=== PATIENT | male | born 1975 | race Two or more races ===

== ENCOUNTER 2016-12-12 10:20 | Inpatient (IN) | payer OTHER ==
[2016-12-12 12:09] VITALS: BMI 21.9
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
[2016-12-12] MEDS ORDERED: guaiFENesin/D-METHORPHAN HB 10 ML UNIT-DOSE CUPS PO PRN (14:38)
[2016-12-12] MEDS ORDERED: MENTHOL/PHENOL 1 EACH UD MM PRN (14:38)
[2016-12-12] MEDS ORDERED: hydrOXYzine PAMOATE 50 MG CAPSULE (FP) PO PRN (14:38)
[2016-12-12] MEDS ORDERED: MAG HYDROX/AL HYDROX/SIMETH 30 ML UNIT-DOSE CUP PO PRN (14:38)
[2016-12-12] MEDS ORDERED: MAGNESIUM CITRATE 300 ML BOTTLE PO PRN (14:38)
[2016-12-12] MEDS ORDERED: P-EPHED 60MG/TRIPROLIDI 2.5MG TABLET PO PRN (14:38)
[2016-12-12] MEDS ORDERED: NICOTINE POLACRILEX 2 MG GUM BUC PRN (14:38)
[2016-12-12] MEDS ORDERED: LOPERAMIDE HCL 2 MG CAPSULE PO PRN (14:38)
[2016-12-12] MEDS ORDERED: MAGNESIUM HYDROX 2400MG/30ML ORAL SUSPENSION 30 ML CUP PO PRN (14:38)
[2016-12-12] MEDS ORDERED: ACETAMINOPHEN 325 MG TABLET (FP) PO PRN (14:38)
[2016-12-12] MEDS ORDERED: IBUPROFEN 400 MG TABLET (FP) PO PRN (14:38)
[2016-12-12] MEDS ORDERED: ALBUTEROL SO4 18 GM HFA INHALER IH PRN (14:53)
[2016-12-12] MEDS ORDERED: METHADONE HCL 10 MG TABLET (FOR DETOX USE ONLY) PO ONE ×2 (15:48→23:00)
[2016-12-12] MEDS: diazePAM 5 MG TABLET PO PRN ×2 (15:58→19:47)
[2016-12-12] MEDS: NICOTINE 14 MG/24 HOURS TOPICAL PATCH TD SCH (15:59)
[2016-12-12 16:09] LABS: HIV 1 & 2 AB NEGATIVE; HIV 1 AGp24 NEGATIVE
[2016-12-12 16:56] LABS: MCH 27.3 pg (25.7-33.7); MEAN CELL VOLUME 82.8 fl (80-96); MEAN PLT VOLUME 8.8 fl (7.5-11.1); PLATELET COUNT 173 K/MM3 (134-434); RDW 13.3 % (11.9-15.9); WHITE BLOOD COUNT 5.1 K/mm3 (4.0-10.0)
[2016-12-12 17:07] LABS: ANION GAP 8 (8-16); CALCIUM 9.1 mg/dL (8.5-10.1); CO2 33 mmol/L (21-32); GLUCOSE,RANDOM 91 mg/dL (74-106)
[2016-12-12 17:10] LABS: ALK PHOS 73 U/L (45-117); BILIRUBIN,TOTAL 0.6 mg/dL (0.2-1.0); CREATININE 0.8 mg/dL (0.7-1.3); SGOT/AST 18 U/L (15-37); SGPT/ALT 34 U/L (12-78); TOT PROT 7.5 g/dl (6.4-8.2)
[2016-12-12] MEDS: CYCLOBENZAPRINE HCL 10 MG TABLET (FP) PO PRN (17:23)
[2016-12-12] MEDS: BACITRACIN 0.9 GM PACKET TP SCH (18:34)
[2016-12-12 21:57] LABS: URINE APPEARANCE CLEAR; URINE BILIRUBIN NEGATIVE (NEGATIVE); URINE BLOOD NEGATIVE (NEGATIVE); URINE COLOR LTYELLOW; URINE GLUCOSE (UA) NEGATIVE (NEGATIVE); URINE KETONE NEGATIVE (NEGATIVE); URINE NITRITE NEGATIVE (NEGATIVE); URINE PROTEIN NEGATIVE (NEGATIVE); URINE UROBILINOGEN NEGATIVE mg/dL (0.2-1.0)
[2016-12-12] MEDS: THIAMINE HCL 100 MG TABLET (FP) PO SCH (22:05)
[2016-12-12] MEDS: MONTELUKAST NA 10 MG TABLET PO SCH (22:06)
[2016-12-12] MEDS: GABAPENTIN 400 MG CAPSULE (FP) PO SCH (22:06)
[2016-12-12 22:47] LABS: URINE LEUK ESTERASE Negative (NEGATIVE)
[2016-12-13] MEDS: diazePAM 5 MG TABLET PO PRN ×6 (01:38→22:11)
[2016-12-13] MEDS: CYCLOBENZAPRINE HCL 10 MG TABLET (FP) PO PRN ×2 (05:21→14:20)
--- NOTE | 2016-12-13 09:49 | PN ---
[facility] COWS - Scale Resting Pulse: 0= [place] 80 or Below Sweatin= Chills/Flushing Restless Observation: 3= Extraneous Movement Pupil Size: 2= Moderately Dilated Bone or Joint Aches: 4=Acute Joint/Muscle Pain Runny Nose/ Eye Tearin= None GI Upset > 30mins: 0= None Tremor Observation of Outstretched Hands: 1= Tremor [place], Not Seen Yawning Observation: 1= 1-2x During Session Anxiety or Irritability: 2=Irritable/Anxious Goose Flesh Skin: 0=Smooth Skin COWS Score: 14 BHS Progress Note (SOAP) Subjective: ANXIETY,SWEATS,CHILLS, MUSCLE ACHES. Objective: 12/13/16 09:48 Vital Signs Temperature 96.1 F L 12/13/16 09:35 Pulse Rate 80 12/13/16 09:35 Respiratory Rate 18 12/13/16 09:35 Blood Pressure 115/62 12/13/16 09:35 O2 Sat by Pulse Oximetry (%) Laboratory Last Values WBC 5.1 K/mm3 (4.0-10.0) 12/12/16 14:00 RBC 5.20 M/mm3 (4.00-5.60) 12/12/16 14:00 Hgb 14.2 GM/dL (11.7-16.9) 12/12/16 14:00 Hct 43.0 % (35.4-49) 12/12/16 14:00 MCV 82.8 fl (80-96) 12/12/16 14:00 MCH 27.3 pg (25.7-33.7) 12/12/16 14:00 MCHC 33.0 g/dl (32.0-35.9) 12/12/16 14:00 RDW 13.3 % (11.9-15.9) 12/12/16 14:00 Plt Count 173 K/MM3 (134-434) 12/12/16 14:00 MPV 8.8 fl (7.5-11.1) 12/12/16 14:00 Sodium 139 mmol/L (136-145) 12/12/16 14:00 Potassium 4.5 mmol/L (3.5-5.1) 12/12/16 14:00 Chloride 98 mmol/L (98-107) 12/12/16 14:00 Carbon Dioxide 33 mmol/L (21-32) H 12/12/16 14:00 Anion Gap 8 (8-16) 12/12/16 14:00 BUN 18 mg/dL (7-18) 12/12/16 14:00 Creatinine 0.8 mg/dL (0.7-1.3) 12/12/16 14:00 Creat Clearance w eGFR > 60 (>60) 12/12/16 14:00 Random Glucose 91 mg/dL (74-106) 12/12/16 14:00 Calcium 9.1 mg/dL (8.5-10.1) 12/12/16 14:00 Total Bilirubin 0.6 mg/dL (0.2-1.0) 12/12/16 14:00 AST 18 U/L (15-37) 12/12/16 14:00 ALT 34 U/L (12-78) 12/12/16 14:00 Alkaline Phosphatase 73 U/L (45-117) 12/12/16 14:00 Total Protein 7.5 g/dl (6.4-8.2) 12/12/16 14:00 Albumin 4.0 g/dl (3.4-5.0) 12/12/16 14:00 Urine Color Ltyellow 12/12/16 21:30 Urine Appearance Clear 12/12/16 21:30 Urine pH 6.0 (5.0-8.0) 12/12/16 21:30 Ur Specific [place] 1.020 (1.005-1.025) 12/12/16 21:30 Urine Protein Negative (NEGATIVE) 12/12/16 21:30 Urine Glucose (UA) Negative (NEGATIVE) 12/12/16 21:30 Urine Ketones Negative (NEGATIVE) 12/12/16 21:30 Urine Blood Negative (NEGATIVE) 12/12/16 21:30 Urine Nitrite Negative (NEGATIVE) 12/12/16 21:30 Urine Bilirubin Negative (NEGATIVE) 12/12/16 21:30 Urine Urobilinogen Negative mg/dL (0.2-1.0) 12/12/16 21:30 Ur Leukocyte Esterase Negative (NEGATIVE) 12/12/16 21:30 HIV 1&2 Antibody Screen Negative 12/12/16 12:00 HIV P24 Antigen Negative 12/12/16 12:00 Assessment: 12/13/16 09:49 WITHDRAWAL SX Plan: CONTINUE DETOX
[2016-12-13] MEDS ORDERED: METHADONE HCL 10 MG TABLET (FOR DETOX USE ONLY) PO ONE (10:00)
[2016-12-13] MEDS: GABAPENTIN 400 MG CAPSULE (FP) PO SCH ×2 (10:04→22:08)
[2016-12-13] MEDS: PANTOPRAZOLE 20 MG TABLET (FP) PO SCH (10:04)
[2016-12-13] MEDS: PRENATAL VITAMINS W/ FOLIC ACID TABLET (FP) PO SCH (10:04)
[2016-12-13] MEDS: BACITRACIN 0.9 GM PACKET TP SCH (10:04)
[2016-12-13] MEDS: NICOTINE 14 MG/24 HOURS TOPICAL PATCH TD SCH (10:05)
--- NOTE | 2016-12-13 12:05 | EKG ---
Test Reason : Blood Pressure : / mmHG Vent. Rate : 061 BPM Atrial Rate : 061 BPM P-R Int : 122 ms QRS Dur : 092 ms QT Int : 424 ms P-R-T Axes : 030 062 056 degrees QTc Int : 426 ms NORMAL SINUS RHYTHM NORMAL ECG NO PREVIOUS ECGS AVAILABLE Confirmed by DONITA STANTON MD ([id number]) on 12/13/2016 12:04:52 PM Referred By: Confirmed By:DONITA STANTON MD
--- NOTE | 2016-12-13 13:05 | CONSULT ---
[facility] Psychiatric Consult - Data Date of interview: 12/13/16 Admission source: [facility] Identifying data: Another admission to [facility] for this 41 y/o male seeking detox treatment on for heroin and xanax dependence.Patient is single without children,domiciled,unemployed and supported on SSI benefits. Substance Abuse History: Confirmed by the patient in this interview. Smoking Cessation. Smoking history: Current every day smoker. Have you smoked in the past 12 months: Yes. Aproximately how many cigarettes per day: 4. Cigars Per Day: 0. Hx Chewing Tobacco Use: No. Initiated information on smoking cessation : Yes. 'Breaking Loose' booklet given: 12/12/16 (GIVEN TO PATIENT.). - Substance & Tx. History. Hx Alcohol Use: No. Hx Substance Use: Yes. Substance Use Type: Heroin, Tranquilizers. Hx Substance Use Treatment: Yes ( Previous Detox admissions at [facility]; Last Detox Admssion: 11/2016.). - Substances Abused. Heroin. Route: Injection. Frequency: Daily. Amount used: 5-10 BAGS. Age of first use: 21. Date of Last Use: 12/11/16. KLONOPIN OR XANAX. Route: Oral. Frequency: Daily. Amount used: 3-5 PILLS (1- 2 mg per pill). Age of first use: 18. Date of Last Use: 12/12/16 Medical History: Remarkable for GERD,anemia,bronchial asthma and hepatitis C. Psychiatric History: Diagnosed with Bipolar Disorder,MDD and Anxiety Disorder.Onset of psychiatric disturbances (age 14).History of multiple psychiatric hospitalizations (all occurred in [place], [place] and [facility]) .Patient denies active OPD care at this time.Used to be on a regimen of remeron 30 mg/hs + wellbutrin XL 150 mg/day + ambien 10 mg/hs." I have not taken these medications for a while." Mr Mazariegos admits to a history of suicide attempt years ago (via overdose with pills). Physical/Sexual Abuse/Trauma History: No reported history of abuse. Additional Comment: Urine Drug Screen Results: OPI-Opiates, MTD-Methadone.Noted. Mental Status Exam - Mental Status Exam Alert and Oriented to: Time, Place, Person Cognitive Function: Good Patient Appearance: Unkempt, Disheveled (covered with tattoos) Mood: Nervous, Withdrawn, Anxious Affect: Mood Congruent Patient Behavior: Fatigued, Cooperative Speech Pattern: Clear Voice Loudness: Normal Thought Process: Goal Oriented Thought Disorder: Not Present Hallucinations: Denies Suicidal Ideation: Denies Homicidal Ideation: Denies Insight/Judgement: Poor Sleep: Poorly, Difficulty falling asleep Appetite: Fair Muscle strength/Tone: Normal Gait/Station: Normal Psychiatric Findings - Problem List ([place] 1, 2,3) (1) Opioid dependence with withdrawal Current Visit: Yes Status: Acute (2) Drug-induced mood disorder Current Visit: Yes Status: Acute (3) Sedative hypnotic or anxiolytic dependence Current Visit: Yes Status: Chronic (4) Nicotine dependence Current Visit: Yes Status: Chronic Qualifiers: Nicotine product type: cigarettes Substance use status: uncomplicated Qualified Code(s): F17.210 - Nicotine dependence, cigarettes, uncomplicated; F17.210 - Nicotine dependence, cigarettes, uncomplicated (5) Substance induced mood disorder Current Visit: Yes Status: Acute (6) Asthma Current Visit: Yes Status: Chronic (7) Gastroesophageal reflux disease Current Visit: Yes Status: Chronic (8) Hepatitis C Current Visit: Yes Status: Chronic Qualifiers: Viral hepatitis chronicity: chronic Hepatic coma status: without hepatic coma Qualified Code(s): B18.2 - Chronic viral hepatitis C; B18.2 - Chronic viral hepatitis C; B18.2 - Chronic viral hepatitis C; B18.2 - Chronic viral hepatitis C (9) History of herniated intervertebral disc Current Visit: Yes Status: Chronic Comment: Thoracic and Lumbar Spinal Areas. (10) Chronic back pain Current Visit: No Status: Chronic (11) Neuropathy Current Visit: No Status: Chronic (12) Insomnia Current Visit: Yes Status: Acute - Initial Treatment Plan Initial Treatment Plan: Psychoeducation.Detoxification.WellbutrinXL 150 mg po daily (patient's request).Mr Mazariegos is informed of risk of seizures.Agrees to follow this careplan.Observation.Pharmacy claims are reviewed : most recent script for wellbutrin XL and remeron were issued on 10/08/15 at Pharmacy).
[2016-12-13] MEDS: MONTELUKAST NA 10 MG TABLET PO SCH (22:08)
[2016-12-13] MEDS: THIAMINE HCL 100 MG TABLET (FP) PO SCH (22:09)
[2016-12-14] MEDS: diazePAM 5 MG TABLET PO PRN ×3 (05:07→14:18)
[2016-12-14] MEDS: CYCLOBENZAPRINE HCL 10 MG TABLET (FP) PO PRN ×2 (05:07→14:18)
[2016-12-14] MEDS ORDERED: METHADONE HCL 5 MG TABLET (FOR DETOX USE ONLY) PO ONE (10:00)
[2016-12-14] MEDS: PRENATAL VITAMINS W/ FOLIC ACID TABLET (FP) PO SCH (10:10)
[2016-12-14] MEDS: NICOTINE 14 MG/24 HOURS TOPICAL PATCH TD SCH (10:10)
[2016-12-14] MEDS: PANTOPRAZOLE 20 MG TABLET (FP) PO SCH (10:10)
[2016-12-14] MEDS: GABAPENTIN 400 MG CAPSULE (FP) PO SCH (10:10)
[2016-12-14] MEDS: BACITRACIN 0.9 GM PACKET TP SCH (10:10)
--- NOTE | 2016-12-14 11:48 | PN ---
[facility] CIWA - CIWA Score Nausea/Vomitin-No Nausea/No Vomiting Muscle Tremors: 4-Moderate,w/Arms Extend Anxiety: 4-Mod. Anxious/Guarded Agitation: 1-Slight > Activity Paroxysmal Sweats: 3 Orientation: 0-Oriented Tacttile Disturbances: 2-Mild Itch/Numbness/Burn Auditory Disturbances: 0-None Visual Disturbances: 2-Mild Sensitivity Headache: 0-None Present CIWA-Ar Total Score: 16 S Progress Note (SOAP) Subjective: Sweating, Anxious, Body Aches, Tremors. Objective: PT. A & O X 3, OBSERVED AMBULATING ON UNIT. NO ACUTE DISTRESS. 12/14/16 11:52 Vital Signs Temperature 96.8 F L 12/14/16 09:53 Pulse Rate 74 12/14/16 09:53 Respiratory Rate 18 12/14/16 09:53 Blood Pressure 113/82 12/14/16 09:53 O2 Sat by Pulse Oximetry (%) Laboratory Tests 12/12/16 12/12/16 12/12/16 12:00 14:00 14:00 WBC 5.1 RBC 5.20 Hgb 14.2 Hct 43.0 MCV 82.8 MCH 27.3 MCHC 33.0 RDW 13.3 Plt Count 173 MPV 8.8 Sodium 139 Potassium 4.5 Chloride 98 Carbon Dioxide 33 H Anion Gap 8 BUN 18 Creatinine 0.8 Creat Clearance w eGFR > 60 Random Glucose 91 Calcium 9.1 Total Bilirubin 0.6 AST 18 ALT 34 Alkaline Phosphatase 73 Total Protein 7.5 Albumin 4.0 Urine Color Urine Appearance Urine pH Ur Specific [place] Urine Protein Urine Glucose (UA) Urine Ketones Urine Blood Urine Nitrite Urine Bilirubin Urine Urobilinogen Ur Leukocyte Esterase RPR Titer HIV 1&2 Antibody Screen Negative HIV P24 Antigen Negative 12/12/16 12/12/16 14:00 21:30 WBC RBC Hgb Hct MCV MCH MCHC RDW Plt Count MPV Sodium Potassium Chloride Carbon Dioxide Anion Gap BUN Creatinine Creat Clearance w eGFR Random Glucose Calcium Total Bilirubin AST ALT Alkaline Phosphatase Total Protein Albumin Urine Color Ltyellow Urine Appearance Clear Urine pH 6.0 Ur Specific [place] 1.020 Urine Protein Negative Urine Glucose (UA) Negative Urine Ketones Negative Urine Blood Negative Urine Nitrite Negative Urine Bilirubin Negative Urine Urobilinogen Negative Ur Leukocyte Esterase Negative RPR Titer Nonreactive HIV 1&2 Antibody Screen HIV P24 Antigen LABS NOTED. Assessment: 12/14/16 11:53 WITHDRAWAL SYMPTOMS. Plan: CONTINUE DETOX.
[2016-12-14 17:44] VITALS: BP 104/60; PULSE 85; TEMP 97.3
--- NOTE | 2016-12-14 22:34 | DS ---
[facility] Detox Discharge Summary Admission Date: 12/12/16 Discharge Date: 12/14/16 - History Present History: Opioid Dependence Additional Comments: received nurse call that the patient wants to leave the facility refuses to wait face to face with the provider Pertinent Past History: hepatitis c asthma nicotine dependence - Physical Exam Results Vital Signs: Vital Signs Temperature 97.3 F L 12/14/16 17:43 Pulse Rate 85 12/14/16 17:43 Respiratory Rate 18 12/14/16 17:43 Blood Pressure 104/60 12/14/16 17:43 O2 Sat by Pulse Oximetry (%) Pertinent Admission Physical Exam Findings: withdrawal sx Laboratory Last Values WBC 5.1 K/mm3 (4.0-10.0) 12/12/16 14:00 RBC 5.20 M/mm3 (4.00-5.60) 12/12/16 14:00 Hgb 14.2 GM/dL (11.7-16.9) 12/12/16 14:00 Hct 43.0 % (35.4-49) 12/12/16 14:00 MCV 82.8 fl (80-96) 12/12/16 14:00 MCH 27.3 pg (25.7-33.7) 12/12/16 14:00 MCHC 33.0 g/dl (32.0-35.9) 12/12/16 14:00 RDW 13.3 % (11.9-15.9) 12/12/16 14:00 Plt Count 173 K/MM3 (134-434) 12/12/16 14:00 MPV 8.8 fl (7.5-11.1) 12/12/16 14:00 Sodium 139 mmol/L (136-145) 12/12/16 14:00 Potassium 4.5 mmol/L (3.5-5.1) 12/12/16 14:00 Chloride 98 mmol/L (98-107) 12/12/16 14:00 Carbon Dioxide 33 mmol/L (21-32) H 12/12/16 14:00 Anion Gap 8 (8-16) 12/12/16 14:00 BUN 18 mg/dL (7-18) 12/12/16 14:00 Creatinine 0.8 mg/dL (0.7-1.3) 12/12/16 14:00 Creat Clearance w eGFR > 60 (>60) 12/12/16 14:00 Random Glucose 91 mg/dL (74-106) 12/12/16 14:00 Calcium 9.1 mg/dL (8.5-10.1) 12/12/16 14:00 Total Bilirubin 0.6 mg/dL (0.2-1.0) 12/12/16 14:00 AST 18 U/L (15-37) 12/12/16 14:00 ALT 34 U/L (12-78) 12/12/16 14:00 Alkaline Phosphatase 73 U/L (45-117) 12/12/16 14:00 Total Protein 7.5 g/dl (6.4-8.2) 12/12/16 14:00 Albumin 4.0 g/dl (3.4-5.0) 12/12/16 14:00 Urine Color Ltyellow 12/12/16 21:30 Urine Appearance Clear 12/12/16 21:30 Urine pH 6.0 (5.0-8.0) 12/12/16 21:30 Ur Specific [place] 1.020 (1.005-1.025) 12/12/16 21:30 Urine Protein Negative (NEGATIVE) 12/12/16 21:30 Urine Glucose (UA) Negative (NEGATIVE) 12/12/16 21:30 Urine Ketones Negative (NEGATIVE) 12/12/16 21:30 Urine Blood Negative (NEGATIVE) 12/12/16 21:30 Urine Nitrite Negative (NEGATIVE) 12/12/16 21:30 Urine Bilirubin Negative (NEGATIVE) 12/12/16 21:30 Urine Urobilinogen Negative mg/dL (0.2-1.0) 12/12/16 21:30 Ur Leukocyte Esterase Negative (NEGATIVE) 12/12/16 21:30 RPR Titer Nonreactive (NONREACTIVE) 12/12/16 14:00 HIV 1&2 Antibody Screen Negative 12/12/16 12:00 HIV P24 Antigen Negative 12/12/16 12:00 lab noted - Treatment Hospital Course: Detox Protocol Followed, Responded well - Medication Discharge Medications: Ambulatory Orders Montelukast Na [Singulair -] 10 mg PO HS 11/08/11 Albuterol Sulfate Inhaler - [Ventolin HFA Inhaler -] 2 inh PO Q6H PRN 01/19/14 Gabapentin [Neurontin -] 800 mg PO Q12H 01/19/14 Omeprazole [Prilosec] 20 mg PO DAILY 07/27/15 Bupropion HCl [Wellbutrin Xl -] 150 mg PO DAILY #30 tab.sr.24h 11/05/15 Mirtazapine [Remeron -] 15 mg PO HS #30 tablet 11/05/15 Bupropion HCl [Wellbutrin Xl -] 150 mg PO DAILY #30 tab.sr.24h 12/13/16 - Diagnosis (1) Opioid dependence with withdrawal Status: Acute (2) Asthma Status: Chronic (3) Gastroesophageal reflux disease Status: Chronic (4) Hepatitis C Status: Resolved Qualifiers: Viral hepatitis chronicity: unspecified Hepatic coma status: without hepatic coma Qualified Code(s): B19.20 - Unspecified viral hepatitis C without hepatic coma; B19.20 - Unspecified viral hepatitis C without hepatic coma (5) Nicotine dependence Status: Acute Qualifiers: Nicotine product type: cigarettes Substance use status: in withdrawal Qualified Code(s): F17.213 - Nicotine dependence, cigarettes, with withdrawal; F17.213 - Nicotine dependence, cigarettes, with withdrawal (6) Neuropathy Status: Chronic - AMA Did Patient Leave Against Medical Advice: Yes
[2016-12-15] MEDS ORDERED: METHADONE HCL 5 MG TABLET (FOR DETOX USE ONLY) PO ONE (10:00)
[2016-12-16] MEDS ORDERED: METHADONE HCL 10 MG TABLET (FOR DETOX USE ONLY) PO ONE (10:00)
[2016-12-17] MEDS ORDERED: METHADONE HCL 5 MG TABLET (FOR DETOX USE ONLY) PO ONE (06:00)
== END 2016-12-14 19:19 | disposition left against medical advice (07) | DRG 770 ==
LOC: YASAS 10:20 → Y3N 14:17
PROVIDERS: ADMIT Internal Medicine; ATTEND Internal Medicine
PROC: HZ2ZZZZ Detoxification Services for Substance Abuse Treatment (ICD-10-PCS; principal; 2016-12-12)
DX: F11.23 Opioid dependence with withdrawal (principal); F13.20 Sedative, hypnotic or anxiolytic dependence, uncomplicated; F17.213 Nicotine dependence, cigarettes, with withdrawal; F31.9 Bipolar disorder, unspecified; F19.24 Other psychoactive substance dependence with psychoactive substance-induced mood disorder; F41.8 Other specified anxiety disorders; J45.909 Unspecified asthma, uncomplicated; K21.9 Gastro-esophageal reflux disease without esophagitis; B19.20 Unspecified viral hepatitis C without hepatic coma; G62.9 Polyneuropathy, unspecified; M54.5 Low back pain; G89.29 Other chronic pain; G47.00 Insomnia, unspecified; D50.9 Iron deficiency anemia, unspecified; Z88.0 Allergy status to penicillin; Z91.5 Personal history of self-harm
CPT/HCPCS: 36415; 80053; 81003; 85027; 86593; 87389; 93005; 93010

== ENCOUNTER 2017-05-27 08:22 | Inpatient (IN) | payer OTHER ==
[2017-05-27 10:10] VITALS: BMI 22.7
--- NOTE | 2017-05-27 10:37 | HP ---
COWS - Scale Resting Pulse: 0= [place] 80 or Below Sweatin=Flushed/Facial Moisture Restless Observation: 1= Difficult to Sit Still Pupil Size: 1= Pupils >than Normal Bone or Joint Aches: 2= Severe Diffuse Aches Runny Nose/ Eye Tearin= Nasal Congestion GI Upset > 30mins: 2= Nausea/Diarrhea Tremor Observation: 1= Tremor [place], Not Seen Yawning Observation: 1= 1-2x During Session Anxiety or Irritability: 2=Irritable/Anxious Goose Flesh Skin: 0=Smooth Skin COWS Score: [address] [facility] Chief Complaint: Patient presents for Heroin withdrawal symptoms. Allergies/Adverse Reactions: Allergies Allergy/AdvReac Type Severity Reaction Status Date / Time penicillin G Allergy Severe Rash Verified 05/27/17 10:09 History of Present Illness: Patient presents for Heroin withdrawal symptoms. Has history of depression, anxiety, asthma and anemia. Currently treated for depression and anxiety with Klonipin and Wellbutrin at [facility]. Was admitted to [facility] for detox in 12/2016. Patient left AMA due to anxiety. Started using heroin and methadone strips soon after. Denies having any seizures or blackouts. No SI reported. Denies any recent suicide attempts. Exam Limitations: No Limitations - Ebola screening Have you traveled outside of the country in the last 21 days: No (N) Have you had contact with anyone from an Ebola affected area: No Have you been sick,other than usual withdrawal symptoms: No Do you have a fever: No - Review of Systems Constitutional: Chills, Night Sweats, Changes in sleep, Unexplained wgt Loss EENT: reports: Nose Congestion Respiratory: reports: No Symptoms reported Cardiac: reports: No Symptoms Reported GI: reports: Diarrhea, Nausea, Abdominal cramping : reports: No Symptoms Reported Musculoskeletal: reports: Joint Pain, Muscle Pain Integumentary: reports: Sweating Neuro: reports: No Symptoms reported, Headache Endocrine: reports: Increased Thirst, Unexplained Weight Loss Hematology: reports: Anemia Psychiatric: reports: Orientated x3, Anxious, Depressed Patient History - Patient Medical History Hx Anemia: Yes (Iron-Deficiency.) Hx Asthma: Yes Hx Chronic Obstructive Pulmonary Disease (COPD): No Hx Cancer: No Hx Cardiac Disorders: No Hx Congestive Heart Failure: No Hx Hypertension: No Hx Hypercholesterolemia: No Hx Pacemaker: No HX Cerebrovascular Accident: No Hx Seizures: No Hx Dementia: No Hx Diabetes: No Hx Gastrointestinal Disorders: Yes (acid reflux) Hx Liver Disease: Yes (Hepatitis C (diagnosed 2011); Undetectable Viral Load without treatment.) Hx Genitourinary Disorders: No Hx Sexually Transmitted Disorders: No Hx Renal Disease (ESRD): No Hx Thyroid Disease: No Hx Human Immunodeficiency Virus (HIV): No (LAST TESTED 12/12/16. RESULTS NEGATIVE) Hx Hepatitis C: Yes (Diagnosed 2011); Undetectable Viral Load without treatment. ) Hx Depression: Yes Hx Suicide Attempt: Yes (pill overdose at age 21. Pt denies SI and any recent attempts of suicide) Hx Bipolar Disorder: Yes (On meds.) Hx Schizophrenia: No - Patient Surgical History Past Surgical History: No Hx Neurologic Surgery: No Hx Cataract Extraction: No Hx Cardiac Surgery: No Hx Lung Surgery: No Hx Breast Surgery: No Hx Breast Biopsy: No Hx Abdominal Surgery: No Hx Appendectomy: No Hx Cholecystectomy: No Hx Genitourinary Surgery: No Hx Section: No Hx Orthopedic Surgery: No Anesthesia Reaction: No - PPD History Previous Implant?: Yes Implanted On Prior [facility] Admission?: Yes Date: 12/14/16 Results: 0 mm - Smoking Cessation Smoking history: Current every day smoker Have you smoked in the past 12 months: Yes Aproximately how many cigarettes per day: 4 Cigars Per Day: 0 Hx Chewing Tobacco Use: No Initiated information on smoking cessation: Yes 'Breaking Loose' booklet given: 05/27/17 - Substances Abused Heroin Route: Injection Frequency: Daily Amount used: 4 bags Age of first use: 21 Date of Last Use: 05/27/17 Family Disease History - Family Disease History Family Disease History: Heart Disease: Mother, Other: Father (DRUG AND ALCOHOL, ALIVE STILL DRINKS) Admission Physical Exam BHS - Vital Signs Vital Signs: Vital Signs - 24 hr 05/27/17 10:08 Temperature 96.9 F L Pulse Rate 73 Respiratory 20 Rate Blood Pressure 121/74 BHS Breath Alcohol Content Breath Alcohol Content: 0 Urine Drug Screen - Results Drug Screen Negative: No Urine Drug Screen Results: OPI-Opiates, BZO-Benzodiazepines, MTD-Methadone, TCA- Tricyclic Antidepress Inpatient Rehab Admission - Initial Determination Are CD services needed?: Yes Free of communicable disease: Yes Not in need of hospitalization: Yes - Rehab Admission Criteria Previous failed treatment: Yes Poor recovery environment: Yes Comorbidities: Yes Lacks judgement: Yes
[2017-05-27] MEDS ORDERED: chlordiazePOXIDE HCL 25 MG CAPSULE PO PRN (10:51)
[2017-05-27] MEDS ORDERED: MAG HYDROX/AL HYDROX/SIMETH 30 ML UNIT-DOSE CUP PO PRN ×2 (10:53→15:06)
[2017-05-27] MEDS ORDERED: hydrOXYzine PAMOATE 50 MG CAPSULE (FP) PO PRN (10:53)
[2017-05-27] MEDS ORDERED: IBUPROFEN 400 MG TABLET (FP) PO PRN (10:53)
[2017-05-27] MEDS ORDERED: guaiFENesin/D-METHORPHAN HB 10 ML UNIT-DOSE CUPS PO PRN ×2 (10:53→15:06)
[2017-05-27] MEDS ORDERED: LOPERAMIDE HCL 2 MG CAPSULE PO PRN ×2 (10:53→15:06)
[2017-05-27] MEDS ORDERED: MAGNESIUM CITRATE 300 ML BOTTLE PO PRN ×2 (10:53→15:06)
[2017-05-27] MEDS ORDERED: MAGNESIUM HYDROX 2400MG/30ML ORAL SUSPENSION 30 ML CUP PO PRN ×2 (10:53→15:06)
[2017-05-27] MEDS ORDERED: NICOTINE POLACRILEX 2 MG GUM BUC PRN (10:53)
[2017-05-27] MEDS ORDERED: ACETAMINOPHEN 325 MG TABLET (FP) PO PRN ×2 (10:53→15:06)
[2017-05-27] MEDS ORDERED: P-EPHED 60MG/TRIPROLIDI 2.5MG TABLET PO PRN ×2 (10:53→15:06)
[2017-05-27] MEDS ORDERED: MENTHOL/PHENOL 1 EACH UD MM PRN ×2 (10:53→15:06)
[2017-05-27] MEDS ORDERED: ALBUTEROL SO4 18 GM HFA INHALER IH PRN (11:02)
[2017-05-27] MEDS ORDERED: chlordiazePOXIDE HCL 25 MG CAPSULE PO ONE (13:55)
[2017-05-27] MEDS ORDERED: METHADONE HCL 10 MG TABLET (FOR DETOX USE ONLY) PO ONE ×4 (14:00→23:00)
--- NOTE | 2017-05-27 14:57 | EKG ---
Test Reason : Blood Pressure : / mmHG Vent. Rate : 051 BPM Atrial Rate : 051 BPM P-R Int : 138 ms QRS Dur : 090 ms QT Int : 442 ms P-R-T Axes : 029 041 046 degrees QTc Int : 407 ms SINUS BRADYCARDIA OTHERWISE NORMAL ECG WHEN COMPARED WITH ECG OF 12-DEC-2016 15:53, NO SIGNIFICANT CHANGE WAS FOUND Confirmed by GABRIELLA LEE MD ([id number]) on 05/27/2017 2:57:21 PM Referred By: Confirmed By:GABRIELLA LEE MD
[2017-05-27] MEDS ORDERED: diazePAM 5 MG TABLET PO ONE (15:05)
[2017-05-27] MEDS: diazePAM 5 MG TABLET PO SCH ×2 (15:30→22:10)
[2017-05-27] MEDS: IBUPROFEN 400 MG TABLET (FP) PO PRN (15:38)
--- NOTE | 2017-05-27 15:51 | CONSULT ---
[facility] Psychiatric Consult - Data Date of interview: 05/27/17 Admission source: [facility] Identifying data: One of several admissions to [facility] for this 42 y/o male seeking detox treatment on for heroin dependence.Patient is single without children,domiciled,unemployed and supported on SSI benefits. Substance Abuse History: Discussed with patient.Mr Mazariegos endorses a 20 year history of substance abuse (self-injects 4-5 bags of heroin intravenously on a daily basis).See more details in the current [facility] report : Smoking history: Current every day smoker. Have you smoked in the past 12 months: Yes. Aproximately how many cigarettes per day: 4. Cigars Per Day: 0. Hx Chewing Tobacco Use: No. Initiated information on smoking cessation: Yes. 'Breaking Loose' booklet given: 05/27/17. - Substances Abused. Heroin. Route: Injection. Frequency: Daily. Amount used: 4 bags. Age of first use: 21. Date of Last Use: 05/27/17 Medical History: Arthritis,three herniated discs (self-report),hepatitis C, bronchial asthma,GERD,anemia and bronchial asthma. Psychiatric History: multiple psychiatric hospitalizations ([facility], facilities in [facility] and [facility]).Diagnosed with Bipolar Disorder,MDD and Anxiety Disorder.Early onset of psychiatric disturbances (age 14).Mr Mazariegos reports that he sees a psychiatrist for outpatient care at the [facility] in the [place].Prescribed remeron 30 mg/hs + wellbutrin XL 150 mg/day + ambien 10 mg/hs.Last taken prior to this [facility] visit as per patient.[place] known history of suicide attempts (1992 : wrist-cutting + overdose with street pills in 1998). Physical/Sexual Abuse/Trauma History: Patient denies history of abuse. Additional Comment: Urine Drug Screen Results: OPI-Opiates, BZO-Benzodiazepines , MTD-Methadone, TCA-Tricyclic Antidepressant.Noted. I Mental Status Exam - Mental Status Exam Alert and Oriented to: Time, Place, Person Cognitive Function: Good Patient Appearance: Well Groomed Mood: Withdrawn Affect: Appropriate, Normal Range Patient Behavior: Fatigued, Appropriate, Cooperative Speech Pattern: Clear, Appropriate Voice Loudness: Normal Thought Process: Intact, Goal Oriented Thought Disorder: Not Present Hallucinations: Denies Suicidal Ideation: Denies Homicidal Ideation: Denies Insight/Judgement: Poor Sleep: Poorly, Difficulty falling asleep Appetite: Good Muscle strength/Tone: Normal Gait/Station: Normal Psychiatric Findings - Problem List ([place] 1, 2,3) (1) Opioid dependence with withdrawal Current Visit: Yes Status: Acute (2) Nicotine dependence Current Visit: Yes Status: Acute Qualifiers: Nicotine product type: cigarettes Substance use status: in withdrawal Qualified Code(s): F17.213 - Nicotine dependence, cigarettes, with withdrawal (3) MDD (major depressive disorder) Current Visit: Yes Status: Chronic Comment: As per self-report and records.On medications. (4) Insomnia Current Visit: Yes Status: Acute - Initial Treatment Plan Initial Treatment Plan: Records revisited.Sleep hygiene.Detoxification in progress.Medications reconciled : wellbutrin XL 150 mg po daily + remeron 15 mg po hs.Side effects/benefits of both drugs are discussed with the patient.Mr Mazariegos has expressed his agreement with this careplan.Observation.
[2017-05-27] MEDS ORDERED: chlordiazePOXIDE HCL 25 MG CAPSULE PO SCH (17:00)
[2017-05-27] MEDS: diazePAM 5 MG TABLET PO PRN (19:46)
[2017-05-27] MEDS ORDERED: MONTELUKAST NA 10 MG TABLET PO SCH (22:00)
[2017-05-27] MEDS ORDERED: MELATONIN 5 MG TABLETS PO SCH (22:00)
[2017-05-27] MEDS ORDERED: THIAMINE HCL 100 MG TABLET (FP) PO SCH (22:00)
[2017-05-27] MEDS: MIRTAZAPINE 15 MG TABLET (FP) PO SCH (22:10)
[2017-05-27] MEDS: THIAMINE HCL 100 MG TABLET (FP) PO SCH (22:10)
[2017-05-27] MEDS: MELATONIN 5 MG TABLETS PO SCH (22:10)
[2017-05-27] MEDS: GABAPENTIN 300 MG CAPSULE (FP) PO SCH (22:10)
[2017-05-28] MEDS: diazePAM 5 MG TABLET PO PRN ×3 (03:29→17:37)
[2017-05-28] MEDS: GABAPENTIN 300 MG CAPSULE (FP) PO SCH ×3 (05:21→22:11)
[2017-05-28] MEDS: diazePAM 5 MG TABLET PO SCH ×3 (05:21→22:11)
[2017-05-28] MEDS: IBUPROFEN 400 MG TABLET (FP) PO PRN (08:54)
--- NOTE | 2017-05-28 09:43 | PN ---
S CIWA - CIWA Score Nausea/Vomitin-No Nausea/No Vomiting Muscle Tremors: 4-Moderate,w/Arms Extend Anxiety: 4-Mod. Anxious/Guarded Agitation: 3 Paroxysmal Sweats: 1-Minimal Palms Moist Orientation: 0-Oriented Tacttile Disturbances: 0-None Auditory Disturbances: 0-None Visual Disturbances: 0-None Headache: 0-None Present CIWA-Ar Total Score: 12 S COWS - Scale Resting Pulse: 0= [place] 80 or Below Sweatin= Chills/Flushing Restless Observation: 3= Extraneous Movement Pupil Size: 2= Moderately Dilated Bone or Joint Aches: 1= Mild Discomfort Runny Nose/ Eye Tearin= None GI Upset > 30mins: 0= None Tremor Observation of Outstretched Hands: 2= Slight Tremor Visible Yawning Observation: 1= 1-2x During Session Anxiety or Irritability: 2=Irritable/Anxious Goose Flesh Skin: 0=Smooth Skin COWS Score: 12 S Progress Note (SOAP) Subjective: C/O TREMORS,SWEATS-HOT/COLD CHILLS. ALERT O X 3. OOB WALKING WITH STEADY GAIT ON HALLWAY, EXPREESED ANXIETY AND REQUESTING PRN TO RELIEVE ANXIETY. ON METH/ MADDIE REGIMEN. . Objective: 05/28/17 09:43 Vital Signs Temperature 96.4 F L 05/28/17 09:25 Pulse Rate 58 L 05/28/17 09:25 Respiratory Rate 18 05/28/17 09:25 Blood Pressure 106/71 05/28/17 09:25 O2 Sat by Pulse Oximetry (%) Laboratory Last Values HIV 1&2 Antibody Screen Negative 05/27/17 12:10 HIV P24 Antigen Negative 05/27/17 12:10 OTHER LAB RESULTS PENDING Assessment: 05/28/17 09:43 WITHDRAWAL SX Plan: CONTINUE DETOX MEDS DIRECTED INCREASE PO FLUIDS
[2017-05-28] MEDS ORDERED: METHADONE HCL 10 MG TABLET (FOR DETOX USE ONLY) PO SCH ×2 (10:00)
[2017-05-28] MEDS ORDERED: PRENATAL VITAMINS W/ FOLIC ACID TABLET (FP) PO SCH (10:00)
[2017-05-28] MEDS ORDERED: NICOTINE 21 MG/24 HOURS TOPICAL PATCH TD SCH (10:00)
[2017-05-28 10:01] LABS: HEMATOCRIT 41.9 % (35.4-49); HEMOGLOBIN 13.8 GM/dL (11.7-16.9); MCH 27.2 pg (25.7-33.7); MCHC 32.9 g/dl (32.0-35.9); MEAN CELL VOLUME 82.6 fl (80-96); MEAN PLT VOLUME 8.8 fl (7.5-11.1); PLATELET COUNT 207 K/MM3 (134-434); RBC 5.08 M/mm3 (4.00-5.60); RDW 14.1 % (11.9-15.9); WHITE BLOOD COUNT 4.7 K/mm3 (4.0-10.0)
[2017-05-28 10:18] LABS: ALBUMIN 3.9 g/dl (3.4-5.0); ALK PHOS 65 U/L (45-117); ANION GAP 6 (8-16); BILIRUBIN,TOTAL 0.5 mg/dL (0.2-1.0); BLOOD UREA NITROGEN 15 mg/dL (7-18); CALCIUM 8.7 mg/dL (8.5-10.1); CHLORIDE 105 mmol/L (98-107); CO2 30 mmol/L (21-32); CREATININE 0.9 mg/dL (0.7-1.3); GLUCOSE,RANDOM 68 mg/dL (74-106); POTASSIUM 4.3 mmol/L (3.5-5.1); SGOT/AST 25 U/L (15-37); SGPT/ALT 35 U/L (12-78); SODIUM 141 mmol/L (136-145); TOT PROT 6.9 g/dl (6.4-8.2)
[2017-05-28] MEDS: PRENATAL VITAMINS W/ FOLIC ACID TABLET (FP) PO SCH (10:24)
[2017-05-28] MEDS: PANTOPRAZOLE 40 MG TABLET (FP) PO SCH (10:24)
[2017-05-28] MEDS ORDERED: chlordiazePOXIDE HCL 25 MG CAPSULE PO SCH (17:00)
[2017-05-28 19:54] LABS: URINE APPEARANCE CLEAR; URINE BILIRUBIN NEGATIVE (<2.0 mg/dL); URINE BLOOD NEGATIVE (NEGATIVE); URINE COLOR COLORLESS; URINE GLUCOSE (UA) NEGATIVE (NEGATIVE); URINE KETONE NEGATIVE (NEGATIVE); URINE LEUK ESTERASE NEGATIVE (NEGATIVE); URINE NITRITE NEGATIVE (NEGATIVE); URINE PROTEIN NEGATIVE (NEGATIVE); URINE UROBILINOGEN NEGATIVE mg/dL (0.2-1.0)
[2017-05-28] MEDS: MELATONIN 5 MG TABLETS PO SCH (22:10)
[2017-05-28] MEDS: THIAMINE HCL 100 MG TABLET (FP) PO SCH (22:10)
[2017-05-28] MEDS: MIRTAZAPINE 15 MG TABLET (FP) PO SCH (22:11)
[2017-05-29] MEDS: GABAPENTIN 300 MG CAPSULE (FP) PO SCH ×3 (05:24→22:16)
[2017-05-29] MEDS: diazePAM 5 MG TABLET PO PRN ×3 (05:24→17:58)
[2017-05-29] MEDS: IBUPROFEN 400 MG TABLET (FP) PO PRN ×2 (08:35→17:58)
[2017-05-29] MEDS ORDERED: LIDOCAINE 5% TOPICAL PATCH TP SCH (10:00)
[2017-05-29] MEDS ORDERED: METHADONE HCL 5 MG TABLET (FOR DETOX USE ONLY) PO SCH ×2 (10:00)
[2017-05-29] MEDS: PANTOPRAZOLE 40 MG TABLET (FP) PO SCH (10:21)
[2017-05-29] MEDS: PRENATAL VITAMINS W/ FOLIC ACID TABLET (FP) PO SCH (10:22)
[2017-05-29] MEDS: diazePAM 5 MG TABLET PO SCH ×2 (10:22→22:16)
--- NOTE | 2017-05-29 11:01 | PN ---
S CIWA - CIWA Score Nausea/Vomitin-No Nausea/No Vomiting Muscle Tremors: 4-Moderate,w/Arms Extend Anxiety: 5 Agitation: 4-Moderately Restless Paroxysmal Sweats: 1-Minimal Palms Moist Orientation: 0-Oriented Tacttile Disturbances: 3-Moderate Itch/Numb/Burn Auditory Disturbances: 0-None Visual Disturbances: 0-None Headache: 0-None Present CIWA-Ar Total Score: 17 BHS COWS - Scale Resting Pulse: 0= [place] 80 or Below Sweatin= Chills/Flushing Restless Observation: 3= Extraneous Movement Pupil Size: 2= Moderately Dilated Bone or Joint Aches: 4=Acute Joint/Muscle Pain Runny Nose/ Eye Tearin= Nasal Congestion GI Upset > 30mins: 1= Stomach Cramp Tremor Observation of Outstretched Hands: 1= Tremor [place], Not Seen Yawning Observation: 0= None Anxiety or Irritability: 2=Irritable/Anxious Goose Flesh Skin: 0=Smooth Skin COWS Score: 15 S Progress Note (SOAP) Subjective: IRRITABILITY,RESTLESSNESS,ANXIETY,BACK ACHE/MUSCLE ACHE. Objective: 05/29/17 11:00 Vital Signs Temperature 95.6 F L 05/29/17 09:18 Pulse Rate 79 05/29/17 09:18 Respiratory Rate 16 05/29/17 09:18 Blood Pressure 108/66 05/29/17 09:18 O2 Sat by Pulse Oximetry (%) Laboratory Last Values WBC 4.7 K/mm3 (4.0-10.0) 05/28/17 05:50 RBC 5.08 M/mm3 (4.00-5.60) 05/28/17 05:50 Hgb 13.8 GM/dL (11.7-16.9) 05/28/17 05:50 Hct 41.9 % (35.4-49) 05/28/17 05:50 MCV 82.6 fl (80-96) 05/28/17 05:50 MCH 27.2 pg (25.7-33.7) 05/28/17 05:50 MCHC 32.9 g/dl (32.0-35.9) 05/28/17 05:50 RDW 14.1 % (11.9-15.9) 05/28/17 05:50 Plt Count 207 K/MM3 (134-434) 05/28/17 05:50 MPV 8.8 fl (7.5-11.1) 05/28/17 05:50 Sodium 141 mmol/L (136-145) 05/28/17 05:50 Potassium 4.3 mmol/L (3.5-5.1) 05/28/17 05:50 Chloride 105 mmol/L (98-107) 05/28/17 05:50 Carbon Dioxide 30 mmol/L (21-32) 05/28/17 05:50 Anion Gap 6 (8-16) L 05/28/17 05:50 BUN 15 mg/dL (7-18) 05/28/17 05:50 Creatinine 0.9 mg/dL (0.7-1.3) 05/28/17 05:50 Creat Clearance w eGFR > 60 (>60) 05/28/17 05:50 Random Glucose 68 mg/dL (74-106) L D 05/28/17 05:50 Calcium 8.7 mg/dL (8.5-10.1) 05/28/17 05:50 Total Bilirubin 0.5 mg/dL (0.2-1.0) 05/28/17 05:50 AST 25 U/L (15-37) D 05/28/17 05:50 ALT 35 U/L (12-78) 05/28/17 05:50 Alkaline Phosphatase 65 U/L (45-117) 05/28/17 05:50 Total Protein 6.9 g/dl (6.4-8.2) 05/28/17 05:50 Albumin 3.9 g/dl (3.4-5.0) 05/28/17 05:50 Urine Color Colorless 05/28/17 03:30 Urine Appearance Clear 05/28/17 03:30 Urine pH 7.0 (5.0-8.0) 05/28/17 03:30 Ur Specific [place] 1.005 (1.001-1.035) 05/28/17 03:30 Urine Protein Negative (NEGATIVE) 05/28/17 03:30 Urine Glucose (UA) Negative (NEGATIVE) 05/28/17 03:30 Urine Ketones Negative (NEGATIVE) 05/28/17 03:30 Urine Blood Negative (NEGATIVE) 05/28/17 03:30 Urine Nitrite Negative (NEGATIVE) 05/28/17 03:30 Urine Bilirubin Negative (<2.0 mg/dL) 05/28/17 03:30 Urine Urobilinogen Negative mg/dL (0.2-1.0) 05/28/17 03:30 Ur Leukocyte Esterase Negative (NEGATIVE) 05/28/17 03:30 RPR Titer Nonreactive (NONREACTIVE) 05/28/17 05:50 HIV 1&2 Antibody Screen Negative 05/27/17 12:10 HIV P24 Antigen Negative 05/27/17 12:10 Assessment: 05/29/17 11:00 WITHDRAWAL SX Plan: CONTINUE DETOX
[2017-05-29] MEDS: BACLOFEN 10 MG TABLET (FP) PO SCH ×2 (13:37→22:16)
[2017-05-29] MEDS ORDERED: chlordiazePOXIDE 5 MG CAPSULE PO SCH (17:00)
[2017-05-29] MEDS ORDERED: LIDOCAINE PATCH REMOVAL MC SCH (22:00)
[2017-05-29] MEDS: THIAMINE HCL 100 MG TABLET (FP) PO SCH (22:16)
[2017-05-29] MEDS: MELATONIN 5 MG TABLETS PO SCH (22:16)
[2017-05-29] MEDS: MIRTAZAPINE 15 MG TABLET (FP) PO SCH (22:16)
[2017-05-30] MEDS: diazePAM 5 MG TABLET PO PRN ×2 (02:35→06:48)
[2017-05-30] MEDS: GABAPENTIN 300 MG CAPSULE (FP) PO SCH (06:48)
[2017-05-30] MEDS: BACLOFEN 10 MG TABLET (FP) PO SCH (06:48)
[2017-05-30 09:31] VITALS: BP 126/79; PULSE 86; TEMP 97.3
[2017-05-30] MEDS ORDERED: METHADONE HCL 10 MG TABLET (FOR DETOX USE ONLY) PO SCH (10:00)
--- NOTE | 2017-05-30 10:56 | PN ---
S Progress Note (SOAP) Subjective: PT DECLINED TO COMPLETE DETOX AND WANTS TO SIGN OUT TODAY. ALERT O X 3. Objective: 05/30/17 10:55 Vital Signs Temperature 97.3 F L 05/30/17 09:29 Pulse Rate 86 05/30/17 09:29 Respiratory Rate 18 05/30/17 09:29 Blood Pressure 126/79 05/30/17 09:29 O2 Sat by Pulse Oximetry (%) Laboratory Last Values WBC 4.7 K/mm3 (4.0-10.0) 05/28/17 05:50 RBC 5.08 M/mm3 (4.00-5.60) 05/28/17 05:50 Hgb 13.8 GM/dL (11.7-16.9) 05/28/17 05:50 Hct 41.9 % (35.4-49) 05/28/17 05:50 MCV 82.6 fl (80-96) 05/28/17 05:50 MCH 27.2 pg (25.7-33.7) 05/28/17 05:50 MCHC 32.9 g/dl (32.0-35.9) 05/28/17 05:50 RDW 14.1 % (11.9-15.9) 05/28/17 05:50 Plt Count 207 K/MM3 (134-434) 05/28/17 05:50 MPV 8.8 fl (7.5-11.1) 05/28/17 05:50 Sodium 141 mmol/L (136-145) 05/28/17 05:50 Potassium 4.3 mmol/L (3.5-5.1) 05/28/17 05:50 Chloride 105 mmol/L (98-107) 05/28/17 05:50 Carbon Dioxide 30 mmol/L (21-32) 05/28/17 05:50 Anion Gap 6 (8-16) L 05/28/17 05:50 BUN 15 mg/dL (7-18) 05/28/17 05:50 Creatinine 0.9 mg/dL (0.7-1.3) 05/28/17 05:50 Creat Clearance w eGFR > 60 (>60) 05/28/17 05:50 Random Glucose 68 mg/dL (74-106) L D 05/28/17 05:50 Calcium 8.7 mg/dL (8.5-10.1) 05/28/17 05:50 Total Bilirubin 0.5 mg/dL (0.2-1.0) 05/28/17 05:50 AST 25 U/L (15-37) D 05/28/17 05:50 ALT 35 U/L (12-78) 05/28/17 05:50 Alkaline Phosphatase 65 U/L (45-117) 05/28/17 05:50 Total Protein 6.9 g/dl (6.4-8.2) 05/28/17 05:50 Albumin 3.9 g/dl (3.4-5.0) 05/28/17 05:50 Urine Color Colorless 05/28/17 03:30 Urine Appearance Clear 05/28/17 03:30 Urine pH 7.0 (5.0-8.0) 05/28/17 03:30 Ur Specific [place] 1.005 (1.001-1.035) 05/28/17 03:30 Urine Protein Negative (NEGATIVE) 05/28/17 03:30 Urine Glucose (UA) Negative (NEGATIVE) 05/28/17 03:30 Urine Ketones Negative (NEGATIVE) 05/28/17 03:30 Urine Blood Negative (NEGATIVE) 05/28/17 03:30 Urine Nitrite Negative (NEGATIVE) 05/28/17 03:30 Urine Bilirubin Negative (<2.0 mg/dL) 05/28/17 03:30 Urine Urobilinogen Negative mg/dL (0.2-1.0) 05/28/17 03:30 Ur Leukocyte Esterase Negative (NEGATIVE) 05/28/17 03:30 RPR Titer Nonreactive (NONREACTIVE) 05/28/17 05:50 HIV 1&2 Antibody Screen Negative 05/27/17 12:10 HIV P24 Antigen Negative 05/27/17 12:10 Assessment: 05/30/17 10:56 NAD Plan: PT SIGNED OUT AMA
--- NOTE | 2017-05-30 11:00 | DS ---
[facility] Detox Discharge Summary Admission Date: 05/27/17 Discharge Date: 05/30/17 - History Present History: Opioid Dependence, Sedative Dependence Additional Comments: PT DECLINED TO CONTINUE WITH DETOX. ALERT O X 3. NAD. Pertinent Past History: ASTHMA GERD ANEMIA HX BACK PAIN - Physical Exam Results Vital Signs: Vital Signs Temperature 97.3 F L 05/30/17 09:29 Pulse Rate 86 05/30/17 09:29 Respiratory Rate 18 05/30/17 09:29 Blood Pressure 126/79 05/30/17 09:29 O2 Sat by Pulse Oximetry (%) Pertinent Admission Physical Exam Findings: WITHDRAWAL SX Laboratory Last Values WBC 4.7 K/mm3 (4.0-10.0) 05/28/17 05:50 RBC 5.08 M/mm3 (4.00-5.60) 05/28/17 05:50 Hgb 13.8 GM/dL (11.7-16.9) 05/28/17 05:50 Hct 41.9 % (35.4-49) 05/28/17 05:50 MCV 82.6 fl (80-96) 05/28/17 05:50 MCH 27.2 pg (25.7-33.7) 05/28/17 05:50 MCHC 32.9 g/dl (32.0-35.9) 05/28/17 05:50 RDW 14.1 % (11.9-15.9) 05/28/17 05:50 Plt Count 207 K/MM3 (134-434) 05/28/17 05:50 MPV 8.8 fl (7.5-11.1) 05/28/17 05:50 Sodium 141 mmol/L (136-145) 05/28/17 05:50 Potassium 4.3 mmol/L (3.5-5.1) 05/28/17 05:50 Chloride 105 mmol/L (98-107) 05/28/17 05:50 Carbon Dioxide 30 mmol/L (21-32) 05/28/17 05:50 Anion Gap 6 (8-16) L 05/28/17 05:50 BUN 15 mg/dL (7-18) 05/28/17 05:50 Creatinine 0.9 mg/dL (0.7-1.3) 05/28/17 05:50 Creat Clearance w eGFR > 60 (>60) 05/28/17 05:50 Random Glucose 68 mg/dL (74-106) L D 05/28/17 05:50 Calcium 8.7 mg/dL (8.5-10.1) 05/28/17 05:50 Total Bilirubin 0.5 mg/dL (0.2-1.0) 05/28/17 05:50 AST 25 U/L (15-37) D 05/28/17 05:50 ALT 35 U/L (12-78) 05/28/17 05:50 Alkaline Phosphatase 65 U/L (45-117) 05/28/17 05:50 Total Protein 6.9 g/dl (6.4-8.2) 05/28/17 05:50 Albumin 3.9 g/dl (3.4-5.0) 05/28/17 05:50 Urine Color Colorless 05/28/17 03:30 Urine Appearance Clear 05/28/17 03:30 Urine pH 7.0 (5.0-8.0) 05/28/17 03:30 Ur Specific [place] 1.005 (1.001-1.035) 05/28/17 03:30 Urine Protein Negative (NEGATIVE) 05/28/17 03:30 Urine Glucose (UA) Negative (NEGATIVE) 05/28/17 03:30 Urine Ketones Negative (NEGATIVE) 05/28/17 03:30 Urine Blood Negative (NEGATIVE) 05/28/17 03:30 Urine Nitrite Negative (NEGATIVE) 05/28/17 03:30 Urine Bilirubin Negative (<2.0 mg/dL) 05/28/17 03:30 Urine Urobilinogen Negative mg/dL (0.2-1.0) 05/28/17 03:30 Ur Leukocyte Esterase Negative (NEGATIVE) 05/28/17 03:30 RPR Titer Nonreactive (NONREACTIVE) 05/28/17 05:50 HIV 1&2 Antibody Screen Negative 05/27/17 12:10 HIV P24 Antigen Negative 05/27/17 12:10 - Treatment Hospital Course: Discharged Condition Good - Medication Discharge Medications: Ambulatory Orders Montelukast Na [Singulair -] 10 mg PO HS 11/08/11 Albuterol Sulfate Inhaler - [Ventolin HFA Inhaler -] 2 inh PO Q4H PRN 01/19/14 Gabapentin [Neurontin -] 800 mg PO Q8H 01/19/14 Omeprazole [Prilosec] 20 mg PO DAILY 07/27/15 Bupropion HCl [Wellbutrin Xl -] 150 mg PO DAILY #30 tab.sr.24h 05/29/17 Mirtazapine [Remeron -] 15 mg PO HS #30 tablet 05/29/17 - Diagnosis (1) Nicotine dependence Current Visit: Yes Status: Acute Qualifiers: Nicotine product type: cigarettes Substance use status: in withdrawal Qualified Code(s): F17.213 - Nicotine dependence, cigarettes, with withdrawal (2) Opioid dependence with withdrawal Current Visit: Yes Status: Acute (3) Sedative, hypnotic or anxiolytic dependence with withdrawal, uncomplicated Current Visit: Yes Status: Acute (4) Asthma Current Visit: Yes Status: Chronic (5) Gastroesophageal reflux disease Current Visit: Yes Status: Chronic (6) History of anemia Current Visit: Yes Status: Suspected (7) Back pain Current Visit: Yes Status: Chronic Qualifiers: Back pain laterality: midline - AMA Did Patient Leave Against Medical Advice: Yes (AMA)
[2017-05-30] MEDS ORDERED: chlordiazePOXIDE HCL 10 MG CAPSULE PO SCH (17:00)
[2017-05-31] MEDS ORDERED: METHADONE HCL 5 MG TABLET (FOR DETOX USE ONLY) PO SCH (06:00)
[2017-05-31] MEDS ORDERED: diazePAM 5 MG TABLET PO SCH (10:00)
[2017-05-31] MEDS ORDERED: METHADONE HCL 10 MG TABLET (FOR DETOX USE ONLY) PO SCH ×2 (10:00)
[2017-06-01] MEDS ORDERED: METHADONE HCL 5 MG TABLET (FOR DETOX USE ONLY) PO SCH ×2 (06:00)
== END 2017-05-30 09:10 | disposition left against medical advice (07) | DRG 770 ==
LOC: YASAS 08:22 → Y3N 12:50
PROVIDERS: ADMIT Internal Medicine; ATTEND Internal Medicine
PROC: HZ2ZZZZ Detoxification Services for Substance Abuse Treatment (ICD-10-PCS; principal; 2017-05-27)
DX: F11.23 Opioid dependence with withdrawal (principal); F13.230 Sedative, hypnotic or anxiolytic dependence with withdrawal, uncomplicated; F17.210 Nicotine dependence, cigarettes, uncomplicated; K21.9 Gastro-esophageal reflux disease without esophagitis; J45.909 Unspecified asthma, uncomplicated; M54.5 Low back pain; F33.9 Major depressive disorder, recurrent, unspecified; G47.00 Insomnia, unspecified; Z86.2 Personal history of diseases of the blood and blood-forming organs and certain disorders involving the immune mechanism
CPT/HCPCS: 36415; 80053; 81003; 85027; 86593; 87389; 93005; 93010; J0475

== ENCOUNTER 2018-03-04 07:57 | Inpatient (IN) | payer OTHER ==
[2018-03-04 08:47] VITALS: BMI 23.8
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
[2018-03-04] MEDS ORDERED: LOPERAMIDE HCL 2 MG CAPSULE PO PRN (09:14)
[2018-03-04] MEDS ORDERED: guaiFENesin/D-METHORPHAN HB 10 ML UNIT-DOSE CUPS PO PRN (09:14)
[2018-03-04] MEDS ORDERED: MAGNESIUM HYDROX 2400MG/30ML ORAL SUSPENSION 30 ML CUP PO PRN (09:14)
[2018-03-04] MEDS ORDERED: MAGNESIUM CITRATE 300 ML BOTTLE PO PRN (09:14)
[2018-03-04] MEDS ORDERED: MAG HYDROX/AL HYDROX/SIMETH 30 ML UNIT-DOSE CUP PO PRN (09:14)
[2018-03-04] MEDS ORDERED: IBUPROFEN 400 MG TABLET (FP) PO PRN (09:14)
[2018-03-04] MEDS ORDERED: ACETAMINOPHEN 325 MG TABLET (FP) PO PRN (09:14)
[2018-03-04] MEDS ORDERED: P-EPHED 60MG/TRIPROLIDI 2.5MG TABLET PO PRN (09:14)
[2018-03-04] MEDS ORDERED: MENTHOL/PHENOL 1 EACH UD MM PRN (09:14)
[2018-03-04] MEDS ORDERED: ALBUTEROL SO4 8 GM HFA INHALER IH PRN (09:25)
[2018-03-04] MEDS ORDERED: METHADONE HCL 10 MG TABLET (FOR DETOX USE ONLY) PO ONE ×2 (09:45→23:00)
[2018-03-04] MEDS ORDERED: diazePAM 5 MG TABLET PO ONE (09:45)
[2018-03-04] MEDS: CYCLOBENZAPRINE HCL 10 MG TABLET (FP) PO PRN (10:37)
[2018-03-04] MEDS: PRENATAL VITAMINS W/ FOLIC ACID TABLET (FP) PO SCH (10:38)
[2018-03-04] MEDS: PANTOPRAZOLE 20 MG TABLET (FP) PO SCH (10:39)
--- NOTE | 2018-03-04 13:54 | CONSULT ---
[facility] Psychiatric Consult - Data Date of interview: 03/04/18 Admission source: [facility] Identifying data: Patient is a 42 year old single (common law), without children , domiciled, unemployed, and is supported by [facility]. This is one of multiple admissions for patient. Patient admitted to for opiate dependence. Substance Abuse History: Smoking Cessation. Smoking history: Current every day smoker. Have you smoked in the past 12 months: Yes. Aproximately how many cigarettes per day: 4. Cigars Per Day: 0. Hx Chewing Tobacco Use: No. Initiated information on smoking cessation: Yes. 'Breaking Loose' booklet given : 03/04/18. - Substance & Tx. History. Hx Alcohol Use: No. Hx Substance Use: Yes. Substance Use Type: Cocaine, Heroin, Tranquilizers. Hx Substance Use Treatment: Yes ([facility] 05/27/17 to 05/30/17). - Substances Abused. Heroin. Route: Injection. Frequency: Daily. Amount used: 5 bags. Age of first use: 17. Date of Last Use: 03/04/18. Cocaine. Route: Inhalation. Frequency: 1- 3 times last 30 days. Amount used: 10$. Age of first use: 15. Date of Last Use: 03/04/18. Alprazolam (Xanax). Route: Oral. Frequency: 3-6 times per week. Amount used: 4 mgs. Age of first use: 17. Date of Last Use: 03/03/18 Medical History: Anemia, asthma, Hep C Psychiatric History: Patient reports multiple psychiatric hospitalizations, most recently in 2007 at [facility] in [place] after relapsing and reporting amotivation, worthlessness, and hopeleessness. He is also known to facilites in [place] and [place]. Outpatient psychiatric care was provided in [place], [place]. States he was prescribed remeron 30mg HS + Ambien 10mg + Wellbutrin 150mg Xl + Klonopin 2mg daily. Last accepted psychotrophic medication two months ago. Patient with h/o medication noncompliance. Patient reports h/o suicide attempts approximately 10-15 years ago via overdose on pills. At present, he reports stable mood. Physical/Sexual Abuse/Trauma History: Denies. Mental Status Exam - Mental Status Exam Alert and Oriented to: Time, Place, Person Cognitive Function: Good Patient Appearance: Well Groomed Mood: Euthymic Affect: Mood Congruent Patient Behavior: Appropriate, Cooperative Speech Pattern: Clear (Mainly luxembourgish speaking. ), Appropriate Voice Loudness: Normal Thought Process: Intact, Goal Oriented Thought Disorder: Not Present Hallucinations: Denies Suicidal Ideation: Denies Homicidal Ideation: Denies Insight/Judgement: Poor Sleep: Poorly Appetite: Fair Muscle strength/Tone: Normal Gait/Station: Normal Psychiatric Findings - Problem List (Moffat 1, 2,3) (1) Opioid dependence with withdrawal Current Visit: Yes Status: Acute (2) Substance induced mood disorder Current Visit: Yes Status: Acute (3) Substance-induced sleep disorder Current Visit: Yes Status: Acute (4) Sedative hypnotic or anxiolytic dependence Current Visit: Yes Status: Chronic (5) Cocaine dependence Current Visit: Yes Status: Chronic - Initial Treatment Plan Initial Treatment Plan: Psychoeducation provided. Detoxification in progress. Will order Mirtzapine 15mg qhs. Benefits and side effects discussed. Verbal consent given.
[2018-03-04] MEDS: diazePAM 5 MG TABLET PO SCH ×2 (14:03→22:09)
[2018-03-04] MEDS: diazePAM 5 MG TABLET PO PRN (18:18)
[2018-03-04] MEDS ORDERED: MELATONIN 5 MG TABLETS PO PRN (22:00)
[2018-03-04] MEDS: THIAMINE HCL 100 MG TABLET (FP) PO SCH (22:08)
[2018-03-04] MEDS: MIRTAZAPINE 15 MG TABLET (FP) PO SCH (22:08)
[2018-03-05] MEDS: diazePAM 5 MG TABLET PO SCH ×3 (05:01→22:03)
[2018-03-05] MEDS ORDERED: METHADONE HCL 10 MG TABLET (FOR DETOX USE ONLY) PO SCH (10:00)
[2018-03-05 10:02] LABS: PLATELET COUNT 183 K/MM3 (134-434); RBC 4.52 M/mm3 (4.00-5.60); RDW 13.2 % (11.9-15.9); WHITE BLOOD COUNT 3.7 K/mm3 (4.0-10.0)
[2018-03-05 10:06] LABS: HEMATOCRIT 36.8 % (35.4-49); HEMOGLOBIN 12.8 GM/dL (11.7-16.9); MCH 28.3 pg (25.7-33.7); MCHC 34.8 g/dl (32.0-35.9); MEAN CELL VOLUME 81.4 fl (80-96); MEAN PLT VOLUME 8.4 fl (7.5-11.1)
[2018-03-05] MEDS: PRENATAL VITAMINS W/ FOLIC ACID TABLET (FP) PO SCH (10:07)
[2018-03-05] MEDS: PANTOPRAZOLE 20 MG TABLET (FP) PO SCH (10:07)
[2018-03-05] MEDS: CYCLOBENZAPRINE HCL 10 MG TABLET (FP) PO PRN ×2 (10:09→22:03)
[2018-03-05] MEDS: diazePAM 5 MG TABLET PO PRN ×2 (10:22→17:49)
--- NOTE | 2018-03-05 10:32 | PN ---
[facility] CIWA - CIWA Score Nausea/Vomitin-No Nausea/No Vomiting Muscle Tremors: 4-Moderate,w/Arms Extend Anxiety: 4-Mod. Anxious/Guarded Agitation: 2 Paroxysmal Sweats: 1-Minimal Palms Moist Orientation: 1-Uncertain about Date Tacttile Disturbances: 0-None Auditory Disturbances: 0-None Visual Disturbances: 0-None Headache: 0-None Present CIWA-Ar Total Score: 12 S COWS - Scale Resting Pulse: 0= ID 80 or Below Sweatin= Chills/Flushing Restless Observation: 1= Difficult to Sit Still Pupil Size: 0= Normal to Room Light Bone or Joint Aches: 2= Severe Diffuse Aches Runny Nose/ Eye Tearin= Nasal Congestion GI Upset > 30mins: 2= Nausea/Diarrhea Tremor Observation of Outstretched Hands: 2= Slight Tremor Visible Yawning Observation: 1= 1-2x During Session Anxiety or Irritability: 2=Irritable/Anxious Goose Flesh Skin: 0=Smooth Skin COWS Score: 12 [facility] Progress Note (SOAP) Subjective: body ache joints pain muscle cramping sweat tremor Objective: 03/05/18 12:03 Vital Signs Temperature 98.4 F 03/05/18 10:49 Pulse Rate 76 03/05/18 10:49 Respiratory Rate 18 03/05/18 10:49 Blood Pressure 115/71 03/05/18 10:49 O2 Sat by Pulse Oximetry (%) Laboratory Last Values WBC 3.7 K/mm3 (4.0-10.0) L 03/05/18 08:00 RBC 4.52 M/mm3 (4.00-5.60) 03/05/18 08:00 Hgb 12.8 GM/dL (11.7-16.9) 03/05/18 08:00 Hct 36.8 % (35.4-49) 03/05/18 08:00 MCV 81.4 fl (80-96) 03/05/18 08:00 MCH 28.3 pg (25.7-33.7) 03/05/18 08:00 MCHC 34.8 g/dl (32.0-35.9) 03/05/18 08:00 RDW 13.2 % (11.9-15.9) 03/05/18 08:00 Plt Count 183 K/MM3 (134-434) 03/05/18 08:00 MPV 8.4 fl (7.5-11.1) 03/05/18 08:00 Sodium 141 mmol/L (136-145) 03/05/18 08:00 Potassium 4.0 mmol/L (3.5-5.1) 03/05/18 08:00 Chloride 106 mmol/L (98-107) 03/05/18 08:00 Carbon Dioxide 29 mmol/L (21-32) 03/05/18 08:00 Anion Gap 6 MMOL/L (8-16) L 03/05/18 08:00 BUN 10 mg/dL (7-18) 03/05/18 08:00 Creatinine 0.7 mg/dL (0.55-1.3) 03/05/18 08:00 Creat Clearance w eGFR > 60 (>60) 03/05/18 08:00 Random Glucose 82 mg/dL (74-106) 03/05/18 08:00 Calcium 8.4 mg/dL (8.5-10.1) L 03/05/18 08:00 Total Bilirubin 0.4 mg/dL (0.2-1) 03/05/18 08:00 AST 28 U/L (15-37) 03/05/18 08:00 ALT 32 U/L (13-61) 03/05/18 08:00 Alkaline Phosphatase 75 U/L (45-117) 03/05/18 08:00 Total Protein 6.2 g/dl (6.4-8.2) L 03/05/18 08:00 Albumin 3.3 g/dl (3.4-5.0) L 03/05/18 08:00 RPR Titer Nonreactive (NONREACTIVE) 03/05/18 08:00 HIV 1&2 Antibody Screen Negative 03/05/18 08:00 HIV P24 Antigen Negative 03/05/18 08:00 lab noted Assessment: 03/05/18 12:03 withdrawal sx Plan: continue detox
[2018-03-05 11:31] LABS: ALBUMIN 3.3 g/dl (3.4-5.0); ALK PHOS 75 U/L (45-117); ANION GAP 6 MMOL/L (8-16); BILIRUBIN,TOTAL 0.4 mg/dL (0.2-1); BLOOD UREA NITROGEN 10 mg/dL (7-18); CALCIUM 8.4 mg/dL (8.5-10.1); CHLORIDE 106 mmol/L (98-107); CO2 29 mmol/L (21-32); CREATININE 0.7 mg/dL (0.55-1.3); GLUCOSE,RANDOM 82 mg/dL (74-106); SGOT/AST 28 U/L (15-37); SGPT/ALT 32 U/L (13-61); SODIUM 141 mmol/L (136-145); TOT PROT 6.2 g/dl (6.4-8.2)
[2018-03-05] MEDS ORDERED: RANITIDINE HCL 150 MG TABLET (FP) PO SCH (12:15)
[2018-03-05] MEDS: THIAMINE HCL 100 MG TABLET (FP) PO SCH (22:02)
[2018-03-05] MEDS: MIRTAZAPINE 15 MG TABLET (FP) PO SCH (22:03)
[2018-03-06] MEDS: diazePAM 5 MG TABLET PO PRN ×2 (02:29→13:53)
[2018-03-06] MEDS: PANTOPRAZOLE 20 MG TABLET (FP) PO SCH (09:12)
[2018-03-06] MEDS: PRENATAL VITAMINS W/ FOLIC ACID TABLET (FP) PO SCH (09:12)
[2018-03-06] MEDS ORDERED: diazePAM 5 MG TABLET PO SCH (10:00)
[2018-03-06] MEDS ORDERED: METHADONE HCL 5 MG TABLET (FOR DETOX USE ONLY) PO SCH (10:00)
--- NOTE | 2018-03-06 10:48 | PN ---
[facility] CIWA - CIWA Score Nausea/Vomitin-No Nausea/No Vomiting Muscle Tremors: 3 Anxiety: 2 Agitation: 2 Paroxysmal Sweats: 1-Minimal Palms Moist Orientation: 0-Oriented Tacttile Disturbances: 0-None Auditory Disturbances: 0-None Visual Disturbances: 0-None Headache: 2-Mild CIWA-Ar Total Score: 10 [facility] COWS - Scale Resting Pulse: 0= [place] 80 or Below Sweatin= Chills/Flushing Restless Observation: 0= Sits Still Pupil Size: 0= Normal to Room Light Bone or Joint Aches: 1= Mild Discomfort Runny Nose/ Eye Tearin= Nasal Congestion GI Upset > 30mins: 1= Stomach Cramp Tremor Observation of Outstretched Hands: 2= Slight Tremor Visible Yawning Observation: 2= >3x During Session Anxiety or Irritability: 2=Irritable/Anxious Goose Flesh Skin: 0=Smooth Skin COWS Score: 10 S Progress Note (SOAP) Subjective: tremor body aches sweat anxiety restlessness Objective: 03/06/18 10:46 Vital Signs Temperature 97.4 F L 03/06/18 09:06 Pulse Rate 62 03/06/18 09:06 Respiratory Rate 18 03/06/18 09:06 Blood Pressure 109/71 03/06/18 09:06 O2 Sat by Pulse Oximetry (%) Laboratory Last Values WBC 3.7 K/mm3 (4.0-10.0) L 03/05/18 08:00 RBC 4.52 M/mm3 (4.00-5.60) 03/05/18 08:00 Hgb 12.8 GM/dL (11.7-16.9) 03/05/18 08:00 Hct 36.8 % (35.4-49) 03/05/18 08:00 MCV 81.4 fl (80-96) 03/05/18 08:00 MCH 28.3 pg (25.7-33.7) 03/05/18 08:00 MCHC 34.8 g/dl (32.0-35.9) 03/05/18 08:00 RDW 13.2 % (11.9-15.9) 03/05/18 08:00 Plt Count 183 K/MM3 (134-434) 03/05/18 08:00 MPV 8.4 fl (7.5-11.1) 03/05/18 08:00 Sodium 141 mmol/L (136-145) 03/05/18 08:00 Potassium 4.0 mmol/L (3.5-5.1) 03/05/18 08:00 Chloride 106 mmol/L (98-107) 03/05/18 08:00 Carbon Dioxide 29 mmol/L (21-32) 03/05/18 08:00 Anion Gap 6 MMOL/L (8-16) L 03/05/18 08:00 BUN 10 mg/dL (7-18) 03/05/18 08:00 Creatinine 0.7 mg/dL (0.55-1.3) 03/05/18 08:00 Creat Clearance w eGFR > 60 (>60) 03/05/18 08:00 Random Glucose 82 mg/dL (74-106) 03/05/18 08:00 Calcium 8.4 mg/dL (8.5-10.1) L 03/05/18 08:00 Total Bilirubin 0.4 mg/dL (0.2-1) 03/05/18 08:00 AST 28 U/L (15-37) 03/05/18 08:00 ALT 32 U/L (13-61) 03/05/18 08:00 Alkaline Phosphatase 75 U/L (45-117) 03/05/18 08:00 Total Protein 6.2 g/dl (6.4-8.2) L 03/05/18 08:00 Albumin 3.3 g/dl (3.4-5.0) L 03/05/18 08:00 RPR Titer Nonreactive (NONREACTIVE) 03/05/18 08:00 HIV 1&2 Antibody Screen Negative 03/05/18 08:00 HIV P24 Antigen Negative 03/05/18 08:00 lab noted Assessment: 03/06/18 10:47 withdrawal sx Plan: continue detox
[2018-03-06 13:38] VITALS: BP 104/59; PULSE 77; TEMP 97.9
[2018-03-06] MEDS: CYCLOBENZAPRINE HCL 10 MG TABLET (FP) PO PRN (13:53)
--- NOTE | 2018-03-06 16:28 | DS ---
[facility] Detox Discharge Summary Admission Date: 03/04/18 Discharge Date: 03/06/18 - History Present History: Opioid Dependence, Sedative Dependence Additional Comments: 42 years old male admited on 03/04/18 for benzo and opiate withdrawal stabilization insists to leave the detox unit without apparent reason patient is alert no acute distress denies suicidal denies homocidal no self destructive behavior aftercare [facility] negative consequences of mix benzo and opiate misuse and possible fatality - Physical Exam Results Vital Signs: Vital Signs Temperature 97.9 F 03/06/18 13:37 Pulse Rate 77 03/06/18 13:37 Respiratory Rate 18 03/06/18 13:37 Blood Pressure 104/59 L 03/06/18 13:37 O2 Sat by Pulse Oximetry (%) Pertinent Admission Physical Exam Findings: benzo and opiate withdrawal sx Vital Signs Temperature 97.9 F 03/06/18 13:37 Pulse Rate 77 03/06/18 13:37 Respiratory Rate 18 03/06/18 13:37 Blood Pressure 104/59 L 03/06/18 13:37 O2 Sat by Pulse Oximetry (%) Laboratory Last Values WBC 3.7 K/mm3 (4.0-10.0) L 03/05/18 08:00 RBC 4.52 M/mm3 (4.00-5.60) 03/05/18 08:00 Hgb 12.8 GM/dL (11.7-16.9) 03/05/18 08:00 Hct 36.8 % (35.4-49) 03/05/18 08:00 MCV 81.4 fl (80-96) 03/05/18 08:00 MCH 28.3 pg (25.7-33.7) 03/05/18 08:00 MCHC 34.8 g/dl (32.0-35.9) 03/05/18 08:00 RDW 13.2 % (11.9-15.9) 03/05/18 08:00 Plt Count 183 K/MM3 (134-434) 03/05/18 08:00 MPV 8.4 fl (7.5-11.1) 03/05/18 08:00 Sodium 141 mmol/L (136-145) 03/05/18 08:00 Potassium 4.0 mmol/L (3.5-5.1) 03/05/18 08:00 Chloride 106 mmol/L (98-107) 03/05/18 08:00 Carbon Dioxide 29 mmol/L (21-32) 03/05/18 08:00 Anion Gap 6 MMOL/L (8-16) L 03/05/18 08:00 BUN 10 mg/dL (7-18) 03/05/18 08:00 Creatinine 0.7 mg/dL (0.55-1.3) 03/05/18 08:00 Creat Clearance w eGFR > 60 (>60) 03/05/18 08:00 Random Glucose 82 mg/dL (74-106) 03/05/18 08:00 Calcium 8.4 mg/dL (8.5-10.1) L 03/05/18 08:00 Total Bilirubin 0.4 mg/dL (0.2-1) 03/05/18 08:00 AST 28 U/L (15-37) 03/05/18 08:00 ALT 32 U/L (13-61) 03/05/18 08:00 Alkaline Phosphatase 75 U/L (45-117) 03/05/18 08:00 Total Protein 6.2 g/dl (6.4-8.2) L 03/05/18 08:00 Albumin 3.3 g/dl (3.4-5.0) L 03/05/18 08:00 RPR Titer Nonreactive (NONREACTIVE) 03/05/18 08:00 HIV 1&2 Antibody Screen Negative 03/05/18 08:00 HIV P24 Antigen Negative 03/05/18 08:00 lab notedf - Treatment Hospital Course: Detox Protocol Followed, Responded well Patient has Accepted a Rehab Referral to: self help community services - Medication Discharge Medications: Ambulatory Orders Albuterol Sulfate Inhaler - [Ventolin HFA Inhaler -] 2 inh PO Q4H PRN 01/19/14 Gabapentin [Neurontin -] 800 mg PO BID 01/19/14 Omeprazole [Prilosec] 20 mg PO DAILY 07/27/15 Bupropion HCl [Wellbutrin Xl -] 150 mg PO DAILY #30 tab.sr.24h 05/29/17 Mirtazapine [Remeron -] 15 mg PO HS #30 tablet 05/29/17 Cyclobenzaprine HCl [Flexeril 10 mg] 10 mg PO DAILY 03/04/18 Oxycodone HCl/Acetaminophen [Endocet 10-325 mg Tablet] 1 tab PO TID 03/04/18 - Diagnosis (1) Opioid dependence with withdrawal Current Visit: Yes Status: Acute (2) Substance induced mood disorder Current Visit: Yes Status: Suspected (3) Nicotine dependence Current Visit: Yes Status: Acute Qualifiers: Nicotine product type: cigarettes Substance use status: in withdrawal Qualified Code(s): F17.213 - Nicotine dependence, cigarettes, with withdrawal (4) Sedative, hypnotic or anxiolytic dependence with withdrawal, uncomplicated Current Visit: Yes Status: Acute (5) Asthma Current Visit: Yes Status: Chronic - AMA Did Patient Leave Against Medical Advice: Yes
[2018-03-06 17:19] LABS: URINE APPEARANCE CLEAR; URINE BILIRUBIN NEGATIVE (<2.0 mg/dL); URINE COLOR LTYELLOW; URINE GLUCOSE (UA) NEGATIVE (NEGATIVE); URINE KETONE NEGATIVE (NEGATIVE); URINE LEUK ESTERASE NEGATIVE (NEGATIVE); URINE NITRITE NEGATIVE (NEGATIVE); URINE PROTEIN NEGATIVE (NEGATIVE); URINE UROBILINOGEN NEGATIVE mg/dL (0.2-1.0)
[2018-03-08] MEDS ORDERED: METHADONE HCL 10 MG TABLET (FOR DETOX USE ONLY) PO SCH (10:00)
[2018-03-08] MEDS ORDERED: diazePAM 5 MG TABLET PO SCH (10:00)
[2018-03-09] MEDS ORDERED: METHADONE HCL 5 MG TABLET (FOR DETOX USE ONLY) PO SCH (06:00)
== END 2018-03-06 16:41 | disposition left against medical advice (07) | DRG 770 ==
LOC: YASAS 07:57 → Y3N 09:13
PROC: HZ2ZZZZ Detoxification Services for Substance Abuse Treatment (ICD-10-PCS; principal; 2018-03-04)
DX: F11.23 Opioid dependence with withdrawal (principal); F13.230 Sedative, hypnotic or anxiolytic dependence with withdrawal, uncomplicated; F14.20 Cocaine dependence, uncomplicated; F17.213 Nicotine dependence, cigarettes, with withdrawal; F19.24 Other psychoactive substance dependence with psychoactive substance-induced mood disorder; F19.282 Other psychoactive substance dependence with psychoactive substance-induced sleep disorder; F31.9 Bipolar disorder, unspecified; J45.909 Unspecified asthma, uncomplicated; M54.5 Low back pain; G62.9 Polyneuropathy, unspecified; K21.9 Gastro-esophageal reflux disease without esophagitis; Z88.0 Allergy status to penicillin; Z91.5 Personal history of self-harm
CPT/HCPCS: 36415; 80053; 81003; 85027; 86593; 87389

== ENCOUNTER 2018-04-19 14:34 | Inpatient (IN) | payer OTHER ==
[2018-04-19 15:10] VITALS: BMI 21.4
--- NOTE | 2018-04-19 15:35 | HP ---
COWS - Scale Resting Pulse: 1= [place] 81-100 Sweatin= Chills/Flushing Restless Observation: 1= Difficult to Sit Still Pupil Size: 1= Pupils >than Normal Bone or Joint Aches: 2= Severe Diffuse Aches Runny Nose/ Eye Tearin= Runny Nose/Eyes GI Upset > 30mins: 2= Nausea/Diarrhea Tremor Observation: 2= Slight Tremor Visible Yawning Observation: 1= 1-2x During Session Anxiety or Irritability: 2=Irritable/Anxious Goose Flesh Skin: 0=Smooth Skin COWS Score: 15 CIWA Score - Admission Criteria OASAS Guidelines: Admission for Medically Managed Detox: Requires at least one of the followin. CIWA greater than 12 2. Seizures within the past 24 hours 3. Delirium tremens within the past 24 hours 4. Hallucinations within the past 24 hours 5. Acute intervention needed for co occurring medical disorder 6. Acute intervention needed for co occurring psychiatric disorder 7. Severe withdrawal that cannot be handled at a lower level of care (continued vomiting, continued diarrhea, abnormal vital signs) requiring intravenous medication and/or fluids 8. Admission ROS S - HPI Chief Complaint: i need help to stop using heroin and cocaine Allergies/Adverse Reactions: Allergies Allergy/AdvReac Type Severity Reaction Status Date / Time penicillin G Allergy Severe Rash Verified 04/19/18 16:30 History of Present Illness: this 42 years old mal eiwht heroin and cocaine dependence seeking detox, withdrawal symptom,last detox [facility] 03/04/18 to 03/06/18 not completed hepatitis c not treated nicotine dependence weight loss bipolar disorder multiple admissions in detox but keep relapsing longest perid of sobriety plan for rehab after detox Exam Limitations: No Limitations - Ebola screening Have you traveled outside of the country in the last 21 days: No (N) Have you had contact with anyone from an Ebola affected area: No Have you been sick,other than usual withdrawal symptoms: No Do you have a fever: No - Review of Systems Constitutional: Chills, Loss of Appetite, Malaise, Night Sweats, Changes in sleep, Weakness, Unintentional Wgt. Loss EENT: reports: Tearing, Nose Congestion Respiratory: reports: No Symptoms reported Cardiac: reports: No Symptoms Reported GI: reports: Nausea, Vomiting, Abdominal cramping : reports: No Symptoms Reported Musculoskeletal: reports: Back Pain, Joint Pain, Muscle Pain, Joint Stiffness Integumentary: reports: Dryness Neuro: reports: Headache, Tremors Endocrine: reports: No Symptoms Reported Hematology: reports: No Symptoms Reported Psychiatric: reports: No Sypmtoms Reported, Judgement Intact, Mood/Affect Appropiate, Orientated x3, other (bipolar disorder) Other Systems: Reviewed and Negative Patient History - Patient Medical History Hx Anemia: Yes (no med) Hx Asthma: Yes (on albuterol inhaler) Hx Chronic Obstructive Pulmonary Disease (COPD): No Hx Cancer: No Hx Cardiac Disorders: No Hx Congestive Heart Failure: No Hx Hypertension: No Hx Hypercholesterolemia: No Hx Pacemaker: No HX Cerebrovascular Accident: No Hx Seizures: No Hx Dementia: No Hx Diabetes: No Hx Gastrointestinal Disorders: Yes (acid reflux) Hx Liver Disease: Yes (Hepatitis C (diagnosed 2011); Undetectable Viral Load without treatment.) Hx Genitourinary Disorders: No Hx Sexually Transmitted Disorders: No Hx Renal Disease (ESRD): No Hx Thyroid Disease: No Hx Human Immunodeficiency Virus (HIV): No (last 2017 negative) Hx Hepatitis C: Yes (Diagnosed 2011); Undetectable Viral Load without treatment. ) Hx Depression: Yes Hx Suicide Attempt: Yes (pill overdose at age 21. Pt denies SI and any recent attempts of suicide) Hx Bipolar Disorder: Yes (On meds.) Hx Schizophrenia: No Other Medical History: no suicidal,no homicidal - Patient Surgical History Past Surgical History: No Hx Neurologic Surgery: No Hx Cataract Extraction: No Hx Cardiac Surgery: No Hx Lung Surgery: No Hx Breast Surgery: No Hx Breast Biopsy: No Hx Abdominal Surgery: No Hx Appendectomy: No Hx Cholecystectomy: No Hx Genitourinary Surgery: No Hx Section: No Hx Orthopedic Surgery: No Anesthesia Reaction: No - PPD History Previous Implant?: Yes Documented Results: Negative w/proof Implanted On Prior [facility] Admission?: Yes Date: 03/06/18 Results: 0 mm PPD to be Administered?: No - Smoking Cessation Smoking history: Current every day smoker Have you smoked in the past 12 months: Yes Aproximately how many cigarettes per day: 4 Cigars Per Day: 0 Hx Chewing Tobacco Use: No Initiated information on smoking cessation: Yes 'Breaking Loose' booklet given: 04/19/18 - Substance & Tx. History Hx Alcohol Use: No Hx Substance Use: Yes Substance Use Type: Cocaine, Heroin Hx Substance Use Treatment: Yes ([facility] 03/04/18 to 03/06/18) - Substances Abused Heroin Route: Injection Frequency: Daily Amount used: 10 bags Age of first use: 21 Date of Last Use: 04/19/18 Cocaine Route: Injection Frequency: Daily Amount used: 100$ Age of first use: 30 Date of Last Use: 04/19/18 Family Disease History - Family Disease History Family Disease History: Heart Disease: Mother, Other: Father (DRUG AND ALCOHOL, ALIVE STILL DRINKS) Admission Physical Exam [facility] - Vital Signs Vital Signs: Vital Signs - 24 hr 04/19/18 15:08 Temperature 97.1 F L Pulse Rate 88 Respiratory 17 Rate Blood Pressure 109/76 - Physical General Appearance: Yes: Moderate Distress, Tremorous, Irritable, Sweating, Anxious HEENTM: Yes: Normal ENT Inspection, NEEL, Pharynx Normal Respiratory: Yes: Normal Breath Sounds, Labored Respiration, No Respiratory Distress Neck: Yes: Within Normal Limits, Supple, Trachea in good position Breast: Yes: Within Normal Limits Cardiology: Yes: Regular Rhythm, Regular Rate, S1, S2, Edema Abdominal: Yes: Within Normal Limits, Normal Bowel Sounds, Non Tender, Flat, Soft Genitourinary: Yes: Within Normal Limits Back: Yes: Muscle Spasm Musculoskeletal: Yes: Back pain, Muscle Pain Extremities: Yes: Within Normal Limits, Normal Range of Motion, Tremors Neurological: Yes: enologist II-XII NML intact, Fully Oriented, Alert, Motor Strength 5/5 Integumentary: Yes: Dry, Track Allen Lymphatic: Yes: Within Normal Limits - Diagnostic (1) Opioid dependence with withdrawal Current Visit: No Status: Acute (2) Asthma Current Visit: No Status: Chronic (3) Chronic back pain Current Visit: No Status: Chronic (4) History of herniated intervertebral disc Current Visit: No Status: Chronic Comment: Thoracic and Lumbar Spinal Areas. (5) Neuropathy Current Visit: No Status: Chronic (6) Cocaine dependence Current Visit: No Status: Suspected (7) Sciatica Current Visit: Yes Status: Acute (8) Dehydration Current Visit: Yes Status: Acute (9) IVDU (intravenous drug user) Current Visit: No Status: Acute (10) Weight loss Current Visit: No Status: Acute Cleared for Admission [facility] - Detox or Rehab [facility] Level of Care: Medically Managed Detox Regimen/Protocol: Methadone [facility] Breath Alcohol Content Breath Alcohol Content: 0 Urine Drug Screen - Results Drug Screen Negative: No Urine Drug Screen Results: JASMEET-Cocaine, OPI-Opiates, BZO-Benzodiazepines, FEN- Fentanyl Inpatient Rehab Admission - Rehab Decision to Admit Inpatient rehab admission?: No
[2018-04-19] MEDS ORDERED: MAGNESIUM HYDROX 2400MG/30ML ORAL SUSPENSION 30 ML CUP PO PRN (15:49)
[2018-04-19] MEDS ORDERED: MAG HYDROX/AL HYDROX/SIMETH 30 ML UNIT-DOSE CUP PO PRN (15:49)
[2018-04-19] MEDS ORDERED: guaiFENesin/D-METHORPHAN HB 10 ML UNIT-DOSE CUPS PO PRN (15:49)
[2018-04-19] MEDS ORDERED: ACETAMINOPHEN 325 MG TABLET (FP) PO PRN (15:49)
[2018-04-19] MEDS ORDERED: MENTHOL/PHENOL 1 EACH UD MM PRN (15:49)
[2018-04-19] MEDS ORDERED: hydrOXYzine PAMOATE 25 MG CAPSULE (FP) PO PRN (15:49)
[2018-04-19] MEDS ORDERED: MAGNESIUM CITRATE 300 ML BOTTLE PO PRN (15:49)
[2018-04-19] MEDS ORDERED: LOPERAMIDE HCL 2 MG CAPSULE PO PRN (15:49)
[2018-04-19] MEDS ORDERED: P-EPHED 60MG/TRIPROLIDI 2.5MG TABLET PO PRN (15:49)
[2018-04-19] MEDS ORDERED: METHADONE HCL 10 MG TABLET (FOR DETOX USE ONLY) PO ONE ×2 (16:45→23:00)
[2018-04-19] MEDS: diazePAM 5 MG TABLET PO PRN ×2 (18:34→22:38)
[2018-04-19] MEDS: MELATONIN 5 MG TABLETS PO PRN (22:14)
[2018-04-19] MEDS: cloNIDine HCL 0.1 MG TABLET PO SCH (22:14)
[2018-04-19] MEDS: THIAMINE HCL 100 MG TABLET (FP) PO SCH (22:14)
[2018-04-20] MEDS: diazePAM 5 MG TABLET PO PRN ×5 (05:29→22:59)
--- NOTE | 2018-04-20 09:49 | CONSULT ---
[facility] Psychiatric Consult - Data Date of interview: 04/20/18 Admission source: [facility] Identifying data: Patient is a 42 year single male, without children, unemployed , domiciled, and is supported by [facility] This is one of mutiple admissions for patient. Patient admitted to for opiate dependence. Substance Abuse History: Smoking Cessation. Smoking history: Current every day smoker. Have you smoked in the past 12 months: Yes. Aproximately how many cigarettes per day: 4. Cigars Per Day: 0. Hx Chewing Tobacco Use: No. Initiated information on smoking cessation: Yes. 'Breaking Loose' booklet given : 04/19/18. - Substance & Tx. History. Hx Alcohol Use: No. Hx Substance Use: Yes. Substance Use Type: Cocaine, Heroin. Hx Substance Use Treatment: Yes ( [facility] 03/04/18 to 03/06/18). - Substances Abused. Heroin. Route: Injection. Frequency: Daily. Amount used: 10 bags. Age of first use: 21. Date of Last Use: 04/19/18. Cocaine. Route: Injection. Frequency: Daily. Amount used: 100$. Age of first use: 30. Date of Last Use: 04/19/18 Medical History: Anemia, asthma, acid reflux, Hep C, Neuropathy, Sciatica Psychiatric History: Patient reports h/o approximately eight psychiatric hospitalizations. States his most recent psychiatric hospitalization was in 2007 at [facility] in [place] for depression. Mr. Mazariegos has also been hospitalized at other facilities in [place] and [place]. States his hospitalizations were due to his history of panic attakcs and depression. He reports h/o two suicide attempts by overdose of "pills" and "drugs". Outpatient psychiatric care is provided at [facility]. Diagnosis of depression and anxiety. Mr. Mazariegos is currently prescribed wellbutrin 150mg XL + gabapentin 800mg TID. Physical/Sexual Abuse/Trauma History: denies. Mental Status Exam - Mental Status Exam Alert and Oriented to: Time, Place, Person Cognitive Function: Good Patient Appearance: Well Groomed Mood: Sad Affect: Mood Congruent Patient Behavior: Cooperative Speech Pattern: Clear Voice Loudness: Normal Thought Process: Intact, Goal Oriented Thought Disorder: Not Present Hallucinations: Denies Suicidal Ideation: Denies Homicidal Ideation: Denies Insight/Judgement: Poor Sleep: Fair Appetite: Fair Muscle strength/Tone: Normal Gait/Station: Normal Psychiatric Findings - Problem List ([place] 1, 2,3) (1) Opioid dependence with withdrawal Current Visit: Yes Status: Acute (2) Cocaine dependence Current Visit: Yes Status: Chronic (3) Substance induced mood disorder Current Visit: Yes Status: Acute (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 Detoxification in progress. Will order Wellbutrin 150mg Xl + Gabapentin 800mg TID. Benefits and side effects discussed. Verbal consent given.
[2018-04-20] MEDS ORDERED: METHADONE HCL 10 MG TABLET (FOR DETOX USE ONLY) PO ONE (10:00)
[2018-04-20] MEDS: cloNIDine HCL 0.1 MG TABLET PO SCH ×3 (10:23→22:56)
[2018-04-20] MEDS: CYCLOBENZAPRINE HCL 10 MG TABLET (FP) PO PRN (10:23)
[2018-04-20] MEDS: PRENATAL VITAMINS W/ FOLIC ACID TABLET (FP) PO SCH (10:23)
[2018-04-20 10:44] LABS: HEMATOCRIT 34.5 % (35.4-49); HEMOGLOBIN 11.9 GM/dL (11.7-16.9); MCHC 34.5 g/dl (32.0-35.9); MEAN CELL VOLUME 81.3 fl (80-96); MEAN PLT VOLUME 8.7 fl (7.5-11.1); PLATELET COUNT 202 K/MM3 (134-434); RBC 4.24 M/mm3 (4.00-5.60); RDW 14.5 % (11.9-15.9); WHITE BLOOD COUNT 4.1 K/mm3 (4.0-10.0)
[2018-04-20 10:51] LABS: ALBUMIN 3.1 g/dl (3.4-5.0); ALK PHOS 72 U/L (45-117); ANION GAP 5 MMOL/L (8-16); BILIRUBIN,TOTAL 0.2 mg/dL (0.2-1); BLOOD UREA NITROGEN 16 mg/dL (7-18); CHLORIDE 104 mmol/L (98-107); CO2 30 mmol/L (21-32); CREATININE 0.7 mg/dL (0.55-1.3); GLUCOSE,RANDOM 86 mg/dL (74-106); POTASSIUM 4.2 mmol/L (3.5-5.1); SGOT/AST 24 U/L (15-37); SGPT/ALT 24 U/L (13-61); SODIUM 139 mmol/L (136-145); TOT PROT 6.6 g/dl (6.4-8.2)
[2018-04-20] MEDS: GABAPENTIN 400 MG CAPSULE (FP) PO SCH ×2 (11:59→22:56)
--- NOTE | 2018-04-20 12:31 | PN ---
BHS COWS - Scale Resting Pulse: 0= [place] 80 or Below Sweatin= Chills/Flushing Restless Observation: 1= Difficult to Sit Still Pupil Size: 1= Pupils >than Normal Bone or Joint Aches: 1= Mild Discomfort Runny Nose/ Eye Tearin= Nasal Congestion GI Upset > 30mins: 1= Stomach Cramp Tremor Observation of Outstretched Hands: 1= Tremor [place], Not Seen Yawning Observation: 1= 1-2x During Session Anxiety or Irritability: 1=Feels Anxious/Irritable Goose Flesh Skin: 0=Smooth Skin COWS Score: 9 BHS Progress Note (SOAP) Subjective: reported in pain management taking oxy 10-325 mg tid last filled 30 days on stated that taking klonozapine 1 mg tid last fill 04/17/18 30 days patient experiencing body aches and tremor otherwise feeling ok patient wants to return to his pain management provider upon discharged Objective: 04/20/18 12:34 Vital Signs Temperature 95.5 F L 04/20/18 09:35 Pulse Rate 73 04/20/18 09:35 Respiratory Rate 20 04/20/18 09:35 Blood Pressure 90/63 04/20/18 09:35 O2 Sat by Pulse Oximetry (%) Laboratory Last Values WBC 4.1 K/mm3 (4.0-10.0) 04/20/18 07:50 RBC 4.24 M/mm3 (4.00-5.60) 04/20/18 07:50 Hgb 11.9 GM/dL (11.7-16.9) 04/20/18 07:50 Hct 34.5 % (35.4-49) L 04/20/18 07:50 MCV 81.3 fl (80-96) 04/20/18 07:50 MCH 28.0 pg (25.7-33.7) 04/20/18 07:50 MCHC 34.5 g/dl (32.0-35.9) 04/20/18 07:50 RDW 14.5 % (11.9-15.9) 04/20/18 07:50 Plt Count 202 K/MM3 (134-434) 04/20/18 07:50 MPV 8.7 fl (7.5-11.1) 04/20/18 07:50 Sodium 139 mmol/L (136-145) 04/20/18 07:50 Potassium 4.2 mmol/L (3.5-5.1) 04/20/18 07:50 Chloride 104 mmol/L (98-107) 04/20/18 07:50 Carbon Dioxide 30 mmol/L (21-32) 04/20/18 07:50 Anion Gap 5 MMOL/L (8-16) L 04/20/18 07:50 BUN 16 mg/dL (7-18) 04/20/18 07:50 Creatinine 0.7 mg/dL (0.55-1.3) 04/20/18 07:50 Creat Clearance w eGFR > 60 (>60) 04/20/18 07:50 Random Glucose 86 mg/dL (74-106) 04/20/18 07:50 Calcium 8.0 mg/dL (8.5-10.1) L 04/20/18 07:50 Total Bilirubin 0.2 mg/dL (0.2-1) 04/20/18 07:50 AST 24 U/L (15-37) 04/20/18 07:50 ALT 24 U/L (13-61) 04/20/18 07:50 Alkaline Phosphatase 72 U/L (45-117) 04/20/18 07:50 Total Protein 6.6 g/dl (6.4-8.2) 04/20/18 07:50 Albumin 3.1 g/dl (3.4-5.0) L 04/20/18 07:50 RPR Titer Nonreactive (NONREACTIVE) 04/20/18 07:50 HIV 1&2 Antibody Screen Negative 04/20/18 07:50 HIV P24 Antigen Negative 04/20/18 07:50 lab noted Assessment: 04/20/18 12:35 withdrawal sx Plan: continue detox
[2018-04-20] MEDS: THIAMINE HCL 100 MG TABLET (FP) PO SCH (22:56)
[2018-04-20] MEDS: MELATONIN 5 MG TABLETS PO PRN (22:57)
[2018-04-21] MEDS: diazePAM 5 MG TABLET PO PRN ×5 (05:52→22:10)
[2018-04-21] MEDS: IBUPROFEN 400 MG TABLET (FP) PO PRN ×2 (05:52→14:27)
[2018-04-21] MEDS ORDERED: METHADONE HCL 5 MG TABLET (FOR DETOX USE ONLY) PO ONE (10:00)
[2018-04-21] MEDS: GABAPENTIN 400 MG CAPSULE (FP) PO SCH ×2 (10:44→22:10)
[2018-04-21] MEDS: PRENATAL VITAMINS W/ FOLIC ACID TABLET (FP) PO SCH (10:44)
[2018-04-21] MEDS: cloNIDine HCL 0.1 MG TABLET PO SCH ×3 (10:44→22:11)
[2018-04-21] MEDS: CYCLOBENZAPRINE HCL 10 MG TABLET (FP) PO PRN ×2 (10:46→22:10)
--- NOTE | 2018-04-21 12:45 | PN ---
BHS COWS - Scale Resting Pulse: 0= [place] 80 or Below Sweatin= Chills/Flushing Restless Observation: 0= Sits Still Pupil Size: 1= Pupils >than Normal Bone or Joint Aches: 1= Mild Discomfort Runny Nose/ Eye Tearin= Nasal Congestion GI Upset > 30mins: 1= Stomach Cramp Tremor Observation of Outstretched Hands: 1= Tremor [place], Not Seen Yawning Observation: 0= None Anxiety or Irritability: 1=Feels Anxious/Irritable Goose Flesh Skin: 0=Smooth Skin COWS Score: 7 BHS Progress Note (SOAP) Subjective: body aches joints pain muscle cramp mild tremor otherwise feeling ok Objective: 04/21/18 12:58 Vital Signs Temperature 96.8 F L 04/21/18 09:21 Pulse Rate 70 04/21/18 09:21 Respiratory Rate 18 04/21/18 09:21 Blood Pressure 97/57 L 04/21/18 09:21 O2 Sat by Pulse Oximetry (%) Laboratory Last Values WBC 4.1 K/mm3 (4.0-10.0) 04/20/18 07:50 RBC 4.24 M/mm3 (4.00-5.60) 04/20/18 07:50 Hgb 11.9 GM/dL (11.7-16.9) 04/20/18 07:50 Hct 34.5 % (35.4-49) L 04/20/18 07:50 MCV 81.3 fl (80-96) 04/20/18 07:50 MCH 28.0 pg (25.7-33.7) 04/20/18 07:50 MCHC 34.5 g/dl (32.0-35.9) 04/20/18 07:50 RDW 14.5 % (11.9-15.9) 04/20/18 07:50 Plt Count 202 K/MM3 (134-434) 04/20/18 07:50 MPV 8.7 fl (7.5-11.1) 04/20/18 07:50 Sodium 139 mmol/L (136-145) 04/20/18 07:50 Potassium 4.2 mmol/L (3.5-5.1) 04/20/18 07:50 Chloride 104 mmol/L (98-107) 04/20/18 07:50 Carbon Dioxide 30 mmol/L (21-32) 04/20/18 07:50 Anion Gap 5 MMOL/L (8-16) L 04/20/18 07:50 BUN 16 mg/dL (7-18) 04/20/18 07:50 Creatinine 0.7 mg/dL (0.55-1.3) 04/20/18 07:50 Creat Clearance w eGFR > 60 (>60) 04/20/18 07:50 Random Glucose 86 mg/dL (74-106) 04/20/18 07:50 Calcium 8.0 mg/dL (8.5-10.1) L 04/20/18 07:50 Total Bilirubin 0.2 mg/dL (0.2-1) 04/20/18 07:50 AST 24 U/L (15-37) 04/20/18 07:50 ALT 24 U/L (13-61) 04/20/18 07:50 Alkaline Phosphatase 72 U/L (45-117) 04/20/18 07:50 Total Protein 6.6 g/dl (6.4-8.2) 04/20/18 07:50 Albumin 3.1 g/dl (3.4-5.0) L 04/20/18 07:50 RPR Titer Nonreactive (NONREACTIVE) 04/20/18 07:50 HIV 1&2 Antibody Screen Negative 04/20/18 07:50 HIV P24 Antigen Negative 04/20/18 07:50 lab noted low Ca++ 04/21/18 13:00 Assessment: 04/21/18 13:01 withdrawal sx hypocalcemia Plan: continue detox oscal supplement
[2018-04-21] MEDS: CALCIUM 250MG/VIT-D 125 UNITS 1 COMBO TABLET PO SCH ×2 (14:26→18:43)
[2018-04-21] MEDS: THIAMINE HCL 100 MG TABLET (FP) PO SCH (22:11)
[2018-04-22] MEDS: IBUPROFEN 400 MG TABLET (FP) PO PRN (05:29)
[2018-04-22] MEDS: diazePAM 5 MG TABLET PO PRN (05:29)
[2018-04-22] MEDS: CALCIUM 250MG/VIT-D 125 UNITS 1 COMBO TABLET PO SCH (08:18)
[2018-04-22 09:02] VITALS: BP 114/72; PULSE 69; TEMP 95.8
[2018-04-22] MEDS: GABAPENTIN 400 MG CAPSULE (FP) PO SCH (09:12)
[2018-04-22] MEDS: PRENATAL VITAMINS W/ FOLIC ACID TABLET (FP) PO SCH (09:12)
[2018-04-22] MEDS ORDERED: METHADONE HCL 5 MG TABLET (FOR DETOX USE ONLY) PO ONE (10:00)
[2018-04-22] MEDS: cloNIDine HCL 0.1 MG TABLET PO SCH (11:19)
--- NOTE | 2018-04-22 15:21 | DS ---
[facility] Detox Discharge Summary Admission Date: 04/19/18 Discharge Date: 04/22/18 - History Present History: Opioid Dependence Additional Comments: 42 years old male admitted on 04/19/18 for opioid withdrawal stabilization report feeling better today able to tolerate food and fluid better patient preferred return to oxy and klonopine provider continue taking oxy and benzo patient agrees to share medication list and lab report with aftercare provider Pertinent Past History: patient agrees utilizing [facility] for medical mental and addiction issues - Physical Exam Results Vital Signs: Vital Signs Temperature 95.8 F L 04/22/18 09:01 Pulse Rate 69 04/22/18 09:01 Respiratory Rate 18 04/22/18 09:01 Blood Pressure 114/72 04/22/18 09:01 O2 Sat by Pulse Oximetry (%) Pertinent Admission Physical Exam Findings: opioid withdrawal sx Laboratory Last Values WBC 4.1 K/mm3 (4.0-10.0) 04/20/18 07:50 RBC 4.24 M/mm3 (4.00-5.60) 04/20/18 07:50 Hgb 11.9 GM/dL (11.7-16.9) 04/20/18 07:50 Hct 34.5 % (35.4-49) L 04/20/18 07:50 MCV 81.3 fl (80-96) 04/20/18 07:50 MCH 28.0 pg (25.7-33.7) 04/20/18 07:50 MCHC 34.5 g/dl (32.0-35.9) 04/20/18 07:50 RDW 14.5 % (11.9-15.9) 04/20/18 07:50 Plt Count 202 K/MM3 (134-434) 04/20/18 07:50 MPV 8.7 fl (7.5-11.1) 04/20/18 07:50 Sodium 139 mmol/L (136-145) 04/20/18 07:50 Potassium 4.2 mmol/L (3.5-5.1) 04/20/18 07:50 Chloride 104 mmol/L (98-107) 04/20/18 07:50 Carbon Dioxide 30 mmol/L (21-32) 04/20/18 07:50 Anion Gap 5 MMOL/L (8-16) L 04/20/18 07:50 BUN 16 mg/dL (7-18) 04/20/18 07:50 Creatinine 0.7 mg/dL (0.55-1.3) 04/20/18 07:50 Creat Clearance w eGFR > 60 (>60) 04/20/18 07:50 Random Glucose 86 mg/dL (74-106) 04/20/18 07:50 Calcium 8.0 mg/dL (8.5-10.1) L 04/20/18 07:50 Total Bilirubin 0.2 mg/dL (0.2-1) 04/20/18 07:50 AST 24 U/L (15-37) 04/20/18 07:50 ALT 24 U/L (13-61) 04/20/18 07:50 Alkaline Phosphatase 72 U/L (45-117) 04/20/18 07:50 Total Protein 6.6 g/dl (6.4-8.2) 04/20/18 07:50 Albumin 3.1 g/dl (3.4-5.0) L 04/20/18 07:50 RPR Titer Nonreactive (NONREACTIVE) 04/20/18 07:50 HIV 1&2 Antibody Screen Negative 04/20/18 07:50 HIV P24 Antigen Negative 04/20/18 07:50 lab noted - Treatment Hospital Course: Detox Protocol Followed, Detoxed Safely, Responded well, Discharged Condition Good, Rehab Referral Accepted Patient has Accepted a Rehab Referral to: return to [facility] provider - Medication Discharge Medications: Ambulatory Orders Gabapentin [Neurontin -] 800 mg PO BID 01/19/14 Omeprazole [Prilosec] 20 mg PO DAILY 07/27/15 Bupropion HCl [Wellbutrin Xl -] 150 mg PO DAILY #30 tab.sr.24h 05/29/17 Mirtazapine [Remeron -] 15 mg PO HS #30 tablet 05/29/17 Cyclobenzaprine HCl [Flexeril 10 mg] 10 mg PO DAILY 03/04/18 Oxycodone HCl/Acetaminophen [Endocet 10-325 mg Tablet] 1 tab PO TID 03/04/18 Albuterol Sulfate Inhaler - [Ventolin HFA Inhaler -] 2 inh PO Q4H PRN #1 inhaler 04/22/18 - Diagnosis (1) Drug-induced mood disorder Status: Suspected (2) Nicotine dependence Status: Acute Qualifiers: Nicotine product type: cigarettes Substance use status: in withdrawal Qualified Code(s): F17.213 - Nicotine dependence, cigarettes, with withdrawal (3) Opioid dependence with withdrawal Status: Acute (4) Pain management Status: Chronic (5) Sedative, hypnotic or anxiolytic dependence with withdrawal, uncomplicated Status: Acute (6) Weight loss Status: Acute (7) Asthma Status: Chronic (8) Gastroesophageal reflux disease Status: Chronic - AMA Did Patient Leave Against Medical Advice: No
[2018-04-23] MEDS ORDERED: METHADONE HCL 10 MG TABLET (FOR DETOX USE ONLY) PO ONE (10:00)
[2018-04-24] MEDS ORDERED: METHADONE HCL 5 MG TABLET (FOR DETOX USE ONLY) PO ONE (06:00)
== END 2018-04-22 10:29 | disposition home or self-care (01) | DRG 773 ==
LOC: YASAS 14:34 → Y3N 16:29
PROVIDERS: ADMIT Surgery; ATTEND Surgery
PROC: HZ2ZZZZ Detoxification Services for Substance Abuse Treatment (ICD-10-PCS; principal; 2018-04-19)
DX: F11.23 Opioid dependence with withdrawal (principal); F13.230 Sedative, hypnotic or anxiolytic dependence with withdrawal, uncomplicated; F14.20 Cocaine dependence, uncomplicated; F17.213 Nicotine dependence, cigarettes, with withdrawal; F19.24 Other psychoactive substance dependence with psychoactive substance-induced mood disorder; J45.909 Unspecified asthma, uncomplicated; K21.9 Gastro-esophageal reflux disease without esophagitis; E83.51 Hypocalcemia; M54.30 Sciatica, unspecified side; E86.0 Dehydration; G62.9 Polyneuropathy, unspecified; Z91.5 Personal history of self-harm
CPT/HCPCS: 36415; 80053; 85027; 86593; 87389; J0735

== ENCOUNTER 2018-06-17 10:12 | Inpatient (IN) | payer OTHER ==
[2018-06-17 10:43] VITALS: BMI 21.6
--- NOTE | 2018-06-17 11:28 | HP ---
COWS - Scale Resting Pulse: 0= [place] 80 or Below Sweatin= Chills/Flushing Restless Observation: 1= Difficult to Sit Still Pupil Size: 1= Pupils >than Normal Bone or Joint Aches: 2= Severe Diffuse Aches Runny Nose/ Eye Tearin= Runny Nose/Eyes GI Upset > 30mins: 3= Vomiting/Diarrhea Tremor Observation: 2= Slight Tremor Visible Yawning Observation: 2= >3x During Session Anxiety or Irritability: 2=Irritable/Anxious Goose Flesh Skin: 0=Smooth Skin COWS Score: 16 CIWA Score - Admission Criteria OASAS Guidelines: Admission for Medically Managed Detox: Requires at least one of the followin. CIWA greater than 12 2. Seizures within the past 24 hours 3. Delirium tremens within the past 24 hours 4. Hallucinations within the past 24 hours 5. Acute intervention needed for co occurring medical disorder 6. Acute intervention needed for co occurring psychiatric disorder 7. Severe withdrawal that cannot be handled at a lower level of care (continued vomiting, continued diarrhea, abnormal vital signs) requiring intravenous medication and/or fluids 8. Admission ROS S - HPI Chief Complaint: i need help to stop using heroin and cocaine Allergies/Adverse Reactions: Allergies Allergy/AdvReac Type Severity Reaction Status Date / Time penicillin G Allergy Severe Rash Verified 06/17/18 10:31 History of Present Illness: this 43 years old male with heroin and cocaine dependence seeking detox, withdrawal symptom, multiple admissions to detox.last detox [facility] 04/19/18 to 04/22/18 hepatitis c follow up by pmd weight loss nicotine dependence 3 cigarette bipolar disorder,adhs,anxiety on medication longest sobriety 3 years plan for rehab after detox also has asthma,gerd Exam Limitations: No Limitations - Ebola screening Have you traveled outside of the country in the last 21 days: No (N) Have you had contact with anyone from an Ebola affected area: No Do you have a fever: No - Review of Systems Constitutional: Chills, Loss of Appetite, Malaise, Night Sweats, Changes in sleep, Weakness, Unintentional Wgt. Loss EENT: reports: Tearing, Nose Congestion Respiratory: reports: No Symptoms reported Cardiac: reports: No Symptoms Reported GI: reports: Diarrhea, Nausea, Vomiting, Abdominal cramping : reports: No Symptoms Reported Musculoskeletal: reports: Back Pain, Joint Pain, Muscle Pain, Joint Stiffness Integumentary: reports: Dryness Neuro: reports: Headache, Tremors Endocrine: reports: No Symptoms Reported Hematology: reports: No Symptoms Reported Psychiatric: reports: No Sypmtoms Reported, Judgement Intact, Mood/Affect Appropiate, Orientated x3, other (bipolar disored,adhd,anxiety) Patient History - Patient Medical History Hx Anemia: Yes (no med) Hx Asthma: Yes (on albuterol inhaler) Hx Chronic Obstructive Pulmonary Disease (COPD): No Hx Cancer: No Hx Cardiac Disorders: No Hx Congestive Heart Failure: No Hx Hypertension: No Hx Hypercholesterolemia: No Hx Pacemaker: No HX Cerebrovascular Accident: No Hx Seizures: No Hx Dementia: No Hx Diabetes: No Hx Gastrointestinal Disorders: Yes (acid reflux) Hx Liver Disease: Yes (Hepatitis C (diagnosed 2011); Undetectable Viral Load without treatment.) Hx Genitourinary Disorders: No Hx Sexually Transmitted Disorders: No Hx Renal Disease (ESRD): No Hx Thyroid Disease: No Hx Human Immunodeficiency Virus (HIV): No (last 2017 negative) Hx Hepatitis C: Yes (Diagnosed 2011); Undetectable Viral Load without treatment. ) Hx Depression: Yes Hx Suicide Attempt: Yes (pill overdose at age 21. Pt denies SI and any recent attempts of suicide) Hx Bipolar Disorder: Yes (On meds.) Hx Schizophrenia: No Other Medical History: no suicidal,no homicidal, - Patient Surgical History Past Surgical History: No Hx Neurologic Surgery: No Hx Cataract Extraction: No Hx Cardiac Surgery: No Hx Lung Surgery: No Hx Breast Surgery: No Hx Breast Biopsy: No Hx Abdominal Surgery: No Hx Appendectomy: No Hx Cholecystectomy: No Hx Genitourinary Surgery: No Hx Section: No Hx Orthopedic Surgery: No Anesthesia Reaction: No - PPD History Previous Implant?: Yes Documented Results: Negative w/proof Date: 03/06/18 Results: 0 mm PPD to be Administered?: No - Smoking Cessation Smoking history: Current every day smoker Have you smoked in the past 12 months: Yes Aproximately how many cigarettes per day: 3 Cigars Per Day: 0 Hx Chewing Tobacco Use: No Initiated information on smoking cessation: Yes 'Breaking Loose' booklet given: 06/17/18 - Substance & Tx. History Hx Alcohol Use: No Hx Substance Use: Yes Substance Use Type: Cocaine, Heroin Hx Substance Use Treatment: Yes ([facility] 04/19/18 to 03/22/18) - Substances abused Heroin Substance route: Injection Frequency: Daily Amount used: like 8 to 10 bags Age of first use: 16 Date of last use: 06/17/18 Cocaine Substance route: Injection Frequency: 1-2 times per week Amount used: 3 bags Age of first use: 14 Date of last use: 06/16/18 Family Disease History - Family Disease History Family Disease History: Heart Disease: Mother, Other: Father (DRUG AND ALCOHOL, ALIVE STILL DRINKS) Admission Physical Exam [facility] - Vital Signs Vital Signs: Vital Signs - 24 hr 06/17/18 06/17/18 10:36 10:52 Temperature 97.7 F 97.7 F Pulse Rate 77 77 Respiratory 16 16 Rate Blood Pressure 99/59 L 99/59 L - Physical General Appearance: Yes: Moderate Distress, Tremorous, Irritable, Sweating, Anxious HEENTM: Yes: Normal ENT Inspection, Pharynx Normal Respiratory: Yes: Within Normal Limits, Lungs Clear, Normal Breath Sounds Neck: Yes: Within Normal Limits, Supple, Trachea in good position Breast: Yes: Within Normal Limits Cardiology: Yes: Within Normal Limits, Regular Rhythm, Regular Rate, S1, S2 Abdominal: Yes: Within Normal Limits, Normal Bowel Sounds, Non Tender, Flat, Soft Genitourinary: Yes: Within Normal Limits Back: Yes: Muscle Spasm Musculoskeletal: Yes: full range of Motion, Back pain, Joint Stiffness, Muscle Pain Extremities: Yes: Normal Range of Motion, Tremors Neurological: Yes: Within Normal Limits, 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-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 NML intact, Fully Oriented, Alert, Motor Strength 5/5 Integumentary: Yes: Dry, Track Allen, Other (tattoo) Lymphatic: Yes: Within Normal Limits - Diagnostic (1) Opioid dependence with withdrawal Current Visit: No Status: Acute (2) Bipolar disorder Current Visit: No Status: Acute (3) Dehydration Current Visit: No Status: Acute (4) IVDU (intravenous drug user) Current Visit: No Status: Acute (5) Low back pain Current Visit: No Status: Acute (6) Sciatica Current Visit: No Status: Acute (7) Weight loss Current Visit: No Status: Acute (8) ADHD (attention deficit hyperactivity disorder) Current Visit: No Status: Chronic Comment: Historical diagnosis. (9) Cocaine dependence Current Visit: No Status: Chronic (10) Gastroesophageal reflux disease Current Visit: No Status: Chronic (11) Neuropathy Current Visit: No Status: Chronic (12) Cocaine dependence Current Visit: No Status: Suspected Cleared for Admission S - Detox or Rehab [facility] Level of Care: Medically Managed Detox Regimen/Protocol: Methadone Breathalyzer - Breathalyzer Breathalyzer: 0 Urine Drug Screen - Test Device Lot number: [id number] Expiration date: 02/01/20 - Control Is test valid?: Yes - Results Drug screen NEGATIVE: No Urine drug screen results: JASMEET-Cocaine, MET-Methamphetamine, FEN-Fentanyl, MOP- Opiates Inpatient Rehab Admission - Rehab Decision to Admit Inpatient rehab admission?: No
[2018-06-17] MEDS ORDERED: ACETAMINOPHEN 325 MG TABLET (FP) PO PRN ×2 (11:38)
[2018-06-17] MEDS ORDERED: BISMUTH SUBSALICYLATE 262 MG/15 ML BTL PO PRN (11:38)
[2018-06-17] MEDS ORDERED: METHOCARBAMOL 500 MG TABLET PO PRN (11:38)
[2018-06-17] MEDS ORDERED: hydrOXYzine PAMOATE 25 MG CAPSULE (FP) PO PRN (11:38)
[2018-06-17] MEDS ORDERED: MAGNESIUM HYDROX 2400MG/30ML ORAL SUSPENSION 30 ML CUP PO PRN (11:38)
[2018-06-17] MEDS ORDERED: MAG HYDROX/AL HYDROX/SIMETH 30 ML UNIT-DOSE CUP PO PRN (11:38)
[2018-06-17] MEDS ORDERED: cloNIDine HCL 0.1 MG TABLET PO PRN (11:38)
[2018-06-17] MEDS ORDERED: MENTHOL/PHENOL 1 EACH UD MM PRN (11:38)
[2018-06-17] MEDS ORDERED: MAGNESIUM CITRATE 300 ML BOTTLE PO PRN (11:38)
[2018-06-17] MEDS ORDERED: ALBUTEROL SO4 8 GM HFA INHALER IH PRN (11:43)
[2018-06-17] MEDS ORDERED: METHADONE HCL 10 MG TABLET (FOR DETOX USE ONLY) PO ONE ×2 (11:50→23:00)
[2018-06-17] MEDS: RANITIDINE HCL 150 MG TABLET (FP) PO SCH ×2 (12:09→22:23)
[2018-06-17] MEDS: diazePAM 5 MG TABLET PO PRN ×3 (12:09→22:28)
[2018-06-17 15:42] LABS: ALBUMIN 3.7 g/dl (3.4-5.0); ALK PHOS 72 U/L (45-117); ANION GAP 3 MMOL/L (8-16); BILIRUBIN,TOTAL 0.4 mg/dL (0.2-1); BLOOD UREA NITROGEN 16 mg/dL (7-18); CHLORIDE 101 mmol/L (98-107); CO2 34 mmol/L (21-32); CREATININE 0.8 mg/dL (0.55-1.3); GLUCOSE,RANDOM 72 mg/dL (74-106); POTASSIUM 4.7 mmol/L (3.5-5.1); SGOT/AST 22 U/L (15-37); SGPT/ALT 29 U/L (13-61); SODIUM 137 mmol/L (136-145); TOT PROT 7.3 g/dl (6.4-8.2)
[2018-06-17 15:50] LABS: HEMATOCRIT 36.1 % (35.4-49); HEMOGLOBIN 11.8 GM/dL (11.7-16.9); MCH 27.1 pg (25.7-33.7); MCHC 32.8 g/dl (32.0-35.9); MEAN CELL VOLUME 82.5 fl (80-96); MEAN PLT VOLUME 8.6 fl (7.5-11.1); PLATELET COUNT 172 K/MM3 (134-434); RBC 4.37 M/mm3 (4.00-5.60); WHITE BLOOD COUNT 7.9 K/mm3 (4.0-10.0)
[2018-06-17] MEDS: MELATONIN 5 MG TABLETS PO PRN (22:24)
[2018-06-17] MEDS: THIAMINE HCL 100 MG TABLET (FP) PO SCH (22:24)
[2018-06-18] MEDS: diazePAM 5 MG TABLET PO PRN ×5 (03:30→22:09)
[2018-06-18] MEDS: IBUPROFEN 400 MG TABLET (FP) PO PRN (08:00)
[2018-06-18] MEDS ORDERED: METHADONE HCL 10 MG TABLET (FOR DETOX USE ONLY) PO ONE (10:00)
[2018-06-18] MEDS ORDERED: PRENATAL VITAMINS W/ FOLIC ACID TABLET (FP) PO SCH (10:00)
[2018-06-18] MEDS: RANITIDINE HCL 150 MG TABLET (FP) PO SCH ×2 (10:17→22:08)
--- NOTE | 2018-06-18 10:38 | PN ---
[facility]HS COWS - Scale Resting Pulse: 0= [place] 80 or Below Sweatin=Flushed/Facial Moisture Restless Observation: 1= Difficult to Sit Still Pupil Size: 0= Normal to Room Light Bone or Joint Aches: 2= Severe Diffuse Aches Runny Nose/ Eye Tearin= Runny Nose/Eyes GI Upset > 30mins: 0= None Tremor Observation of Outstretched Hands: 2= Slight Tremor Visible Yawning Observation: 1= 1-2x During Session Anxiety or Irritability: 2=Irritable/Anxious Goose Flesh Skin: 0=Smooth Skin COWS Score: 12 BHS Progress Note (SOAP) Subjective: body aches sweats shakes agitation interrupted sleep headache Objective: 06/18/18 10:35 Vital Signs Temperature 97.8 F 06/18/18 09:26 Pulse Rate 61 06/18/18 09:26 Respiratory Rate 18 06/18/18 09:26 Blood Pressure 109/56 L 06/18/18 09:26 O2 Sat by Pulse Oximetry (%) Laboratory Tests 06/17/18 06/17/18 06/17/18 12:15 12:15 12:15 WBC 7.9 RBC 4.37 Hgb 11.8 Hct 36.1 MCV 82.5 MCH 27.1 MCHC 32.8 RDW 16.0 H Plt Count 172 MPV 8.6 Sodium 137 Potassium 4.7 Chloride 101 Carbon Dioxide 34 H Anion Gap 3 L BUN 16 Creatinine 0.8 Creat Clearance w eGFR 105.51 Random Glucose 72 L Calcium 9.0 Total Bilirubin 0.4 AST 22 ALT 29 Alkaline Phosphatase 72 Total Protein 7.3 Albumin 3.7 RPR Titer Nonreactive HIV 1&2 Antibody Screen HIV P24 Antigen 06/17/18 12:15 WBC RBC Hgb Hct MCV MCH MCHC RDW Plt Count MPV Sodium Potassium Chloride Carbon Dioxide Anion Gap BUN Creatinine Creat Clearance w eGFR Random Glucose Calcium Total Bilirubin AST ALT Alkaline Phosphatase Total Protein Albumin RPR Titer HIV 1&2 Antibody Screen Negative HIV P24 Antigen Negative aaox3 ambulating no acute distress Assessment: 06/18/18 10:37 withdrawal sx Plan: continue detox increase fluids neurotin 800mg bid ordered flexiril 10mg daily
[2018-06-18] MEDS ORDERED: CYCLOBENZAPRINE HCL 10 MG TABLET (FP) PO SCH (10:45)
[2018-06-18 21:19] VITALS: TEMP 96.8
[2018-06-18] MEDS ORDERED: GABAPENTIN 400 MG CAPSULE (FP) PO SCH (22:00)
[2018-06-18] MEDS: THIAMINE HCL 100 MG TABLET (FP) PO SCH (22:07)
[2018-06-18] MEDS: MELATONIN 5 MG TABLETS PO PRN (22:07)
[2018-06-19 01:07] LABS: URINE APPEARANCE Clear; URINE BILIRUBIN Negative (NEGATIVE); URINE COLOR Yellow; URINE GLUCOSE (UA) Negative (NEGATIVE); URINE KETONE Negative (NEGATIVE); URINE LEUK ESTERASE Negative (NEGATIVE); URINE NITRITE Negative (NEGATIVE); URINE PROTEIN Negative (NEGATIVE); URINE UROBILINOGEN 0.2 mg/dL (0.2-1.0)
[2018-06-19] MEDS: diazePAM 5 MG TABLET PO PRN ×2 (03:00→07:58)
[2018-06-19 06:16] VITALS: BP 92/51; PULSE 57
[2018-06-19] MEDS: IBUPROFEN 400 MG TABLET (FP) PO PRN (07:59)
[2018-06-19] MEDS ORDERED: METHADONE HCL 10 MG TABLET (FOR DETOX USE ONLY) PO ONE (10:00)
--- NOTE | 2018-06-19 14:05 | PN ---
BHS COWS - Scale Resting Pulse: 0= [place] 80 or Below Sweatin= Chills/Flushing Restless Observation: 1= Difficult to Sit Still Pupil Size: 0= Normal to Room Light Bone or Joint Aches: 2= Severe Diffuse Aches Runny Nose/ Eye Tearin= None GI Upset > 30mins: 0= None Tremor Observation of Outstretched Hands: 0= None Yawning Observation: 1= 1-2x During Session Anxiety or Irritability: 2=Irritable/Anxious Goose Flesh Skin: 3=Piloerection COWS Score: 10 BHS Progress Note (SOAP) Subjective: Body Aches, Sweating, Anxious, Interrupted sleep. Objective: PATIENT A & O X 3, OBSERVED AMBULATING ON UNIT. IN NO ACUTE DISTRESS. 06/19/18 14:03 Vital Signs Temperature 96.8 F L 06/19/18 06:16 Pulse Rate 57 L 06/19/18 06:16 Respiratory Rate 16 06/19/18 06:16 Blood Pressure 92/51 L 06/19/18 06:16 O2 Sat by Pulse Oximetry (%) Laboratory Tests 06/17/18 06/17/18 06/17/18 12:15 12:15 12:15 WBC 7.9 RBC 4.37 Hgb 11.8 Hct 36.1 MCV 82.5 MCH 27.1 MCHC 32.8 RDW 16.0 H Plt Count 172 MPV 8.6 Sodium 137 Potassium 4.7 Chloride 101 Carbon Dioxide 34 H Anion Gap 3 L BUN 16 Creatinine 0.8 Creat Clearance w eGFR 105.51 Random Glucose 72 L Calcium 9.0 Total Bilirubin 0.4 AST 22 ALT 29 Alkaline Phosphatase 72 Total Protein 7.3 Albumin 3.7 Urine Color Urine Appearance Urine pH Ur Specific [place] Urine Protein Urine Glucose (UA) Urine Ketones Urine Blood Urine Nitrite Urine Bilirubin Urine Urobilinogen Ur Leukocyte Esterase RPR Titer Nonreactive HIV 1&2 Antibody Screen HIV P24 Antigen 06/17/18 06/18/18 12:15 14:58 WBC RBC Hgb Hct MCV MCH MCHC RDW Plt Count MPV Sodium Potassium Chloride Carbon Dioxide Anion Gap BUN Creatinine Creat Clearance w eGFR Random Glucose Calcium Total Bilirubin AST ALT Alkaline Phosphatase Total Protein Albumin Urine Color Yellow Urine Appearance Clear Urine pH 6.0 Ur Specific [place] 1.010 Urine Protein Negative Urine Glucose (UA) Negative Urine Ketones Negative Urine Blood Negative Urine Nitrite Negative Urine Bilirubin Negative Urine Urobilinogen 0.2 Ur Leukocyte Esterase Negative RPR Titer HIV 1&2 Antibody Screen Negative HIV P24 Antigen Negative LABS NOTED. Assessment: 06/19/18 14:05 WITHDRAWAL SYMPTOMS. Plan: CONTINUE DETOX. INCREASE DAILY PO FLUID / WATER INTAKE.
--- NOTE | 2018-06-19 14:13 | DS ---
[facility] Detox Discharge Summary Admission Date: 06/17/18 Discharge Date: 06/19/18 - History Present History: Opioid Dependence Additional Comments: DESPITE EFFORTS BY AIR DISPATCHER AND BY NURSING STAFF TO ADDRESS PATIENT'S MEDICAL NEEDS / CONCERNS, PATIENT DOES NOT WISH TO REMAIN TO COMPLETE DETOX REGIMEN. RISKS OF LEAVING DETOX UNIT AGAINST MEDICAL ADVICE AND PRIOR TO COMPLETION OF DETOX REGIMEN EXPLAINED TO PATIENT. PATIENT ADVISED TO GO IMMEDIATELY TO NEAREST ER SHOULD ANY INTOLERABLE WITHDRAWAL / DETOX SYMPTOMS DEVELOP AT ANY TIME. PATIENT VERBALIZED UNDERSTANDING OF ALL INFORMATION / RECOMMENDATIONS PRESENTED TO HIM PRIOR TO DEPARTURE FROM DETOX UNIT. PATIENT LEFT DETOX UNIT IN STABLE MEDICAL CONDITION. Pertinent Past History: Hep C, History Of Bipolar Disorder, History of Anemia, History of Asthma, History of G.E.R.D., History Of Depression, Dehydration, Intravenous Drug Use ( I.V.D.U.), History of Lower Back Pain, History Of Sciatica, History of Weight Loss, History of Neuropathy, History of Attention Deficit Hyperactivity Disorder (A.D.H.D.) - Physical Exam Results Vital Signs: Vital Signs Temperature 96.8 F L 06/19/18 06:16 Pulse Rate 57 L 06/19/18 06:16 Respiratory Rate 16 06/19/18 06:16 Blood Pressure 92/51 L 06/19/18 06:16 O2 Sat by Pulse Oximetry (%) Pertinent Admission Physical Exam Findings: WITHDRAWAL SYMPTOMS. Laboratory Tests 06/17/18 06/17/18 06/17/18 12:15 12:15 12:15 WBC 7.9 RBC 4.37 Hgb 11.8 Hct 36.1 MCV 82.5 MCH 27.1 MCHC 32.8 RDW 16.0 H Plt Count 172 MPV 8.6 Sodium 137 Potassium 4.7 Chloride 101 Carbon Dioxide 34 H Anion Gap 3 L BUN 16 Creatinine 0.8 Creat Clearance w eGFR 105.51 Random Glucose 72 L Calcium 9.0 Total Bilirubin 0.4 AST 22 ALT 29 Alkaline Phosphatase 72 Total Protein 7.3 Albumin 3.7 Urine Color Urine Appearance Urine pH Ur Specific [place] Urine Protein Urine Glucose (UA) Urine Ketones Urine Blood Urine Nitrite Urine Bilirubin Urine Urobilinogen Ur Leukocyte Esterase RPR Titer Nonreactive HIV 1&2 Antibody Screen HIV P24 Antigen 06/17/18 06/18/18 12:15 14:58 WBC RBC Hgb Hct MCV MCH MCHC RDW Plt Count MPV Sodium Potassium Chloride Carbon Dioxide Anion Gap BUN Creatinine Creat Clearance w eGFR Random Glucose Calcium Total Bilirubin AST ALT Alkaline Phosphatase Total Protein Albumin Urine Color Yellow Urine Appearance Clear Urine pH 6.0 Ur Specific [place] 1.010 Urine Protein Negative Urine Glucose (UA) Negative Urine Ketones Negative Urine Blood Negative Urine Nitrite Negative Urine Bilirubin Negative Urine Urobilinogen 0.2 Ur Leukocyte Esterase Negative RPR Titer HIV 1&2 Antibody Screen Negative HIV P24 Antigen Negative LABS NOTED. - Treatment Hospital Course: Detox Protocol Followed, Detoxed Safely - Medication Discharge Medications: Ambulatory Orders Gabapentin [Neurontin -] 800 mg PO BID 01/19/14 Omeprazole [Prilosec] 20 mg PO DAILY 07/27/15 Bupropion HCl [Wellbutrin Xl -] 150 mg PO DAILY #30 tab.sr.24h 05/29/17 Mirtazapine [Remeron -] 15 mg PO HS #30 tablet 05/29/17 Cyclobenzaprine HCl [Flexeril 10 mg] 10 mg PO DAILY 03/04/18 Albuterol Sulfate Inhaler - [Ventolin HFA Inhaler -] 2 inh PO Q4H PRN #1 inhaler 04/22/18 - Diagnosis (1) Bipolar disorder Status: Acute Qualifiers: Active/Remission status: remission status unspecified Qualified Code(s): F31.9 - Bipolar disorder, unspecified (2) Dehydration Status: Acute (3) Low back pain Status: Acute Qualifiers: Chronicity: unspecified Back pain laterality: unspecified Sciatica presence: unspecified whether sciatica present Qualified Code(s): M54.5 - Low back pain (4) Opioid dependence with withdrawal Status: Acute (5) Sciatica Status: Acute Qualifiers: Laterality: unspecified laterality Qualified Code(s): M54.30 - Sciatica, unspecified side (6) Weight loss Status: Acute (7) ADHD (attention deficit hyperactivity disorder) Status: Chronic Qualifiers: Attention deficit-hyperactivity disorder type: unspecified Qualified Code(s ): F90.9 - Attention-deficit hyperactivity disorder, unspecified type (8) Cocaine dependence Status: Chronic Qualifiers: Substance use status: uncomplicated Qualified Code(s): F14.20 - Cocaine dependence, uncomplicated (9) Gastroesophageal reflux disease Status: Chronic (10) Neuropathy Status: Chronic (11) IVDU (intravenous drug user) Status: Acute - AMA Did Patient Leave Against Medical Advice: Yes (PATIENT DID NOT WISH TO REAMIN TO COMPLETE DETOX REGIMEN.)
[2018-06-20] MEDS ORDERED: METHADONE HCL 10 MG TABLET (FOR DETOX USE ONLY) PO ONE (10:00)
[2018-06-21] MEDS ORDERED: METHADONE HCL 5 MG TABLET (FOR DETOX USE ONLY) PO ONE (06:00)
== END 2018-06-19 09:19 | disposition left against medical advice (07) | DRG 770 ==
LOC: YASAS 10:12 → Y6N 11:43
PROVIDERS: ADMIT Surgery; ATTEND Surgery
PROC: HZ2ZZZZ Detoxification Services for Substance Abuse Treatment (ICD-10-PCS; principal; 2018-06-17)
DX: F11.23 Opioid dependence with withdrawal (principal); F14.20 Cocaine dependence, uncomplicated; F41.9 Anxiety disorder, unspecified; F90.9 Attention-deficit hyperactivity disorder, unspecified type; F31.9 Bipolar disorder, unspecified; G62.9 Polyneuropathy, unspecified; E86.0 Dehydration; M54.40 Lumbago with sciatica, unspecified side; K21.9 Gastro-esophageal reflux disease without esophagitis; J45.909 Unspecified asthma, uncomplicated; R63.4 Abnormal weight loss; Z68.21 Body mass index [BMI] 21.0-21.9, adult; Z86.19 Personal history of other infectious and parasitic diseases; Z91.5 Personal history of self-harm; Z88.8 Allergy status to other drugs, medicaments and biological substances
CPT/HCPCS: 36415; 80053; 81003; 85027; 86593; 87389

== ENCOUNTER 2018-08-06 10:00 | Inpatient (IN) | payer OTHER ==
[2018-08-06 11:45] VITALS: BMI 21.9
--- NOTE | 2018-08-06 13:06 | HP ---
CIWA Score Nausea/Vomitin Muscle Tremors: 2 Anxiety: 2 Agitation: 2 Paroxysmal Sweats: 1-Minimal Palms Moist Orientation: 0-Oriented Tacttile Disturbances: 1-Very Mild Itch/Numbness Auditory Disturbances: 1-Very Mild Visual Disturbances: 0-None Headache: 2-Mild CIWA-Ar Total Score: 13 - Admission Criteria OASAS Guidelines: Admission for Medically Managed Detox: Requires at least one of the followin. CIWA greater than 12 2. Seizures within the past 24 hours 3. Delirium tremens within the past 24 hours 4. Hallucinations within the past 24 hours 5. Acute intervention needed for co occurring medical disorder 6. Acute intervention needed for co occurring psychiatric disorder 7. Severe withdrawal that cannot be handled at a lower level of care (continued vomiting, continued diarrhea, abnormal vital signs) requiring intravenous medication and/or fluids 8. Admission ROS [facility] - HPI Chief Complaint: i need help to stop drinking alcohol,heroin abused,mmtp Allergies/Adverse Reactions: Allergies Allergy/AdvReac Type Severity Reaction Status Date / Time penicillin G Allergy Severe Rash Verified 08/06/18 11:35 History of Present Illness: this 43 years old male with alcohol dependence,seeking detox,also heroin abused, mmtp 40 mgs/day,last medicated 08/05/18 multiple admission in the past,last 06/17/18 to 06/19/18 not completed weight loss nicotine dependence 2 cigarette longest sobriety 3 years bipolar disorder on med plan relocate after detox history of asthma hepatitis c follow up with pmd in [facility] Exam Limitations: No Limitations - Ebola screening Have you traveled outside of the country in the last 21 days: No (N) Have you had contact with anyone from an Ebola affected area: No Do you have a fever: No - Review of Systems Constitutional: Loss of Appetite, Malaise, Night Sweats, Changes in sleep, Weakness, Unintentional Wgt. Loss EENT: reports: Nose Congestion Respiratory: reports: No Symptoms reported Cardiac: reports: No Symptoms Reported GI: reports: Nausea, Vomiting, Abdominal cramping : reports: No Symptoms Reported Musculoskeletal: reports: Back Pain, Muscle Pain Integumentary: reports: Dryness Neuro: reports: Headache, Tremors Endocrine: reports: No Symptoms Reported Hematology: reports: No Symptoms Reported Psychiatric: reports: No Sypmtoms Reported, Judgement Intact, Mood/Affect Appropiate, Orientated x3, other (bipolar disorder) Other Systems: Reviewed and Negative Patient History - Patient Medical History Hx Anemia: Yes (no med) Hx Asthma: Yes (on albuterol inhaler) Hx Chronic Obstructive Pulmonary Disease (COPD): No Hx Cancer: No Hx Cardiac Disorders: No Hx Congestive Heart Failure: No Hx Hypertension: No Hx Hypercholesterolemia: No Hx Pacemaker: No HX Cerebrovascular Accident: No Hx Seizures: No Hx Dementia: No Hx Diabetes: No Hx Gastrointestinal Disorders: Yes (acid reflux) Hx Liver Disease: Yes (Hepatitis C (diagnosed 2011); Undetectable Viral Load without treatment.) Hx Genitourinary Disorders: No Hx Sexually Transmitted Disorders: No Hx Renal Disease (ESRD): No Hx Thyroid Disease: No Hx Human Immunodeficiency Virus (HIV): No (last 2017 negative) Hx Hepatitis C: Yes (Diagnosed 2011); Undetectable Viral Load without treatment. ) Hx Depression: Yes Hx Suicide Attempt: Yes (pill overdose at age 21. Pt denies SI and any recent attempts of suicide) Hx Bipolar Disorder: Yes (On meds.) Hx Schizophrenia: No Other Medical History: no suicidal,no homicidal - Patient Surgical History Past Surgical History: No Hx Neurologic Surgery: No Hx Cataract Extraction: No Hx Cardiac Surgery: No Hx Lung Surgery: No Hx Breast Surgery: No Hx Breast Biopsy: No Hx Abdominal Surgery: No Hx Appendectomy: No Hx Cholecystectomy: No Hx Genitourinary Surgery: No Hx Section: No Hx Orthopedic Surgery: No Anesthesia Reaction: No - PPD History Previous Implant?: Yes Implanted On Prior [facility] Admission?: Yes Date: 03/06/18 Results: 0 mm PPD to be Administered?: No - Smoking Cessation Smoking history: Current every day smoker Have you smoked in the past 12 months: Yes Aproximately how many cigarettes per day: 3 Cigars Per Day: 0 Hx Chewing Tobacco Use: No Initiated information on smoking cessation: Yes 'Breaking Loose' booklet given: 08/06/18 - Substance & Tx. History Hx Alcohol Use: Yes Hx Substance Use: Yes Substance Use Type: Alcohol, Cocaine, Heroin Hx Substance Use Treatment: Yes ([facility] 06/17/18 to 06/19/18) - Substances abused Heroin Substance route: Injection Frequency: Daily Amount used: like 8 to 10 bags Age of first use: 16 Date of last use: 06/05/19 Cocaine Substance route: Injection Frequency: 1-2 times per week Amount used: 8 bags Age of first use: 14 Date of last use: 08/06/18 Alcohol Substance route: Oral Frequency: Daily Amount used: 2 BOTTLE WINE Age of first use: 14 Date of last use: 08/06/18 Family Disease History - Family Disease History Family Disease History: Heart Disease: Mother, Other: Father (DRUG AND ALCOHOL, ALIVE STILL DRINKS) Admission Physical Exam [facility] - Vital Signs Vital Signs: Vital Signs - 24 hr 08/06/18 11:35 Temperature 97 F L Pulse Rate 76 Respiratory 19 Rate Blood Pressure 116/76 - Physical General Appearance: Yes: Moderate Distress, Tremorous, Irritable, Sweating, Anxious HEENTM: Yes: Normal ENT Inspection, NEEL, Pharynx Normal Respiratory: Yes: Lungs Clear, Normal Breath Sounds, No Respiratory Distress, Other (history of asthma) Neck: Yes: Within Normal Limits, Supple, Trachea in good position Breast: Yes: Within Normal Limits Cardiology: Yes: Within Normal Limits, Regular Rhythm, Regular Rate, S1, S2 Abdominal: Yes: Normal Bowel Sounds, Non Tender, Flat, Soft, Organomegaly Genitourinary: Yes: Within Normal Limits Back: Yes: Muscle Spasm Musculoskeletal: Yes: Back pain, Muscle Pain Extremities: Yes: Tremors Neurological: Yes: 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-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 NML intact, Fully Oriented, Alert, Motor Strength 5/5 Integumentary: Yes: Dry, Rash (right lower leg), Track Allen Lymphatic: Yes: Within Normal Limits - Diagnostic (1) Alcohol dependence with uncomplicated withdrawal Current Visit: Yes Status: Acute (2) Bipolar disorder Current Visit: No Status: Acute Qualifiers: Active/Remission status: remission status unspecified Qualified Code(s): F31.9 - Bipolar disorder, unspecified (3) Dehydration Current Visit: No Status: Acute (4) Herniated disc Current Visit: No Status: Acute (5) IVDU (intravenous drug user) Current Visit: No Status: Acute (6) Insomnia Current Visit: No Status: Acute (7) Low back pain Current Visit: No Status: Acute Qualifiers: Chronicity: unspecified Back pain laterality: unspecified Sciatica presence: unspecified whether sciatica present Qualified Code(s): M54.5 - Low back pain (8) Weight loss Current Visit: No Status: Acute (9) Asthma Current Visit: No Status: Chronic (10) Heroin abuse Current Visit: Yes Status: Acute (11) Contact dermatitis Current Visit: Yes Status: Acute Cleared for Admission S - Detox or Rehab [facility] Level of Care: Medically Managed Detox Regimen/Protocol: Valium Breathalyzer - Breathalyzer Breathalyzer: 0 Urine Drug Screen - Test Device Lot number: [id number] Expiration date: 02/01/20 - Control Is test valid?: Yes - Results Drug screen NEGATIVE: No Urine drug screen results: JASMEET-Cocaine, MET-Methamphetamine, FEN-Fentanyl, MOP- Opiates Inpatient Rehab Admission - Rehab Decision to Admit Inpatient rehab admission?: No
[2018-08-06] MEDS ORDERED: MAG HYDROX/AL HYDROX/SIMETH 30 ML UNIT-DOSE CUP PO PRN (13:16)
[2018-08-06] MEDS ORDERED: METHOCARBAMOL 500 MG TABLET PO PRN (13:16)
[2018-08-06] MEDS ORDERED: hydrOXYzine PAMOATE 25 MG CAPSULE (FP) PO PRN (13:16)
[2018-08-06] MEDS ORDERED: MAGNESIUM CITRATE 300 ML BOTTLE PO PRN (13:16)
[2018-08-06] MEDS ORDERED: BISMUTH SUBSALICYLATE 524 MG/30 ML UD PO PRN (13:16)
[2018-08-06] MEDS ORDERED: MAGNESIUM HYDROX 2400MG/30ML ORAL SUSPENSION 30 ML CUP PO PRN (13:16)
[2018-08-06] MEDS ORDERED: MENTHOL/PHENOL 1 EACH UD MM PRN (13:16)
[2018-08-06] MEDS ORDERED: ACETAMINOPHEN 325 MG TABLET (FP) PO PRN ×2 (13:16)
[2018-08-06] MEDS ORDERED: ALBUTEROL SO4 8 GM HFA INHALER IH PRN (13:20)
[2018-08-06] MEDS ORDERED: METHADONE HCL 40 MG DISPERSABLE TABLET PO ONE (14:30)
[2018-08-06] MEDS: diazePAM 5 MG TABLET PO SCH ×2 (15:10→22:09)
[2018-08-06] MEDS: FLUOCINONIDE 0.05% CREAM (15 GM TUBE) TP SCH ×2 (15:10→22:10)
[2018-08-06 16:40] LABS: ALBUMIN 3.9 g/dl (3.4-5.0); BILIRUBIN,TOTAL 0.5 mg/dL (0.2-1); CALCIUM 8.8 mg/dL (8.5-10.1); CREATININE 0.8 mg/dL (0.55-1.3); POTASSIUM 3.9 mmol/L (3.5-5.1); TOT PROT 7.2 g/dl (6.4-8.2)
[2018-08-06 16:43] LABS: HEMATOCRIT 39.1 % (35.4-49); HEMOGLOBIN 12.6 GM/dL (11.7-16.9); MCH 26.8 pg (25.7-33.7); MCHC 32.3 g/dl (32.0-35.9); MEAN CELL VOLUME 82.8 fl (80-96); MEAN PLT VOLUME 8.2 fl (7.5-11.1); PLATELET COUNT 215 K/MM3 (134-434); RBC 4.72 M/mm3 (4.00-5.60); WHITE BLOOD COUNT 4.9 K/mm3 (4.0-10.0)
[2018-08-06 17:02] LABS: PH,URINE 6.5 (5.0-8.0); URINE APPEARANCE CLEAR; URINE BILIRUBIN NEGATIVE (NEGATIVE); URINE COLOR YELLOW; URINE GLUCOSE (UA) NEGATIVE (NEGATIVE); URINE KETONE NEGATIVE (NEGATIVE); URINE LEUK ESTERASE NEGATIVE (NEGATIVE); URINE NITRITE NEGATIVE (NEGATIVE); URINE PROTEIN NEGATIVE (NEGATIVE); URINE UROBILINOGEN 0.2 mg/dL (0.2-1.0)
[2018-08-06] MEDS: IBUPROFEN 400 MG TABLET (FP) PO PRN (17:07)
[2018-08-06] MEDS: diazePAM 5 MG TABLET PO PRN (19:22)
[2018-08-06] MEDS: THIAMINE HCL 100 MG TABLET (FP) PO SCH (22:09)
[2018-08-06] MEDS: GABAPENTIN 400 MG CAPSULE (FP) PO SCH (22:09)
[2018-08-06] MEDS: MELATONIN 5 MG TABLETS PO PRN (22:10)
[2018-08-07] MEDS: diazePAM 5 MG TABLET PO PRN ×3 (01:35→17:13)
[2018-08-07] MEDS: diazePAM 5 MG TABLET PO SCH ×3 (06:20→21:18)
[2018-08-07] MEDS: METHADONE HCL 40 MG DISPERSABLE TABLET PO SCH (07:09)
--- NOTE | 2018-08-07 09:59 | PN ---
S CIWA - CIWA Score Nausea/Vomitin Muscle Tremors: 2 Anxiety: 2 Agitation: 2 Paroxysmal Sweats: 1-Minimal Palms Moist Orientation: 0-Oriented Tacttile Disturbances: 1-Very Mild Itch/Numbness Auditory Disturbances: 1-Very Mild Visual Disturbances: 0-None Headache: 2-Mild CIWA-Ar Total Score: 13 BHS Progress Note (SOAP) Subjective: alert,irritable,anxious,interrupted sleep,tremor Objective: 08/07/18 09:57 Vital Signs Temperature 97.7 F 08/07/18 09:10 Pulse Rate 64 08/07/18 09:10 Respiratory Rate 18 08/07/18 09:10 Blood Pressure 101/59 L 08/07/18 09:10 O2 Sat by Pulse Oximetry (%) Laboratory Last Values WBC 4.9 K/mm3 (4.0-10.0) 08/06/18 13:33 RBC 4.72 M/mm3 (4.00-5.60) 08/06/18 13:33 Hgb 12.6 GM/dL (11.7-16.9) 08/06/18 13:33 Hct 39.1 % (35.4-49) 08/06/18 13:33 MCV 82.8 fl (80-96) 08/06/18 13:33 MCH 26.8 pg (25.7-33.7) 08/06/18 13:33 MCHC 32.3 g/dl (32.0-35.9) 08/06/18 13:33 RDW 15.0 % (11.9-15.9) 08/06/18 13:33 Plt Count 215 K/MM3 (134-434) D 08/06/18 13:33 MPV 8.2 fl (7.5-11.1) 08/06/18 13:33 Sodium 141 mmol/L (136-145) 08/06/18 13:33 Potassium 3.9 mmol/L (3.5-5.1) 08/06/18 13:33 Chloride 105 mmol/L (98-107) 08/06/18 13:33 Carbon Dioxide 30 mmol/L (21-32) 08/06/18 13:33 Anion Gap 6 MMOL/L (8-16) L 08/06/18 13:33 BUN 18 mg/dL (7-18) 08/06/18 13:33 Creatinine 0.8 mg/dL (0.55-1.3) 08/06/18 13:33 Est GFR (CKD-EPI)AfAm 126.81 08/06/18 13:33 Est GFR (CKD-EPI)NonAf 109.41 08/06/18 13:33 Random Glucose 57 mg/dL (74-106) L 08/06/18 13:33 Calcium 8.8 mg/dL (8.5-10.1) 08/06/18 13:33 Total Bilirubin 0.5 mg/dL (0.2-1) 08/06/18 13:33 AST 26 U/L (15-37) 08/06/18 13:33 ALT 45 U/L (13-61) 08/06/18 13:33 Alkaline Phosphatase 73 U/L (45-117) 08/06/18 13:33 Total Protein 7.2 g/dl (6.4-8.2) 08/06/18 13:33 Albumin 3.9 g/dl (3.4-5.0) 08/06/18 13:33 Urine Color Yellow 08/06/18 15:40 Urine Appearance Clear 08/06/18 15:40 Urine pH 6.5 (5.0-8.0) 08/06/18 15:40 Ur Specific [place] 1.025 (1.010-1.035) 08/06/18 15:40 Urine Protein Negative (NEGATIVE) 08/06/18 15:40 Urine Glucose (UA) Negative (NEGATIVE) 08/06/18 15:40 Urine Ketones Negative (NEGATIVE) 08/06/18 15:40 Urine Blood Negative (NEGATIVE) 08/06/18 15:40 Urine Nitrite Negative (NEGATIVE) 08/06/18 15:40 Urine Bilirubin Negative (NEGATIVE) 08/06/18 15:40 Urine Urobilinogen 0.2 mg/dL (0.2-1.0) 08/06/18 15:40 Ur Leukocyte Esterase Negative (NEGATIVE) 08/06/18 15:40 RPR Titer Nonreactive (NONREACTIVE) 08/06/18 13:33 HIV 1&2 Antibody Screen Negative 08/06/18 13:33 HIV P24 Antigen Negative 08/06/18 13:33 Assessment: 08/07/18 09:58 withdrawal symptom Plan: continue detox,bgm in am,initial glucose is 57
[2018-08-07] MEDS ORDERED: PRENATAL VITAMINS W/ FOLIC ACID TABLET (FP) PO SCH (10:00)
[2018-08-07] MEDS ORDERED: CYCLOBENZAPRINE HCL 10 MG TABLET (FP) PO SCH (10:00)
[2018-08-07] MEDS: GABAPENTIN 400 MG CAPSULE (FP) PO SCH ×2 (10:19→22:16)
[2018-08-07] MEDS: IBUPROFEN 400 MG TABLET (FP) PO PRN (10:20)
[2018-08-07] MEDS: FLUOCINONIDE 0.05% CREAM (15 GM TUBE) TP SCH ×2 (10:20→22:17)
--- NOTE | 2018-08-07 10:45 | CONSULT ---
[facility] Psychiatric Consult - Data Date of interview: 08/07/18 Admission source: Self-referred Identifying data: Mr Mazariegos is a 43 years old single , unemployed receiving SSI, domiciled seeking detox treatment for alcohol, opioid and cocaine Substance Abuse History: Reports history of alcohol, heroin and cocaine use. Refer to addiction counselor's summary for further information Medical History: Significant for bronchial asthma, hepatitis C diagnosed in 1997 , low back pain/ herniated disc sciatica, neuropathy and history of anemia. Patient is on methadone 40 mg/day from [facility]. Smokes 3 cigarettes daily Psychiatric History: Reports that his first psychiatric contact was around age 10 when he was diagnosed with ADHD & MDD. Reports that his first psychiatric hospitalization at age 13. Reports multiple psychiatric hospitalizations in facilities in [place], [place] and [place], [place]. Most recent admission was in 2007 to [facility] in [facility] for depression. Reports receiving outpatient psychiatric treatment at [facility] near [facility] and he is currently prescribed Wellbutrin XL 150 mg/day, Gabapentin 800 mg/bid, Remeron 15 mg/hs, Ambien 10 mg/hs and Klonopin 1 mg/ bid. External medication history from Pharmacy confirmed 30 days supply of scripts for these medications except Remeron filled on 07/19/18 except Gabapentin filled on 08/02/18. Reports 2 previous suicidal attempts via overdose on pills as a teenager and age 21. At present, reports feeling anxious and sleeping poorly Physical/Sexual Abuse/Trauma History: Denies history of emotional, physical or sexual abuse as well as DV relationship. No service Additional Comment: Reports history of multiple previous arrests including 4 felony convictions. Denies being on parole/probation Mental Status Exam - Mental Status Exam Alert and Oriented to: Time, Place, Person Cognitive Function: Fair Patient Appearance: Well Groomed Mood: Anxious Affect: Appropriate Patient Behavior: Cooperative Speech Pattern: Clear Voice Loudness: Normal Thought Process: Intact, Goal Oriented Thought Disorder: Not Present Hallucinations: Denies Suicidal Ideation: Denies Homicidal Ideation: Denies Insight/Judgement: Poor Sleep: Poorly Appetite: Fair Muscle strength/Tone: Normal Gait/Station: Normal Psychiatric Findings - Problem List ([place] 1, 2,3) (1) ADHD (attention deficit hyperactivity disorder) Current Visit: No Status: Chronic Qualifiers: Attention deficit-hyperactivity disorder type: unspecified Qualified Code(s ): F90.9 - Attention-deficit hyperactivity disorder, unspecified type Comment: Historical diagnosis. (2) MDD (major depressive disorder) Current Visit: No Status: Chronic Comment: As per self-report and records.On medications. (3) Substance-induced anxiety disorder Current Visit: Yes Status: Acute (4) Substance-induced sleep disorder Current Visit: Yes Status: Acute (5) Alcohol dependence with uncomplicated withdrawal Current Visit: Yes Status: Acute (6) Opioid dependence with withdrawal Current Visit: No Status: Acute (7) Cocaine dependence Current Visit: No Status: Acute Qualifiers: Substance use status: uncomplicated Qualified Code(s): F14.20 - Cocaine dependence, uncomplicated (8) Nicotine dependence Current Visit: No Status: Chronic Qualifiers: Nicotine product type: cigarettes Substance use status: in withdrawal Qualified Code(s): F17.213 - Nicotine dependence, cigarettes, with withdrawal (9) Asthma Current Visit: No Status: Chronic (10) History of anemia Current Visit: No Status: Resolved (11) Hepatitis C Current Visit: Yes Status: Chronic (12) Herniated disc Current Visit: No Status: Chronic (13) Low back pain Current Visit: No Status: Chronic Qualifiers: Chronicity: unspecified Back pain laterality: unspecified Sciatica presence: unspecified whether sciatica present Qualified Code(s): M54.5 - Low back pain (14) Sciatica Current Visit: No Status: Acute Qualifiers: Laterality: unspecified laterality Qualified Code(s): M54.30 - Sciatica, unspecified side (15) Neuropathy Current Visit: No Status: Chronic - Initial Treatment Plan Initial Treatment Plan: 1) Continue Wellbutrin XL 150 mg po daily, Gabapentin 800 mg po BID,. 2) Start Remeron 15 mg po HS. 3) Continue inpatient detoxification
[2018-08-07] MEDS ORDERED: MIRTAZAPINE 15 MG TABLET (FP) PO SCH (22:00)
[2018-08-07] MEDS: THIAMINE HCL 100 MG TABLET (FP) PO SCH (22:16)
[2018-08-07] MEDS: MELATONIN 5 MG TABLETS PO PRN (22:17)
[2018-08-08] MEDS: METHADONE HCL 40 MG DISPERSABLE TABLET PO SCH (05:19)
[2018-08-08] MEDS ORDERED: diazePAM 5 MG TABLET PO ONE (06:00)
[2018-08-08] MEDS: diazePAM 5 MG TABLET PO PRN (07:55)
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
[2018-08-08 09:13] VITALS: BP 121/78; PULSE 67; TEMP 98.2
== END 2018-08-08 09:30 | disposition home or self-care (01) | DRG 773 ==
LOC: YASAS 10:00 → Y6N 13:22
PROVIDERS: ADMIT Surgery; ATTEND Surgery
PROC: HZ2ZZZZ Detoxification Services for Substance Abuse Treatment (ICD-10-PCS; principal; 2018-08-06)
DX: F11.23 Opioid dependence with withdrawal (principal); F10.230 Alcohol dependence with withdrawal, uncomplicated; F13.230 Sedative, hypnotic or anxiolytic dependence with withdrawal, uncomplicated; F14.20 Cocaine dependence, uncomplicated; F12.20 Cannabis dependence, uncomplicated; F19.24 Other psychoactive substance dependence with psychoactive substance-induced mood disorder; F19.280 Other psychoactive substance dependence with psychoactive substance-induced anxiety disorder; F19.282 Other psychoactive substance dependence with psychoactive substance-induced sleep disorder; F31.9 Bipolar disorder, unspecified; F90.9 Attention-deficit hyperactivity disorder, unspecified type; F41.8 Other specified anxiety disorders; B18.2 Chronic viral hepatitis C; E86.0 Dehydration; G47.00 Insomnia, unspecified; K21.9 Gastro-esophageal reflux disease without esophagitis; L25.9 Unspecified contact dermatitis, unspecified cause; D64.9 Anemia, unspecified; M54.40 Lumbago with sciatica, unspecified side; J45.909 Unspecified asthma, uncomplicated; Z91.5 Personal history of self-harm
CPT/HCPCS: 36415; 80053; 81003; 82962; 85027; 86593; 87389

== ENCOUNTER 2018-12-10 10:35 | Inpatient (IN) | payer OTHER ==
[2018-12-10 11:13] VITALS: BMI 21.4
--- NOTE | 2018-12-10 12:13 | HP ---
COWS - Scale Resting Pulse: 1= ID [id number] Sweatin= Chills/Flushing Restless Observation: 1= Difficult to Sit Still Pupil Size: 0= Normal to Room Light Bone or Joint Aches: 1= Mild Discomfort Runny Nose/ Eye Tearin= Runny Nose/Eyes GI Upset > 30mins: 2= Nausea/Diarrhea Tremor Observation: 2= Slight Tremor Visible Yawning Observation: 0= None Anxiety or Irritability: 1=Feels Anxious/Irritable Goose Flesh Skin: 0=Smooth Skin COWS Score: 11 CIWA Score - Admission Criteria [facility] Guidelines: Admission for Medically Managed Detox: Requires at least one of the followin. CIWA greater than 12 2. Seizures within the past 24 hours 3. Delirium tremens within the past 24 hours 4. Hallucinations within the past 24 hours 5. Acute intervention needed for co occurring medical disorder 6. Acute intervention needed for co occurring psychiatric disorder 7. Severe withdrawal that cannot be handled at a lower level of care (continued vomiting, continued diarrhea, abnormal vital signs) requiring intravenous medication and/or fluids 8. Admitting History and Physical - Smoking History Smoking history: Current every day smoker Have you smoked in the past 12 months: Yes Aproximately how many cigarettes per day: 3 - Alcohol/Substance Use Hx Alcohol Use: Yes Admission ROS [facility] Chief Complaint: Aydin Mazariegos is a 43 year old male presenting for heroin detox. Allergies/Adverse Reactions: Allergies Allergy/AdvReac Type Severity Reaction Status Date / Time penicillin G Allergy Severe Rash Verified 12/10/18 11:05 History of Present Illness: Aydin Mazariegos is a 43 year old male presenting for heroin detox. Heroin: 4-6 bags/day. Daily user. Last use was 2AM on morning of admission. Endorses IVDU. Denies abscesses or infections. Has had 2 overdoses in the past. Does not have a Narcan kit but states knows how to use it. Stated that he brought street methadone 1 week prior. Withdrawal symptoms: anxiety, pains, tremors, vomiting. Previously was on methadone program, highest dose 85mg. Cocaine: 1-2 "dimes" per day. IVDU. Has been to detox in the past. denies rehab. States plans after detox are to move to [place]. Previous time he was clean for 3 years he was living in [place]. States did not want to rejoin a methadone program. Not interested in suboxone. Medical History: asthma, acid reflux, Hep C (active), arthrits, herniated disc Surgical History: denies Psychiatric History: anxiety, depression, bipolar Smokin-3 cigarettes/ daily Social: lives in an apartment, lives alone. Unemployed. SSI. In contact with family. No children Utox: JASMEET, FEN, MOP, OXY, MTD NORBERTO: 0.000 Will be admitted for heroin detox and progressing withdrawal symptoms. Recent use of heroin, will have increasing withdrawal symptoms in setting of IVDU. Told to speak with counselor regarding options after detox. Counseled on possibility of starting on methadone or suboxone program. Exam Limitations: No Limitations - Ebola screening Have you traveled outside of the country in the last 21 days: No Have you had contact with anyone from an Ebola affected area: No - Review of Systems Constitutional: Chills, Loss of Appetite EENT: reports: Other (rhinnorhea) Respiratory: reports: No Symptoms reported Cardiac: reports: No Symptoms Reported GI: reports: Nausea : reports: No Symptoms Reported Musculoskeletal: reports: Back Pain, Neck Pain Integumentary: reports: Dryness, Pruritus (on lower extremities) Endocrine: reports: No Symptoms Reported Hematology: reports: No Symptoms Reported Psychiatric: reports: Anxious, Depressed Patient History - Patient Medical History Hx Anemia: Yes (no med) Hx Asthma: Yes (on albuterol inhaler) Hx Chronic Obstructive Pulmonary Disease (COPD): No Hx Cancer: No Hx Cardiac Disorders: No Hx Congestive Heart Failure: No Hx Hypertension: No Hx Hypercholesterolemia: No Hx Pacemaker: No HX Cerebrovascular Accident: No Hx Seizures: No Hx Dementia: No Hx Diabetes: No Hx Gastrointestinal Disorders: Yes (acid reflux) Hx Liver Disease: Yes (Hepatitis C (diagnosed 2011); Undetectable Viral Load without treatment.) Hx Genitourinary Disorders: No Hx Sexually Transmitted Disorders: No Hx Renal Disease (ESRD): No Hx Thyroid Disease: No Hx Human Immunodeficiency Virus (HIV): No (last 2017 negative) Hx Hepatitis C: Yes (Diagnosed 2011); Undetectable Viral Load without treatment. ) Hx Depression: Yes Hx Suicide Attempt: Yes (pill overdose at age 21. Pt denies SI and any recent attempts of suicide) Hx Bipolar Disorder: Yes (On meds.) Hx Schizophrenia: No - Patient Surgical History Past Surgical History: No Hx Neurologic Surgery: No Hx Cataract Extraction: No Hx Cardiac Surgery: No Hx Lung Surgery: No Hx Breast Surgery: No Hx Breast Biopsy: No Hx Abdominal Surgery: No Hx Appendectomy: No Hx Cholecystectomy: No Hx Genitourinary Surgery: No Hx Section: No Hx Orthopedic Surgery: No Anesthesia Reaction: No - PPD History Previous Implant?: Yes Documented Results: Negative w/o proof Date: 03/06/18 Results: 0 mm PPD to be Administered?: Yes - Smoking Cessation Smoking history: Current every day smoker Have you smoked in the past 12 months: Yes Aproximately how many cigarettes per day: 3 Cigars Per Day: 0 Hx Chewing Tobacco Use: No Initiated information on smoking cessation: Yes 'Breaking Loose' booklet given: 12/10/18 - Substance & Tx. History Hx Substance Use: Yes Substance Use Type: Cocaine, Heroin - Substances abused Heroin Substance route: Injection Frequency: Daily Amount used: 3-4 bags Age of first use: 16 Date of last use: 12/09/18 Cocaine Substance route: Injection Frequency: Daily Amount used: 1 dimes Age of first use: 16 Date of last use: 12/10/18 Alcohol Substance route: Oral Frequency: No use in 30 days Amount used: 1 pint liquor Age of first use: 14 Date of last use: 10/09/18 Admission Physical Exam BHS - Vital Signs Vital Signs: Vital Signs - 24 hr 12/10/18 12/10/18 11:05 11:47 Temperature 97.3 F L 97.3 F L Pulse Rate 81 81 Respiratory 18 18 Rate Blood Pressure 135/89 135/89 - Physical General Appearance: Yes: Disheveled, Mild Distress HEENTM: Yes: EOMI, Normocephalic, Normal Voice, NEEL, Pharynx Normal Respiratory: Yes: Chest Non-Tender, Lungs Clear, Normal Breath Sounds, No Respiratory Distress, No Accessory Muscle Use Neck: Yes: No masses,lesions,Nodules, Trachea in good position Breast: Yes: Breast Exam Deferred Cardiology: Yes: Regular Rhythm, Regular Rate, S1, S2 Abdominal: Yes: Normal Bowel Sounds, Non Tender, Flat, Soft Genitourinary: Yes: Within Normal Limits Back: Yes: Normal Inspection Musculoskeletal: Yes: full range of Motion, Back pain (noted paraspinal tenderness) Extremities: Yes: Normal Capillary Refill, Normal Range of Motion, Non-Tender, Other (toe on R leg with old blood underneath nail, site of former blister) Neurological: Yes: 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 NML intact, Alert, Motor Strength 5/5 Integumentary: Yes: Normal Color, Dry, Warm, Track Allen (on bilateral AC), Other (excoriations noted on rash on R leg) - Diagnostic (1) Bipolar disorder Current Visit: No Status: Acute Qualifiers: Active/Remission status: remission status unspecified Qualified Code(s): F31.9 - Bipolar disorder, unspecified (2) IVDU (intravenous drug user) Current Visit: No Status: Acute (3) Insomnia Current Visit: No Status: Acute (4) Substance induced mood disorder Current Visit: No Status: Acute (5) Substance-induced anxiety disorder Current Visit: No Status: Acute (6) Anxiety and depression Current Visit: No Status: Chronic (7) Asthma Current Visit: No Status: Chronic (8) Back pain Current Visit: No Status: Chronic Qualifiers: Back pain laterality: midline (9) Cocaine dependence Current Visit: No Status: Chronic Qualifiers: Substance use status: uncomplicated Qualified Code(s): F14.20 - Cocaine dependence, uncomplicated (10) Gastroesophageal reflux disease Current Visit: No Status: Chronic (11) Hepatitis C Current Visit: No Status: Chronic Qualifiers: Viral hepatitis chronicity: chronic Hepatic coma status: without hepatic coma Qualified Code(s): B18.2 - Chronic viral hepatitis C (12) Heroin abuse Current Visit: No Status: Chronic (13) History of herniated intervertebral disc Current Visit: No Status: Chronic Comment: Thoracic and Lumbar Spinal Areas. (14) Nicotine dependence Current Visit: No Status: Chronic Qualifiers: Nicotine product type: cigarettes Substance use status: in withdrawal Qualified Code(s): F17.213 - Nicotine dependence, cigarettes, with withdrawal Breathalyzer - Breathalyzer Breathalyzer: 0 Urine Drug Screen - Test Device Lot number: [id number] Expiration date: 07/31/20 - Control Is test valid?: Yes - Results Drug screen NEGATIVE: No Urine drug screen results: JASMEET-Cocaine, FEN-Fentanyl, MOP-Opiates, OXY-Oxycodone , MTD-Methadone Inpatient Rehab Admission - Rehab Decision to Admit Inpatient rehab admission?: No
[2018-12-10] MEDS ORDERED: METHOCARBAMOL 500 MG TABLET PO PRN (12:40)
[2018-12-10] MEDS ORDERED: IBUPROFEN 400 MG TABLET (FP) PO PRN (12:40)
[2018-12-10] MEDS ORDERED: MAG HYDROX/AL HYDROX/SIMETH 30 ML UNIT-DOSE CUP PO PRN (12:40)
[2018-12-10] MEDS ORDERED: METHADONE HCL 10 MG TABLET (FOR DETOX USE ONLY) PO ONE (12:40)
[2018-12-10] MEDS ORDERED: MAGNESIUM HYDROX 2400MG/30ML ORAL SUSPENSION 30 ML CUP PO PRN (12:40)
[2018-12-10] MEDS ORDERED: MAGNESIUM CITRATE 300 ML BOTTLE PO PRN (12:40)
[2018-12-10] MEDS ORDERED: hydrOXYzine PAMOATE 25 MG CAPSULE (FP) PO PRN (12:40)
[2018-12-10] MEDS ORDERED: MENTHOL/PHENOL 1 EACH UD MM PRN (12:40)
[2018-12-10] MEDS ORDERED: ACETAMINOPHEN 325 MG TABLET (FP) PO PRN ×2 (12:40)
[2018-12-10] MEDS ORDERED: cloNIDine HCL 0.1 MG TABLET PO PRN (12:40)
[2018-12-10] MEDS ORDERED: BISMUTH SUBSALICYLATE 524 MG/30 ML UD PO PRN (12:40)
[2018-12-10] MEDS ORDERED: ALBUTEROL SO4 8 GM HFA INHALER IH PRN (12:47)
--- NOTE | 2018-12-10 13:40 | PN ---
Teaching Attending Note Name of Resident: Boy Rodriguez ATTENDING PHYSICIAN STATEMENT I saw and evaluated the patient. I reviewed the resident's note and discussed the case with the resident. I agree with the resident's findings and plan as documented. SUBJECTIVE: I agree with resident's subjective findings. OBJECTIVE: I agree with resident's objective findings. ASSESSMENT AND PLAN: Patient was appropriate for admission to detox.
[2018-12-10 17:31] LABS: HEMATOCRIT 40.1 % (35.4-49); HEMOGLOBIN 13.1 GM/dL (11.7-16.9); MCH 27.1 pg (25.7-33.7); MCHC 32.6 g/dl (32.0-35.9); MEAN CELL VOLUME 83.1 fl (80-96); MEAN PLT VOLUME 8.7 fl (7.5-11.1); PLATELET COUNT 210 K/MM3 (134-434); RBC 4.83 M/mm3 (4.00-5.60); RDW 13.7 % (11.9-15.9); WHITE BLOOD COUNT 5.3 K/mm3 (4.0-10.0)
[2018-12-10 17:38] LABS: BILIRUBIN,TOTAL 0.5 mg/dL (0.2-1); BLOOD UREA NITROGEN 16.8 mg/dL (7-18); CALCIUM 8.7 mg/dL (8.5-10.1); CREATININE 0.8 mg/dL (0.55-1.3); POTASSIUM 4.1 mmol/L (3.5-5.1); TOT PROT 7.5 g/dl (6.4-8.2)
[2018-12-10] MEDS ORDERED: GABAPENTIN 300 MG CAPSULE (FP) PO SCH (22:00)
[2018-12-10] MEDS: THIAMINE HCL 100 MG TABLET (FP) PO SCH (22:16)
[2018-12-10] MEDS ORDERED: GABAPENTIN 400 MG CAPSULE (FP) PO SCH (22:38)
[2018-12-10] MEDS: MELATONIN 5 MG TABLETS PO PRN (23:06)
[2018-12-10] MEDS: GABAPENTIN 400 MG CAPSULE (FP) PO SCH (23:07)
[2018-12-11] MEDS ORDERED: METHADONE HCL 5 MG TABLET (FOR DETOX USE ONLY) ONE (09:27)
[2018-12-11] MEDS ORDERED: METHADONE HCL 10 MG TABLET (FOR DETOX USE ONLY) ONE (09:27)
[2018-12-11] MEDS: PANTOPRAZOLE 20 MG TABLET (FP) PO SCH (09:54)
[2018-12-11] MEDS: PRENATAL VITAMINS W/ FOLIC ACID TABLET (FP) PO SCH (09:54)
[2018-12-11] MEDS: GABAPENTIN 400 MG CAPSULE (FP) PO SCH ×2 (09:54→22:13)
[2018-12-11] MEDS ORDERED: METHADONE (DETOX) 20 MG, METHADONE (DETOX) 5 MG PO ONE (10:00)
--- NOTE | 2018-12-11 10:10 | CONSULT ---
[facility] Psychiatric Consult - Data Date of interview: 12/11/18 Admission source: Self-referred Identifying data: Mr Mazariegos is a 43 years old single , unemployed receiving SSI, domiciled seeking detox treatment for alcohol, opioid and cocaine Substance Abuse History: Reports history of alcohol, heroin and cocaine use. Refer to addiction counselor's summary for further information Medical History: Significant for bronchial asthma, hepatitis C diagnosed in 1997 , low back pain/ herniated disc sciatica, neuropathy and history of anemia. Patient is on methadone 40 mg/day from [facility]. Smokes 3 cigarettes daily Psychiatric History: Patient is known to television writer from an encounter during an admission to this facility in August 2018. Historical narrative remains consistent. He reports that his first psychiatric contact was around age 10 when he was diagnosed with ADHD & MDD. Reports that his first psychiatric hospitalization at age 13. Reports multiple psychiatric hospitalizations in facilities in [place], [place] and [place], [place]. Most recent admission was in 2007 to [facility] in [facility] for depression. Reports receiving outpatient psychiatric treatment at [facility] near [facility] and he saw his psychiatrist last month. Report that he is currently prescribed Wellbutrin XL 150 mg/day, Buspirone 15 mg/bid. This is confirmed by calling Pharmacy Where fillled scrpts for these medications on 10/14/18. During recent admission to this facility, patient was seen by television writer on 08/07/18 and he was prescribed Wellbutrin XL 150 mg/day, Remeron 15 mg/hs and Gabapentin 800 mg/bid. Reports 2 previous suicidal attempts via overdose on pills as a teenager and age 21. At present, denies experiencing depressive and anxiety symptoms, S/H ideations. However, reports sleeping poorly Physical/Sexual Abuse/Trauma History: Denies history of emotional, physical or sexual abuse as well as DV relationship. No service Additional Comment: Reports history of multiple previous arrests including 4 felony convictions. Denies being on parole/probation Mental Status Exam - Mental Status Exam Alert and Oriented to: Time, Place, Person Cognitive Function: Fair Patient Appearance: Disheveled Mood: Hopeful, Euthymic Affect: Appropriate Patient Behavior: Cooperative Speech Pattern: Clear Voice Loudness: Normal Thought Process: Intact, Goal Oriented Thought Disorder: Not Present Hallucinations: Denies Suicidal Ideation: Denies Homicidal Ideation: Denies Insight/Judgement: Poor Sleep: Poorly Appetite: Fair Muscle strength/Tone: Normal Gait/Station: Normal Psychiatric Findings - Problem List ([place] 1, 2,3) (1) ADHD (attention deficit hyperactivity disorder) Current Visit: No Status: Chronic Qualifiers: Attention deficit-hyperactivity disorder type: unspecified Qualified Code(s ): F90.9 - Attention-deficit hyperactivity disorder, unspecified type Comment: Historical diagnosis. (2) MDD (major depressive disorder) Current Visit: No Status: Chronic Comment: As per self-report and records.On medications. (3) Substance-induced sleep disorder Current Visit: No Status: Acute (4) Opioid dependence, uncomplicated Current Visit: Yes Status: Acute (5) Cocaine dependence Current Visit: No Status: Acute Qualifiers: Substance use status: uncomplicated Qualified Code(s): F14.20 - Cocaine dependence, uncomplicated (6) Alcohol abuse Current Visit: Yes Status: Acute (7) Nicotine dependence Current Visit: No Status: Chronic Qualifiers: Nicotine product type: cigarettes Substance use status: in withdrawal Qualified Code(s): F17.213 - Nicotine dependence, cigarettes, with withdrawal (8) Asthma Current Visit: No Status: Chronic (9) Hepatitis C Current Visit: No Status: Chronic Qualifiers: Viral hepatitis chronicity: chronic Hepatic coma status: without hepatic coma Qualified Code(s): B18.2 - Chronic viral hepatitis C (10) Neuropathy Current Visit: No Status: Chronic (11) Sciatica Current Visit: No Status: Acute Qualifiers: Laterality: unspecified laterality Qualified Code(s): M54.30 - Sciatica, unspecified side (12) Back pain Current Visit: No Status: Chronic Qualifiers: Back pain laterality: midline - Initial Treatment Plan Initial Treatment Plan: 1) Resume Wellbutrin XL 150 mg po daily and Buspar 15 mg po BID. 2) Start Remeron 15 mg po HS. 3) Continue inpatient detoxification
--- NOTE | 2018-12-11 12:55 | PN ---
[facility] COWS - Scale Resting Pulse: 0= [place] 80 or Below Sweatin= Chills/Flushing Restless Observation: 1= Difficult to Sit Still Pupil Size: 0= Normal to Room Light Bone or Joint Aches: 2= Severe Diffuse Aches Runny Nose/ Eye Tearin= Runny Nose/Eyes GI Upset > 30mins: 0= None Tremor Observation of Outstretched Hands: 1= Tremor [place], Not Seen Yawning Observation: 1= 1-2x During Session Anxiety or Irritability: 2=Irritable/Anxious Goose Flesh Skin: 0=Smooth Skin COWS Score: 10 BHS Progress Note (SOAP) Subjective: sweats shakes interrupted sleep body aches Objective: 12/11/18 12:54 Vital Signs Temperature 97.9 F 12/11/18 09:49 Pulse Rate 70 12/11/18 09:49 Respiratory Rate 18 12/11/18 09:49 Blood Pressure 126/77 12/11/18 09:49 O2 Sat by Pulse Oximetry (%) Laboratory Tests 12/10/18 12/10/18 12/10/18 13:10 13:10 13:10 WBC 5.3 RBC 4.83 Hgb 13.1 Hct 40.1 MCV 83.1 MCH 27.1 MCHC 32.6 RDW 13.7 Plt Count 210 MPV 8.7 Sodium 138 Potassium 4.1 Chloride 102 Carbon Dioxide 30 Anion Gap 6 L BUN 16.8 Creatinine 0.8 Est GFR (CKD-EPI)AfAm 126.81 Est GFR (CKD-EPI)NonAf 109.41 Random Glucose 90 Calcium 8.7 Total Bilirubin 0.5 AST 23 ALT 25 Alkaline Phosphatase 86 Total Protein 7.5 Albumin 4.0 RPR Titer Nonreactive labs noted aaox3 ambulating no acute distress Assessment: 12/11/18 12:55 withdrawals Plan: continue detox increase fluids
[2018-12-11] MEDS ORDERED: MIRTAZAPINE 15 MG TABLET (FP) PO SCH (22:00)
[2018-12-11] MEDS: THIAMINE HCL 100 MG TABLET (FP) PO SCH (22:13)
[2018-12-11] MEDS: MELATONIN 5 MG TABLETS PO PRN (22:14)
[2018-12-12] MEDS: GABAPENTIN 400 MG CAPSULE (FP) PO SCH (09:41)
[2018-12-12] MEDS: PRENATAL VITAMINS W/ FOLIC ACID TABLET (FP) PO SCH (09:41)
[2018-12-12] MEDS: PANTOPRAZOLE 20 MG TABLET (FP) PO SCH (09:41)
[2018-12-12] MEDS ORDERED: METHADONE HCL 10 MG TABLET (FOR DETOX USE ONLY) PO ONE (10:00)
[2018-12-12 13:14] VITALS: BP 120/83; PULSE 80; TEMP 98.3
--- NOTE | 2018-12-12 13:22 | DS ---
[facility] Detox Discharge Summary Admission Date: 12/10/18 - History Present History: Alcohol Dependence, Cocaine Dependence, Opioid Dependence - Physical Exam Results Vital Signs: Vital Signs Temperature 98.3 F 12/12/18 13:13 Pulse Rate 80 12/12/18 13:13 Respiratory Rate 18 12/12/18 13:13 Blood Pressure 120/83 12/12/18 13:13 O2 Sat by Pulse Oximetry (%) - Treatment Hospital Course: Detox Protocol Followed - Medication Discharge Medications: Ambulatory Orders Gabapentin [Neurontin -] 800 mg PO BID 01/19/14 Omeprazole [Prilosec] 20 mg PO DAILY 07/27/15 Mirtazapine [Remeron -] 15 mg PO HS #30 tablet 05/29/17 Albuterol Sulfate Inhaler - [Ventolin HFA Inhaler -] 2 inh PO Q4H PRN #1 inhaler 04/22/18 Buspirone HCl 15 mg PO BID 12/10/18 Naproxen [Naprosyn -] 500 mg PO DAILY PRN 12/10/18 - Diagnosis (1) Alcohol abuse Current Visit: Yes Status: Chronic (2) Opioid dependence, uncomplicated Current Visit: Yes Status: Chronic (3) Bipolar disorder Current Visit: Yes Status: Chronic Qualifiers: Active/Remission status: remission status unspecified Qualified Code(s): F31.9 - Bipolar disorder, unspecified (4) Cocaine dependence Current Visit: Yes Status: Acute Qualifiers: Substance use status: uncomplicated Qualified Code(s): F14.20 - Cocaine dependence, uncomplicated - AMA Did Patient Leave Against Medical Advice: Yes (he states, " I want to leave " )
[2018-12-13] MEDS ORDERED: METHADONE (DETOX) 10 MG, METHADONE (DETOX) 5 MG PO ONE (10:00)
[2018-12-14] MEDS ORDERED: METHADONE HCL 10 MG TABLET (FOR DETOX USE ONLY) PO ONE (10:00)
[2018-12-15] MEDS ORDERED: METHADONE HCL 5 MG TABLET (FOR DETOX USE ONLY) PO ONE (06:00)
== END 2018-12-12 14:01 | disposition left against medical advice (07) | DRG 770 ==
LOC: YASAS 10:35 → Y6N 13:26
PROVIDERS: ADMIT Allergy & Immunology; ATTEND Allergy & Immunology
PROC: HZ2ZZZZ Detoxification Services for Substance Abuse Treatment (ICD-10-PCS; principal; 2018-12-10)
DX: F11.23 Opioid dependence with withdrawal (principal); F10.10 Alcohol abuse, uncomplicated; F14.20 Cocaine dependence, uncomplicated; F17.210 Nicotine dependence, cigarettes, uncomplicated; F19.282 Other psychoactive substance dependence with psychoactive substance-induced sleep disorder; F31.9 Bipolar disorder, unspecified; F90.9 Attention-deficit hyperactivity disorder, unspecified type; K21.9 Gastro-esophageal reflux disease without esophagitis; J45.909 Unspecified asthma, uncomplicated; B18.2 Chronic viral hepatitis C; G62.9 Polyneuropathy, unspecified; M54.9 Dorsalgia, unspecified; L85.3 Xerosis cutis; L29.8 Other pruritus; M54.30 Sciatica, unspecified side; Z88.0 Allergy status to penicillin
CPT/HCPCS: 36415; 80053; 85027; 86593

== ENCOUNTER 2019-03-11 09:12 | Inpatient (IN) | payer OTHER ==
[2019-03-11 09:42] VITALS: BMI 20.9
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
[2019-03-11] MEDS ORDERED: chlordiazePOXIDE HCL 25 MG CAPSULE PO SCH (11:00)
[2019-03-11] MEDS ORDERED: MAGNESIUM CITRATE 300 ML BOTTLE PO PRN (11:05)
[2019-03-11] MEDS ORDERED: BISMUTH SUBSALICYLATE 262 MG/15 ML BTL PO PRN (11:05)
[2019-03-11] MEDS ORDERED: MELATONIN 5 MG TABLETS PO PRN (11:05)
[2019-03-11] MEDS ORDERED: ACETAMINOPHEN 325 MG TABLET (FP) PO PRN ×2 (11:05)
[2019-03-11] MEDS ORDERED: METHOCARBAMOL 500 MG TABLET PO PRN (11:05)
[2019-03-11] MEDS ORDERED: hydrOXYzine PAMOATE 25 MG CAPSULE (FP) PO PRN (11:05)
[2019-03-11] MEDS ORDERED: MENTHOL/PHENOL 1 EACH UD MM PRN (11:05)
[2019-03-11] MEDS ORDERED: MAGNESIUM HYDROX 2400MG/30ML ORAL SUSPENSION 30 ML CUP PO PRN (11:05)
[2019-03-11] MEDS ORDERED: IBUPROFEN 400 MG TABLET (FP) PO PRN (11:05)
[2019-03-11] MEDS ORDERED: MAG HYDROX/AL HYDROX/SIMETH 30 ML UNIT-DOSE CUP PO PRN (11:05)
[2019-03-11] MEDS ORDERED: cloNIDine HCL 0.1 MG TABLET PO PRN (11:05)
[2019-03-11] MEDS ORDERED: chlordiazePOXIDE HCL 25 MG CAPSULE PO PRN (11:05)
[2019-03-11] MEDS ORDERED: ALBUTEROL SO4 8 GM HFA INHALER IH PRN (11:07)
[2019-03-11] MEDS ORDERED: METHADONE HCL 10 MG TABLET (FOR DETOX USE ONLY) PO ONE (11:45)
[2019-03-11] MEDS: diazePAM 5 MG TABLET PO SCH ×2 (13:37→22:17)
--- NOTE | 2019-03-11 14:03 | CONSULT ---
[facility] Psychiatric Consult - Data Date of interview: 03/11/19 Admission source: Self-referred Identifying data: Mr Mazariegos is a 43 years old single , unemployed receiving SSI, domiciled seeking detox treatment for alcohol, opioid and cocaine Substance Abuse History: Reports history of alcohol, heroin and cocaine use. Refer to addiction counselor's summary for further information Medical History: Significant for bronchial asthma, hepatitis C diagnosed in 1997 , low back pain/ herniated disc sciatica, neuropathy and history of anemia. Smokes 3 cigarettes daily Psychiatric History: Patient is known to typewriter assembly and parts inspector from previous encounters during admissions to this facility and most recently in December 2018. Historical narrative remains consistent. He reports that his first psychiatric contact was around age 10 when he was diagnosed with ADHD & MDD. Reports that his first psychiatric hospitalization at age 13. Reports multiple psychiatric hospitalizations in facilities in [place], [place] and [place], [place]. Most recent admission was in 2007 to [facility] in [facility] for depression. When seen by typewriter assembly and parts inspector on 12/11/18, he reported receiving outpatient psychiatric treatment at [facility] near [facility], had his last visit with his psychiatrist was in November 2018 and he was prescribed Wellbutrin XL 150 mg/day, Buspirone 15 mg/bid. This was confirmed by calling Pharmacy where fillled scripts for these medications on 10/14/18. So he was continued on these medications along with Remeron 15 mg/hs for insomnia. Told typewriter assembly and parts inspector that after his discharge on 12/12/18, he used his 30 days supply of medications till he ran out and he has been off medications since. Reports 2 previous suicidal attempts via overdose on pills as a teenager and age 21. At present, denies experiencing depressive symptoms, S/H ideations. However, reports feeling anxious and sleeping poorly. He expresses willingness to resume medications Physical/Sexual Abuse/Trauma History: Denies history of emotional, physical or sexual abuse as well as DV relationship. No service Additional Comment: Reports history of multiple previous arrests including 4 felony convictions. Denies being on parole/probation Mental Status Exam - Mental Status Exam Alert and Oriented to: Time, Place, Person Cognitive Function: Fair Mood: Anxious Affect: Appropriate Patient Behavior: Cooperative Speech Pattern: Clear Voice Loudness: Normal Thought Process: Intact, Goal Oriented Thought Disorder: Not Present Hallucinations: Denies Suicidal Ideation: Denies Homicidal Ideation: Denies Insight/Judgement: Poor Sleep: Poorly Appetite: Poor Muscle strength/Tone: Normal Gait/Station: Normal Psychiatric Findings - Problem List ([place] 1, 2,3) (1) ADHD (attention deficit hyperactivity disorder) Current Visit: No Status: Chronic Qualifiers: Attention deficit-hyperactivity disorder type: unspecified Qualified Code(s ): F90.9 - Attention-deficit hyperactivity disorder, unspecified type Comment: Historical diagnosis. (2) MDD (major depressive disorder) Current Visit: No Status: Chronic Comment: As per self-report and records.On medications. (3) Substance-induced anxiety disorder Current Visit: No Status: Acute (4) Substance-induced sleep disorder Current Visit: No Status: Acute (5) Alcohol dependence Current Visit: Yes Status: Acute (6) Opioid dependence Current Visit: Yes Status: Acute (7) Cocaine dependence Current Visit: No Status: Acute (8) Sedative, hypnotic or anxiolytic dependence with withdrawal, uncomplicated Current Visit: No Status: Acute (9) Nicotine dependence Current Visit: No Status: Chronic Qualifiers: Nicotine product type: cigarettes Substance use status: in withdrawal Qualified Code(s): F17.213 - Nicotine dependence, cigarettes, with withdrawal (10) Sciatica Current Visit: No Status: Chronic Qualifiers: Laterality: unspecified laterality Qualified Code(s): M54.30 - Sciatica, unspecified side (11) Asthma Current Visit: No Status: Chronic (12) Gastroesophageal reflux disease Current Visit: No Status: Chronic (13) Hepatitis C Current Visit: No Status: Chronic Qualifiers: Viral hepatitis chronicity: chronic Hepatic coma status: without hepatic coma Qualified Code(s): B18.2 - Chronic viral hepatitis C (14) Neuropathy Current Visit: No Status: Chronic (15) Anemia Current Visit: Yes Status: Resolved - Initial Treatment Plan Initial Treatment Plan: 1) Resume Wellbutrin XL 150 mg po daily, Buspar 15 mg po BID and Remeron 15 mg po HS. 2) Continue inpatient detoxification
[2019-03-11] MEDS: diazePAM 5 MG TABLET PO PRN (17:38)
[2019-03-11 17:39] LABS: HEMATOCRIT 39.5 % (35.4-49); HEMOGLOBIN 12.9 GM/dL (11.7-16.9); MCH 26.8 pg (25.7-33.7); MCHC 32.6 g/dl (32.0-35.9); MEAN CELL VOLUME 82.1 fl (80-96); MEAN PLT VOLUME 8.5 fl (7.5-11.1); PLATELET COUNT 204 K/MM3 (134-434); RBC 4.81 M/mm3 (4.00-5.60); WHITE BLOOD COUNT 4.4 K/mm3 (4.0-10.0)
[2019-03-11 17:43] LABS: ALBUMIN 3.7 g/dl (3.4-5.0); BILIRUBIN,TOTAL 0.3 mg/dL (0.2-1); CREATININE 0.8 mg/dL (0.55-1.3); TOT PROT 7.6 g/dl (6.4-8.2)
[2019-03-11] MEDS ORDERED: SUVOREXANT 10 MG TABLET PO PRN (22:00)
[2019-03-11] MEDS: NAPROXEN 500 MG TABLET (FP) PO SCH (22:17)
[2019-03-11] MEDS: GABAPENTIN 400 MG CAPSULE (FP) PO SCH (22:17)
[2019-03-11] MEDS: MIRTAZAPINE 15 MG TABLET (FP) PO SCH (22:17)
[2019-03-11] MEDS: THIAMINE HCL 100 MG TABLET (FP) PO SCH (22:19)
[2019-03-12] MEDS: diazePAM 5 MG TABLET PO SCH ×3 (05:31→22:18)
[2019-03-12] MEDS ORDERED: METHADONE HCL 5 MG TABLET (FOR DETOX USE ONLY) ONE (08:52)
[2019-03-12] MEDS ORDERED: METHADONE HCL 10 MG TABLET (FOR DETOX USE ONLY) ONE (08:52)
[2019-03-12] MEDS: GABAPENTIN 400 MG CAPSULE (FP) PO SCH ×2 (09:22→22:18)
[2019-03-12] MEDS: PRENATAL VITAMINS W/ FOLIC ACID TABLET (FP) PO SCH (09:22)
[2019-03-12] MEDS: PANTOPRAZOLE 40 MG TABLET (FP) PO SCH (09:23)
[2019-03-12] MEDS: NICOTINE 14 MG/24 HOURS TOPICAL PATCH TD SCH (09:23)
[2019-03-12] MEDS: CYCLOBENZAPRINE HCL 10 MG TABLET (FP) PO SCH (09:23)
[2019-03-12] MEDS: NAPROXEN 500 MG TABLET (FP) PO SCH ×2 (09:23→22:18)
[2019-03-12] MEDS: diazePAM 5 MG TABLET PO PRN ×2 (09:26→18:18)
--- NOTE | 2019-03-12 09:57 | PN ---
[facility] CIWA - CIWA Score Nausea/Vomitin-Mild Nausea/No Vomiting Muscle Tremors: 2 Anxiety: 2 Agitation: 1-Slight > Activity Paroxysmal Sweats: 2 Orientation: 0-Oriented Tacttile Disturbances: 1-Very Mild Itch/Numbness Auditory Disturbances: 0-None Visual Disturbances: 1-Very Mild Sensitivity Headache: 2-Mild CIWA-Ar Total Score: 12 S COWS - Scale Resting Pulse: 0= IN 80 or Below Sweatin= Chills/Flushing Restless Observation: 1= Difficult to Sit Still Pupil Size: 0= Normal to Room Light Bone or Joint Aches: 1= Mild Discomfort Runny Nose/ Eye Tearin= Runny Nose/Eyes GI Upset > 30mins: 2= Nausea/Diarrhea Tremor Observation of Outstretched Hands: 1= Tremor [place], Not Seen Yawning Observation: 1= 1-2x During Session Anxiety or Irritability: 1=Feels Anxious/Irritable Goose Flesh Skin: 0=Smooth Skin COWS Score: 10 [facility] Progress Note (SOAP) Subjective: c/o of chills, sweats, interrupted sleep, body aches Objective: 03/12/19 09:55 Vital Signs Temperature 97.7 F 03/12/19 09:22 Pulse Rate 62 03/12/19 09:22 Respiratory Rate 16 03/12/19 09:22 Blood Pressure 112/79 03/12/19 09:22 O2 Sat by Pulse Oximetry (%) Laboratory Last Values WBC 4.4 K/mm3 (4.0-10.0) 03/11/19 13:00 RBC 4.81 M/mm3 (4.00-5.60) 03/11/19 13:00 Hgb 12.9 GM/dL (11.7-16.9) 03/11/19 13:00 Hct 39.5 % (35.4-49) 03/11/19 13:00 MCV 82.1 fl (80-96) 03/11/19 13:00 MCH 26.8 pg (25.7-33.7) 03/11/19 13:00 MCHC 32.6 g/dl (32.0-35.9) 03/11/19 13:00 RDW 15.0 % (11.9-15.9) 03/11/19 13:00 Plt Count 204 K/MM3 (134-434) 03/11/19 13:00 MPV 8.5 fl (7.5-11.1) 03/11/19 13:00 Sodium 138 mmol/L (136-145) 03/11/19 13:00 Potassium 4.0 mmol/L (3.5-5.1) 03/11/19 13:00 Chloride 104 mmol/L (98-107) 03/11/19 13:00 Carbon Dioxide 26 mmol/L (21-32) 03/11/19 13:00 Anion Gap 8 MMOL/L (8-16) 03/11/19 13:00 BUN 19.0 mg/dL (7-18) H 03/11/19 13:00 Creatinine 0.8 mg/dL (0.55-1.3) 03/11/19 13:00 Est GFR (CKD-EPI)AfAm 126.81 03/11/19 13:00 Est GFR (CKD-EPI)NonAf 109.41 03/11/19 13:00 Random Glucose 100 mg/dL (74-106) 03/11/19 13:00 Calcium 9.0 mg/dL (8.5-10.1) 03/11/19 13:00 Total Bilirubin 0.3 mg/dL (0.2-1) 03/11/19 13:00 AST 39 U/L (15-37) H 03/11/19 13:00 ALT 60 U/L (13-61) 03/11/19 13:00 Alkaline Phosphatase 110 U/L (45-117) 03/11/19 13:00 Total Protein 7.6 g/dl (6.4-8.2) 03/11/19 13:00 Albumin 3.7 g/dl (3.4-5.0) 03/11/19 13:00 RPR Titer Nonreactive (NONREACTIVE) 03/11/19 13:00 HIV 1&2 Antibody Screen Negative 03/11/19 11:50 HIV P24 Antigen Negative 03/11/19 11:50 Assessment: 03/12/19 09:56 Aox3 no acute distress full ROM ambulating in the unit withdrawal sx Plan: increase fluids continue detox continue to monitor
[2019-03-12] MEDS ORDERED: METHADONE (DETOX) 20 MG, METHADONE (DETOX) 5 MG PO ONE (10:00)
[2019-03-12] MEDS: THIAMINE HCL 100 MG TABLET (FP) PO SCH (22:18)
[2019-03-12] MEDS: MIRTAZAPINE 15 MG TABLET (FP) PO SCH (22:18)
[2019-03-13] MEDS: diazePAM 5 MG TABLET PO PRN ×2 (02:31→09:39)
[2019-03-13] MEDS ORDERED: chlordiazePOXIDE HCL 25 MG CAPSULE PO SCH (05:00)
[2019-03-13] MEDS ORDERED: diazePAM 5 MG TABLET PO SCH (06:00)
[2019-03-13] MEDS: NAPROXEN 500 MG TABLET (FP) PO SCH (09:33)
[2019-03-13] MEDS: GABAPENTIN 400 MG CAPSULE (FP) PO SCH (09:33)
[2019-03-13] MEDS: PRENATAL VITAMINS W/ FOLIC ACID TABLET (FP) PO SCH (09:33)
[2019-03-13] MEDS: NICOTINE 14 MG/24 HOURS TOPICAL PATCH TD SCH (09:33)
[2019-03-13] MEDS: CYCLOBENZAPRINE HCL 10 MG TABLET (FP) PO SCH (09:34)
[2019-03-13] MEDS: PANTOPRAZOLE 40 MG TABLET (FP) PO SCH (09:34)
[2019-03-13] MEDS ORDERED: METHADONE HCL 10 MG TABLET (FOR DETOX USE ONLY) PO ONE (10:00)
[2019-03-13 10:10] VITALS: BP 146/86; PULSE 65; TEMP 98
--- NOTE | 2019-03-13 10:53 | PN ---
S CIWA - CIWA Score Nausea/Vomitin Muscle Tremors: 2 Anxiety: 2 Agitation: 1-Slight > Activity Paroxysmal Sweats: 2 Orientation: 0-Oriented Tacttile Disturbances: 1-Very Mild Itch/Numbness Auditory Disturbances: 0-None Visual Disturbances: 0-None Headache: 1-Very Mild CIWA-Ar Total Score: 11 [facility] COWS - Scale Resting Pulse: 0= [place] 80 or Below Sweatin= Chills/Flushing Restless Observation: 1= Difficult to Sit Still Pupil Size: 0= Normal to Room Light Bone or Joint Aches: 2= Severe Diffuse Aches Runny Nose/ Eye Tearin= Runny Nose/Eyes GI Upset > 30mins: 1= Stomach Cramp Tremor Observation of Outstretched Hands: 0= None Yawning Observation: 0= None Anxiety or Irritability: 1=Feels Anxious/Irritable Goose Flesh Skin: 0=Smooth Skin COWS Score: 8 [facility] Progress Note (SOAP) Subjective: c/o of body aches, chills, sweats, back pain Objective: 03/13/19 10:54 Vital Signs Temperature 98 F 03/13/19 10:09 Pulse Rate 65 03/13/19 10:09 Respiratory Rate 18 03/13/19 10:09 Blood Pressure 146/86 03/13/19 10:09 O2 Sat by Pulse Oximetry (%) Laboratory Last Values WBC 4.4 K/mm3 (4.0-10.0) 03/11/19 13:00 RBC 4.81 M/mm3 (4.00-5.60) 03/11/19 13:00 Hgb 12.9 GM/dL (11.7-16.9) 03/11/19 13:00 Hct 39.5 % (35.4-49) 03/11/19 13:00 MCV 82.1 fl (80-96) 03/11/19 13:00 MCH 26.8 pg (25.7-33.7) 03/11/19 13:00 MCHC 32.6 g/dl (32.0-35.9) 03/11/19 13:00 RDW 15.0 % (11.9-15.9) 03/11/19 13:00 Plt Count 204 K/MM3 (134-434) 03/11/19 13:00 MPV 8.5 fl (7.5-11.1) 03/11/19 13:00 Sodium 138 mmol/L (136-145) 03/11/19 13:00 Potassium 4.0 mmol/L (3.5-5.1) 03/11/19 13:00 Chloride 104 mmol/L (98-107) 03/11/19 13:00 Carbon Dioxide 26 mmol/L (21-32) 03/11/19 13:00 Anion Gap 8 MMOL/L (8-16) 03/11/19 13:00 BUN 19.0 mg/dL (7-18) H 03/11/19 13:00 Creatinine 0.8 mg/dL (0.55-1.3) 03/11/19 13:00 Est GFR (CKD-EPI)AfAm 126.81 03/11/19 13:00 Est GFR (CKD-EPI)NonAf 109.41 03/11/19 13:00 Random Glucose 100 mg/dL (74-106) 03/11/19 13:00 Calcium 9.0 mg/dL (8.5-10.1) 03/11/19 13:00 Total Bilirubin 0.3 mg/dL (0.2-1) 03/11/19 13:00 AST 39 U/L (15-37) H 03/11/19 13:00 ALT 60 U/L (13-61) 03/11/19 13:00 Alkaline Phosphatase 110 U/L (45-117) 03/11/19 13:00 Total Protein 7.6 g/dl (6.4-8.2) 03/11/19 13:00 Albumin 3.7 g/dl (3.4-5.0) 03/11/19 13:00 RPR Titer Nonreactive (NONREACTIVE) 03/11/19 13:00 HIV 1&2 Antibody Screen Negative 03/11/19 11:50 HIV P24 Antigen Negative 03/11/19 11:50 Assessment: 03/13/19 10:56 Patient is Aox3 no acute distress EENT WNL No adventitious breath sounds full ROM no gait disturbance withdrawal sx back pain Plan: increase fluids continue detox lidocaine patch for pain continue to monitor
[2019-03-13] MEDS ORDERED: LIDOCAINE 5% TOPICAL PATCH TP SCH (11:00)
--- NOTE | 2019-03-13 12:58 | DS ---
[facility] Detox Discharge Summary Admission Date: 03/11/19 Discharge Date: 03/13/19 - History Present History: Alcohol Dependence, Cocaine Dependence, Opioid Dependence Pertinent Past History: Patient left AMA. Patient advised on the risk of interrupting treatment which include relapse, injury or . Patient to follow up with outpatient referrals , followup with PCP and if worsening symptoms are present to seek medical attention. Patient verbalizes understanding. - Physical Exam Results Vital Signs: Vital Signs Temperature 98 F 03/13/19 10:09 Pulse Rate 65 03/13/19 10:09 Respiratory Rate 18 03/13/19 10:09 Blood Pressure 146/86 03/13/19 10:09 O2 Sat by Pulse Oximetry (%) Pertinent Admission Physical Exam Findings: Denies SI/HI Aox3 no acute distressed EENT WNL Full ROM no gait disturbance Vital Signs Temperature 98 F 03/13/19 10:09 Pulse Rate 65 03/13/19 10:09 Respiratory Rate 18 03/13/19 10:09 Blood Pressure 146/86 03/13/19 10:09 O2 Sat by Pulse Oximetry (%) Laboratory Last Values WBC 4.4 K/mm3 (4.0-10.0) 03/11/19 13:00 RBC 4.81 M/mm3 (4.00-5.60) 03/11/19 13:00 Hgb 12.9 GM/dL (11.7-16.9) 03/11/19 13:00 Hct 39.5 % (35.4-49) 03/11/19 13:00 MCV 82.1 fl (80-96) 03/11/19 13:00 MCH 26.8 pg (25.7-33.7) 03/11/19 13:00 MCHC 32.6 g/dl (32.0-35.9) 03/11/19 13:00 RDW 15.0 % (11.9-15.9) 03/11/19 13:00 Plt Count 204 K/MM3 (134-434) 03/11/19 13:00 MPV 8.5 fl (7.5-11.1) 03/11/19 13:00 Sodium 138 mmol/L (136-145) 03/11/19 13:00 Potassium 4.0 mmol/L (3.5-5.1) 03/11/19 13:00 Chloride 104 mmol/L (98-107) 03/11/19 13:00 Carbon Dioxide 26 mmol/L (21-32) 03/11/19 13:00 Anion Gap 8 MMOL/L (8-16) 03/11/19 13:00 BUN 19.0 mg/dL (7-18) H 03/11/19 13:00 Creatinine 0.8 mg/dL (0.55-1.3) 03/11/19 13:00 Est GFR (CKD-EPI)AfAm 126.81 03/11/19 13:00 Est GFR (CKD-EPI)NonAf 109.41 03/11/19 13:00 Random Glucose 100 mg/dL (74-106) 03/11/19 13:00 Calcium 9.0 mg/dL (8.5-10.1) 03/11/19 13:00 Total Bilirubin 0.3 mg/dL (0.2-1) 03/11/19 13:00 AST 39 U/L (15-37) H 03/11/19 13:00 ALT 60 U/L (13-61) 03/11/19 13:00 Alkaline Phosphatase 110 U/L (45-117) 03/11/19 13:00 Total Protein 7.6 g/dl (6.4-8.2) 03/11/19 13:00 Albumin 3.7 g/dl (3.4-5.0) 03/11/19 13:00 RPR Titer Nonreactive (NONREACTIVE) 03/11/19 13:00 HIV 1&2 Antibody Screen Negative 03/11/19 11:50 HIV P24 Antigen Negative 03/11/19 11:50 - Treatment Hospital Course: Discharged Condition Good Patient has Accepted a Rehab Referral to: out patient - Medication Discharge Medications: Ambulatory Orders Gabapentin [Neurontin -] 800 mg PO BID 01/19/14 Omeprazole [Prilosec] 20 mg PO DAILY 07/27/15 Mirtazapine [Remeron -] 15 mg PO HS #30 tablet 05/29/17 Albuterol Sulfate Inhaler - [Ventolin HFA Inhaler -] 2 inh PO Q4H PRN #1 inhaler 04/22/18 Buspirone HCl 15 mg PO BID 12/10/18 Naproxen [Naprosyn -] 500 mg PO BID 12/10/18 Bupropion HCl [Wellbutrin Xl -] 150 mg PO DAILY 03/11/19 Cyclobenzaprine HCl [Flexeril 10 mg] 10 mg PO DAILY 03/11/19 Zolpidem Tartrate [Ambien] 10 mg PO HS 03/11/19 - Diagnosis (1) Alcohol dependence Current Visit: Yes Status: Acute (2) Cocaine dependence Current Visit: Yes Status: Acute Qualifiers: Substance use status: uncomplicated Qualified Code(s): F14.20 - Cocaine dependence, uncomplicated (3) IVDU (intravenous drug user) Current Visit: Yes Status: Acute (4) Opioid dependence Current Visit: Yes Status: Acute (5) Anemia Current Visit: Yes Status: Resolved (6) Cocaine dependence Current Visit: Yes Status: Acute (7) Asthma Current Visit: Yes Status: Chronic (8) Sedative, hypnotic or anxiolytic dependence with withdrawal, uncomplicated Current Visit: Yes Status: Acute - AMA Did Patient Leave Against Medical Advice: Yes
[2019-03-13] MEDS ORDERED: LIDOCAINE PATCH REMOVAL MC SCH (22:00)
[2019-03-14] MEDS ORDERED: chlordiazePOXIDE HCL 10 MG CAPSULE PO PRN
[2019-03-14] MEDS ORDERED: chlordiazePOXIDE HCL 10 MG CAPSULE PO SCH (05:00)
[2019-03-14] MEDS ORDERED: diazePAM 5 MG TABLET PO ONE (06:00)
[2019-03-14] MEDS ORDERED: METHADONE (DETOX) 10 MG, METHADONE (DETOX) 5 MG PO ONE (10:00)
[2019-03-15] MEDS ORDERED: chlordiazePOXIDE HCL 10 MG CAPSULE PO SCH (05:00)
[2019-03-15] MEDS ORDERED: METHADONE HCL 10 MG TABLET (FOR DETOX USE ONLY) PO ONE (10:00)
[2019-03-16] MEDS ORDERED: chlordiazePOXIDE HCL 10 MG CAPSULE PO ONE (05:00)
[2019-03-16] MEDS ORDERED: METHADONE HCL 5 MG TABLET (FOR DETOX USE ONLY) PO ONE (06:00)
== END 2019-03-13 13:54 | disposition left against medical advice (07) | DRG 770 ==
LOC: YASAS 09:12 → Y6N 11:26
PROVIDERS: ADMIT Allergy & Immunology; ATTEND Allergy & Immunology
PROC: HZ2ZZZZ Detoxification Services for Substance Abuse Treatment (ICD-10-PCS; principal; 2019-03-11)
DX: F11.23 Opioid dependence with withdrawal (principal); F10.230 Alcohol dependence with withdrawal, uncomplicated; F13.230 Sedative, hypnotic or anxiolytic dependence with withdrawal, uncomplicated; F14.20 Cocaine dependence, uncomplicated; F17.213 Nicotine dependence, cigarettes, with withdrawal; F90.9 Attention-deficit hyperactivity disorder, unspecified type; F32.9 Major depressive disorder, single episode, unspecified; F19.280 Other psychoactive substance dependence with psychoactive substance-induced anxiety disorder; F19.282 Other psychoactive substance dependence with psychoactive substance-induced sleep disorder; J45.909 Unspecified asthma, uncomplicated; B18.2 Chronic viral hepatitis C; G62.9 Polyneuropathy, unspecified; M54.30 Sciatica, unspecified side; K21.9 Gastro-esophageal reflux disease without esophagitis; G47.00 Insomnia, unspecified; Z88.0 Allergy status to penicillin; Z56.0 Unemployment, unspecified; Z91.5 Personal history of self-harm
CPT/HCPCS: 36415; 80053; 85027; 86593; 87389

== ENCOUNTER 2020-01-20 11:21 | Inpatient (IN) | payer OTHER ==
[2020-01-20 12:49] VITALS: BMI 21.7
[2020-01-20] MEDS ORDERED: MENTHOL/PHENOL 1 EACH UD MM PRN (13:46)
[2020-01-20] MEDS ORDERED: ACETAMINOPHEN 325 MG TABLET (FP) PO PRN ×2 (13:46)
[2020-01-20] MEDS ORDERED: IBUPROFEN 400 MG TABLET (FP) PO PRN (13:46)
[2020-01-20] MEDS ORDERED: NICOTINE POLACRILEX 2 MG GUM BUC PRN (13:46)
[2020-01-20] MEDS ORDERED: MAGNESIUM HYDROX 2400MG/30ML ORAL SUSPENSION 30 ML CUP PO PRN (13:46)
[2020-01-20] MEDS ORDERED: BISMUTH SUBSALICYLATE 262 MG/15 ML BTL PO PRN (13:46)
[2020-01-20] MEDS ORDERED: ONDANSETRON *ODT* 4 MG TABLET SL PRN (13:46)
[2020-01-20] MEDS ORDERED: METHOCARBAMOL 500 MG TABLET PO PRN (13:46)
[2020-01-20] MEDS ORDERED: MAGNESIUM CITRATE 300 ML BOTTLE PO PRN (13:46)
[2020-01-20] MEDS ORDERED: MAG HYDROX/AL HYDROX/SIMETH 30 ML UNIT-DOSE CUP PO PRN (13:46)
[2020-01-20] MEDS ORDERED: cloNIDine HCL 0.1 MG TABLET PO PRN (13:52)
[2020-01-20] MEDS ORDERED: METHADONE HCL 10 MG TABLET (FOR DETOX USE ONLY) PO ONE (13:52)
[2020-01-20] MEDS ORDERED: ALBUTEROL SO4 HFA INHALER IH PRN (13:54)
[2020-01-20] MEDS: hydrOXYzine PAMOATE 25 MG CAPSULE (FP) PO SCH ×3 (14:37→22:06)
[2020-01-20] MEDS: NICOTINE 7 MG/24 HOURS TOPICAL PATCH TD SCH (14:38)
[2020-01-20 15:35] LABS: HEMATOCRIT 39.1 % (35.4-49); HEMOGLOBIN 12.6 GM/dL (11.7-16.9); MCH 25.8 pg (25.7-33.7); MCHC 32.2 g/dl (32.0-35.9); MEAN PLT VOLUME 8.1 fl (7.5-11.1); PLATELET COUNT 240 K/MM3 (134-434); RBC 4.89 M/mm3 (4.00-5.60); WHITE BLOOD COUNT 4.6 K/mm3 (4.0-10.0)
[2020-01-20 15:38] LABS: POTASSIUM 4.4 mmol/L (3.5-5.1)
[2020-01-20 15:41] LABS: CALCIUM 9.3 mg/dL (8.5-10.1)
[2020-01-20 15:42] LABS: ALBUMIN 4.2 g/dl (3.4-5.0); BLOOD UREA NITROGEN 28.7 mg/dL (7-18)
[2020-01-20 15:44] LABS: CREATININE 0.9 mg/dL (0.55-1.3)
[2020-01-20 15:47] LABS: BILIRUBIN,TOTAL 1.1 mg/dL (0.2-1); TOT PROT 8.6 g/dl (6.4-8.2)
[2020-01-20 16:35] LABS: HIV INTERPRETATION NEGATIVE (NEGATIVE)
[2020-01-20] MEDS: LORazepam 2 MG TABLET PO SCH ×2 (17:34→22:05)
[2020-01-20] MEDS: MELATONIN 5 MG TABLETS PO SCH (22:05)
[2020-01-20] MEDS: GABAPENTIN 400 MG CAPSULE PO SCH (22:05)
[2020-01-20] MEDS: THIAMINE HCL 100 MG TABLET (FP) PO SCH (22:05)
[2020-01-21] MEDS: hydrOXYzine PAMOATE 25 MG CAPSULE (FP) PO SCH ×3 (05:48→15:09)
[2020-01-21] MEDS: LORazepam 2 MG TABLET PO SCH ×4 (05:48→22:38)
[2020-01-21] MEDS ORDERED: METHADONE HCL 5 MG TABLET (FOR DETOX USE ONLY) ONE (08:52)
[2020-01-21] MEDS ORDERED: METHADONE HCL 10 MG TABLET (FOR DETOX USE ONLY) ONE (08:52)
[2020-01-21] MEDS ORDERED: METHADONE (DETOX) 20 MG, METHADONE (DETOX) 5 MG PO ONE (10:00)
[2020-01-21] MEDS: PRENATAL VITAMINS W/ FOLIC ACID TABLET (FP) PO SCH (10:35)
[2020-01-21] MEDS: GABAPENTIN 400 MG CAPSULE PO SCH ×2 (10:35→22:38)
[2020-01-21] MEDS: NICOTINE 7 MG/24 HOURS TOPICAL PATCH TD SCH (10:36)
[2020-01-21] MEDS: LORazepam 1 MG TABLET PO PRN (13:45)
[2020-01-21] MEDS ORDERED: hydrOXYzine PAMOATE 25 MG CAPSULE (FP) PO PRN (14:35)
[2020-01-21] MEDS: THIAMINE HCL 100 MG TABLET (FP) PO SCH (22:39)
[2020-01-21] MEDS: MELATONIN 5 MG TABLETS PO SCH (22:39)
[2020-01-22] MEDS: LORazepam 1 MG TABLET PO PRN (02:49)
[2020-01-22] MEDS: LORazepam 1 MG TABLET PO SCH ×2 (05:22→11:00)
[2020-01-22 08:49] VITALS: BP 113/82; PULSE 72; TEMP 97.7
[2020-01-22] MEDS ORDERED: METHADONE HCL 10 MG TABLET (FOR DETOX USE ONLY) PO ONE (10:00)
[2020-01-22] MEDS: GABAPENTIN 400 MG CAPSULE PO SCH (10:59)
[2020-01-22] MEDS: NICOTINE 7 MG/24 HOURS TOPICAL PATCH TD SCH (10:59)
[2020-01-22] MEDS: PRENATAL VITAMINS W/ FOLIC ACID TABLET (FP) PO SCH (11:00)
[2020-01-23] MEDS ORDERED: LORazepam 0.5 MG TABLET PO PRN
[2020-01-23] MEDS ORDERED: LORazepam 0.5 MG TABLET PO SCH (05:00)
[2020-01-23] MEDS ORDERED: METHADONE (DETOX) 10 MG, METHADONE (DETOX) 5 MG PO ONE (10:00)
[2020-01-24] MEDS ORDERED: LORazepam 0.5 MG TABLET PO ONE (05:00)
[2020-01-24] MEDS ORDERED: METHADONE HCL 10 MG TABLET (FOR DETOX USE ONLY) PO ONE (10:00)
[2020-01-25] MEDS ORDERED: METHADONE HCL 5 MG TABLET (FOR DETOX USE ONLY) PO ONE (06:00)
== END 2020-01-22 09:36 | disposition left against medical advice (07) | DRG 770 ==
LOC: YASAS 11:21 → Y3N 13:24
PROVIDERS: ADMIT Allergy & Immunology; ATTEND Allergy & Immunology
PROC: HZ2ZZZZ Detoxification Services for Substance Abuse Treatment (ICD-10-PCS; principal; 2020-01-20)
DX: F10.230 Alcohol dependence with withdrawal, uncomplicated (principal); F11.23 Opioid dependence with withdrawal; F14.20 Cocaine dependence, uncomplicated; F13.10 Sedative, hypnotic or anxiolytic abuse, uncomplicated; F17.210 Nicotine dependence, cigarettes, uncomplicated; F19.282 Other psychoactive substance dependence with psychoactive substance-induced sleep disorder; F19.24 Other psychoactive substance dependence with psychoactive substance-induced mood disorder; F31.9 Bipolar disorder, unspecified; F41.9 Anxiety disorder, unspecified; G40.509 Epileptic seizures related to external causes, not intractable, without status epilepticus; G47.00 Insomnia, unspecified; K21.9 Gastro-esophageal reflux disease without esophagitis; J45.909 Unspecified asthma, uncomplicated; B18.2 Chronic viral hepatitis C; M51.24 Other intervertebral disc displacement, thoracic region; M51.26 Other intervertebral disc displacement, lumbar region; Z87.39 Personal history of other diseases of the musculoskeletal system and connective tissue; G89.29 Other chronic pain; Z88.0 Allergy status to penicillin
CPT/HCPCS: 36415; 80053; 85027; 86780; 87389; 93005; 93010; C9803; U0003

== ENCOUNTER 2020-03-03 12:02 | Inpatient (IN) | payer OTHER ==
[2020-03-03 12:43] VITALS: BMI 22.2
[2020-03-03] MEDS ORDERED: MENTHOL/PHENOL 1 EACH UD MM PRN (13:35)
[2020-03-03] MEDS ORDERED: cloNIDine HCL 0.1 MG TABLET PO PRN (13:35)
[2020-03-03] MEDS ORDERED: methaDONE HCL 10 MG TABLET (FOR DETOX USE ONLY) PO ONE (13:35)
[2020-03-03] MEDS ORDERED: BISMUTH SUBSALICYLATE 524 MG/30 ML PO PRN (13:35)
[2020-03-03] MEDS ORDERED: ACETAMINOPHEN 325 MG TABLET (FP) PO PRN ×2 (13:35)
[2020-03-03] MEDS ORDERED: MAG HYDROX/AL HYDROX/SIMETH 30 ML UNIT-DOSE CUP PO PRN (13:35)
[2020-03-03] MEDS ORDERED: MAGNESIUM HYDROX 2400MG/30ML ORAL SUSPENSION 30 ML CUP PO PRN (13:35)
[2020-03-03] MEDS ORDERED: MAGNESIUM CITRATE 300 ML BOTTLE PO PRN (13:35)
[2020-03-03] MEDS ORDERED: ONDANSETRON *ODT* 4 MG TABLET SL PRN (13:35)
[2020-03-03] MEDS ORDERED: IBUPROFEN 400 MG TABLET (FP) PO PRN (13:35)
[2020-03-03] MEDS ORDERED: NICOTINE POLACRILEX 2 MG GUM BUC PRN (13:35)
[2020-03-03] MEDS: NICOTINE 7 MG/24 HOURS TOPICAL PATCH TD SCH (15:08)
[2020-03-03] MEDS: hydrOXYzine PAMOATE 25 MG CAPSULE (FP) PO SCH ×3 (15:11→22:22)
[2020-03-03] MEDS: PRENATAL VITAMINS W/ FOLIC ACID TABLET (FP) PO SCH (15:11)
[2020-03-03 17:10] LABS: HEMATOCRIT 38.1 % (35.4-49); HEMOGLOBIN 12.6 GM/dL (11.7-16.9); MCH 26.5 pg (25.7-33.7); MEAN CELL VOLUME 80.3 fl (80-96); MEAN PLT VOLUME 8.1 fl (7.5-11.1); PLATELET COUNT 220 K/MM3 (134-434); RBC 4.74 M/mm3 (4.00-5.60); RDW 15.8 % (11.9-15.9); WHITE BLOOD COUNT 4.9 K/mm3 (4.0-10.0)
[2020-03-03 17:12] LABS: ALBUMIN 4.1 g/dl (3.4-5.0); BLOOD UREA NITROGEN 24.6 mg/dL (7-18); CALCIUM 9.1 mg/dL (8.5-10.1)
[2020-03-03 17:15] LABS: CREATININE 1.1 mg/dL (0.55-1.3)
[2020-03-03 17:17] LABS: BILIRUBIN,TOTAL 0.5 mg/dL (0.2-1); TOT PROT 8.1 g/dl (6.4-8.2)
[2020-03-03] MEDS: MIRTAZAPINE 15 MG TABLET (FP) PO SCH (22:22)
[2020-03-03] MEDS: THIAMINE HCL 100 MG TABLET (FP) PO SCH (22:22)
[2020-03-03] MEDS: MELATONIN 5 MG TABLETS PO SCH (22:22)
[2020-03-04] MEDS: hydrOXYzine PAMOATE 25 MG CAPSULE (FP) PO SCH ×5 (07:12→22:37)
[2020-03-04] MEDS ORDERED: methaDONE HCL 10 MG TABLET (FOR DETOX USE ONLY) ONE (08:12)
[2020-03-04] MEDS: NICOTINE 7 MG/24 HOURS TOPICAL PATCH TD SCH (09:45)
[2020-03-04] MEDS: PRENATAL VITAMINS W/ FOLIC ACID TABLET (FP) PO SCH (09:45)
[2020-03-04] MEDS: METHOCARBAMOL 500 MG TABLET PO PRN ×2 (09:47→17:42)
[2020-03-04] MEDS: MIRTAZAPINE 15 MG TABLET (FP) PO SCH (22:37)
[2020-03-04] MEDS: MELATONIN 5 MG TABLETS PO SCH (22:37)
[2020-03-04] MEDS: THIAMINE HCL 100 MG TABLET (FP) PO SCH (22:37)
[2020-03-05] MEDS ORDERED: MASKS NR ONE (01:30)
[2020-03-05] MEDS: hydrOXYzine PAMOATE 25 MG CAPSULE (FP) PO SCH ×3 (06:35→13:04)
[2020-03-05] MEDS: PRENATAL VITAMINS W/ FOLIC ACID TABLET (FP) PO SCH (09:19)
[2020-03-05] MEDS: NICOTINE 7 MG/24 HOURS TOPICAL PATCH TD SCH (09:19)
[2020-03-05] MEDS ORDERED: methaDONE HCL 10 MG TABLET (FOR DETOX USE ONLY) PO ONE (10:00)
[2020-03-05 13:17] VITALS: BP 109/74; PULSE 68; TEMP 98.6
[2020-03-07] MEDS ORDERED: methaDONE HCL 10 MG TABLET (FOR DETOX USE ONLY) PO ONE (10:00)
[2020-03-07 17:43] LABS: HIV INTERPRETATION NEGATIVE (NEGATIVE)
== END 2020-03-05 13:47 | disposition left against medical advice (07) | DRG 770 ==
LOC: YASAS 12:02 → Y3N 14:04
PROVIDERS: ADMIT Allergy & Immunology; ATTEND Allergy & Immunology
PROC: HZ2ZZZZ Detoxification Services for Substance Abuse Treatment (ICD-10-PCS; principal; 2020-03-03)
DX: F11.23 Opioid dependence with withdrawal (principal); F14.20 Cocaine dependence, uncomplicated; F13.20 Sedative, hypnotic or anxiolytic dependence, uncomplicated; F17.210 Nicotine dependence, cigarettes, uncomplicated; F19.282 Other psychoactive substance dependence with psychoactive substance-induced sleep disorder; F31.9 Bipolar disorder, unspecified; F41.9 Anxiety disorder, unspecified; J45.909 Unspecified asthma, uncomplicated; K21.9 Gastro-esophageal reflux disease without esophagitis; M51.26 Other intervertebral disc displacement, lumbar region; B18.2 Chronic viral hepatitis C; Z86.2 Personal history of diseases of the blood and blood-forming organs and certain disorders involving the immune mechanism; Z86.69 Personal history of other diseases of the nervous system and sense organs; Z88.0 Allergy status to penicillin; Z91.5 Personal history of self-harm; Z56.0 Unemployment, unspecified
CPT/HCPCS: 36415; 80053; 85027; 86780; 87389; C9803; J0735; U0003

== ENCOUNTER 2020-08-24 11:44 | Inpatient (IN) | payer OTHER ==
[2020-08-24 12:17] VITALS: BMI 23.3
[2020-08-24] MEDS ORDERED: MENTHOL/PHENOL 1 EACH UD MM PRN (13:00)
[2020-08-24] MEDS ORDERED: MAGNESIUM HYDROX 2400MG/30ML ORAL SUSPENSION 30 ML CUP PO PRN (13:00)
[2020-08-24] MEDS ORDERED: BISMUTH SUBSALICYLATE 524 MG/30 ML PO PRN (13:00)
[2020-08-24] MEDS ORDERED: IBUPROFEN 400 MG TABLET (FP) PO PRN (13:00)
[2020-08-24] MEDS ORDERED: ONDANSETRON *ODT* 4 MG TABLET SL PRN (13:00)
[2020-08-24] MEDS ORDERED: ACETAMINOPHEN 325 MG TABLET (FP) PO PRN ×2 (13:00)
[2020-08-24] MEDS ORDERED: MAGNESIUM CITRATE 300 ML BOTTLE PO PRN (13:00)
[2020-08-24] MEDS ORDERED: MAG HYDROX/AL HYDROX/SIMETH 30 ML UNIT-DOSE CUP PO PRN (13:00)
[2020-08-24] MEDS ORDERED: METHADONE HCL 10 MG TABLET (FOR DETOX USE ONLY) PO ONE (14:00)
[2020-08-24] MEDS: METHOCARBAMOL 500 MG TABLET PO PRN (14:38)
[2020-08-24] MEDS: hydrOXYzine PAMOATE 25 MG CAPSULE (FP) PO SCH ×4 (14:39→22:24)
[2020-08-24] MEDS: PRENATAL VITAMINS W/ FOLIC ACID TABLET (FP) PO SCH (14:41)
[2020-08-24 15:29] LABS: HEMATOCRIT 40.5 % (35.4-49); HEMOGLOBIN 13.1 GM/dL (11.7-16.9); MCH 26.9 pg (25.7-33.7); MCHC 32.3 g/dl (32.0-35.9); MEAN CELL VOLUME 83.1 fl (80-96); MEAN PLT VOLUME 8.5 fl (7.5-11.1); PLATELET COUNT 210 10^3/uL (134-434); RBC 4.88 M/mm3 (4.00-5.60); RDW 13.8 % (11.9-15.9); WHITE BLOOD COUNT 4.6 K/mm3 (4.0-10.0)
[2020-08-24 15:50] LABS: ALBUMIN 4.2 g/dl (3.4-5.0); BLOOD UREA NITROGEN 10.9 mg/dL (7-18); CALCIUM 8.8 mg/dL (8.5-10.1)
[2020-08-24 15:54] LABS: CREATININE 0.8 mg/dL (0.55-1.3)
[2020-08-24 15:55] LABS: BILIRUBIN,TOTAL 1.6 mg/dL (0.2-1); TOT PROT 7.6 g/dl (6.4-8.2)
[2020-08-24 16:29] LABS: HIV INTERPRETATION NEGATIVE (NEGATIVE)
[2020-08-24] MEDS: cloNIDine HCL 0.1 MG TABLET PO PRN (22:24)
[2020-08-24] MEDS: THIAMINE HCL 100 MG TABLET (FP) PO SCH (22:24)
[2020-08-24] MEDS: MIRTAZAPINE 15 MG TABLET (FP) PO SCH (22:24)
[2020-08-24] MEDS: MELATONIN 5 MG TABLETS PO SCH (22:24)
[2020-08-25] MEDS: cloNIDine HCL 0.1 MG TABLET PO PRN (05:32)
[2020-08-25] MEDS: hydrOXYzine PAMOATE 25 MG CAPSULE (FP) PO SCH ×5 (05:32→22:05)
[2020-08-25] MEDS ORDERED: ALBUTEROL SO4 HFA INHALER IH PRN (07:59)
[2020-08-25] MEDS ORDERED: DICYCLOMINE HCL 10 MG CAPSULE PO ONE (08:41)
[2020-08-25] MEDS ORDERED: METHOCARBAMOL 750 MG TAB PO ONE (08:45)
[2020-08-25] MEDS ORDERED: METHADONE HCL 10 MG TABLET (FOR DETOX USE ONLY) ONE (09:32)
[2020-08-25] MEDS ORDERED: METHADONE HCL 5 MG TABLET (FOR DETOX USE ONLY) ONE (09:32)
[2020-08-25] MEDS: FAMOTIDINE 20 MG TABLET PO SCH ×2 (09:40→22:05)
[2020-08-25] MEDS: PRENATAL VITAMINS W/ FOLIC ACID TABLET (FP) PO SCH (09:40)
[2020-08-25] MEDS: diazePAM 5 MG TABLET PO PRN ×4 (09:41→22:42)
[2020-08-25] MEDS ORDERED: METHADONE (DETOX) 20 MG, METHADONE (DETOX) 5 MG PO ONE (10:00)
[2020-08-25] MEDS: METHOCARBAMOL 500 MG TABLET PO PRN (18:32)
[2020-08-25] MEDS: MELATONIN 5 MG TABLETS PO SCH (22:04)
[2020-08-25] MEDS: THIAMINE HCL 100 MG TABLET (FP) PO SCH (22:04)
[2020-08-25] MEDS: MIRTAZAPINE 15 MG TABLET (FP) PO SCH (22:05)
[2020-08-26] MEDS: METHOCARBAMOL 500 MG TABLET PO PRN ×2 (00:52→10:16)
[2020-08-26] MEDS: cloNIDine HCL 0.1 MG TABLET PO PRN (03:47)
[2020-08-26] MEDS: hydrOXYzine PAMOATE 25 MG CAPSULE (FP) PO SCH ×2 (07:00→10:13)
[2020-08-26] MEDS ORDERED: diazePAM 5 MG TABLET PO ONE (09:00)
[2020-08-26] MEDS ORDERED: METHADONE HCL 10 MG TABLET (FOR DETOX USE ONLY) PO ONE (10:00)
[2020-08-26] MEDS: PRENATAL VITAMINS W/ FOLIC ACID TABLET (FP) PO SCH (10:12)
[2020-08-26] MEDS: FAMOTIDINE 20 MG TABLET PO SCH (10:13)
[2020-08-26 11:26] LABS: ALBUMIN 3.8 g/dl (3.4-5.0)
[2020-08-26 11:28] LABS: BILIRUBIN,DIRECT 0.2 mg/dL (0.0-0.2)
[2020-08-26 11:30] LABS: BILIRUBIN,TOTAL 0.4 mg/dL (0.2-1); TOT PROT 6.7 g/dl (6.4-8.2)
[2020-08-26 13:07] VITALS: BP 108/77; PULSE 78; TEMP 97.8
[2020-08-27] MEDS ORDERED: METHADONE (DETOX) 10 MG, METHADONE (DETOX) 5 MG PO ONE (10:00)
[2020-08-28] MEDS ORDERED: METHADONE HCL 10 MG TABLET (FOR DETOX USE ONLY) PO ONE (10:00)
[2020-08-29] MEDS ORDERED: METHADONE HCL 5 MG TABLET (FOR DETOX USE ONLY) PO ONE (06:00)
== END 2020-08-26 13:02 | disposition left against medical advice (07) | DRG 770 ==
LOC: YASAS 11:44 → Y6N 12:46
PROVIDERS: ADMIT Allergy & Immunology; ATTEND Allergy & Immunology
PROC: HZ2ZZZZ Detoxification Services for Substance Abuse Treatment (ICD-10-PCS; principal; 2020-08-24)
DX: F11.23 Opioid dependence with withdrawal (principal); F13.230 Sedative, hypnotic or anxiolytic dependence with withdrawal, uncomplicated; F17.210 Nicotine dependence, cigarettes, uncomplicated; F19.24 Other psychoactive substance dependence with psychoactive substance-induced mood disorder; F90.9 Attention-deficit hyperactivity disorder, unspecified type; F31.9 Bipolar disorder, unspecified; J45.909 Unspecified asthma, uncomplicated; G47.00 Insomnia, unspecified; B18.2 Chronic viral hepatitis C; Z91.14 Patient's other noncompliance with medication regimen; Z88.0 Allergy status to penicillin
CPT/HCPCS: 36415; 80053; 80076; 82962; 85027; 86780; 87389; C9803; J0735; Q0162; U0003; U0005

== ENCOUNTER 2020-10-18 15:42 | Inpatient (IN) | payer OTHER ==
[2020-10-18 19:39] VITALS: BMI 20.3
[2020-10-18] MEDS ORDERED: ALBUTEROL SO4 HFA INHALER IH PRN (20:45)
[2020-10-18] MEDS ORDERED: MAGNESIUM HYDROX 2400MG/30ML ORAL SUSPENSION 30 ML CUP PO PRN (20:46)
[2020-10-18] MEDS ORDERED: guaiFENesin 200 MG/10 ML 10 ML UNIT-DOSE CUPS PO PRN (20:46)
[2020-10-18] MEDS ORDERED: P-EPHED 60MG/TRIPROLIDI 2.5MG TABLET PO PRN (20:46)
[2020-10-18] MEDS ORDERED: DICYCLOMINE HCL 10 MG CAPSULE PO PRN (20:46)
[2020-10-18] MEDS ORDERED: MAGNESIUM CITRATE 300 ML BOTTLE PO PRN (20:46)
[2020-10-18] MEDS ORDERED: IBUPROFEN 400 MG TABLET (FP) PO PRN (20:46)
[2020-10-18] MEDS ORDERED: BISMUTH SUBSALICYLATE 524 MG/30 ML PO PRN (20:46)
[2020-10-18] MEDS ORDERED: NALOXONE HCL 0.4 MG/ML VIAL IM PRN (20:46)
[2020-10-18] MEDS ORDERED: NICOTINE 10 MG CARTRIDGE (INHALER) IH PRN (20:46)
[2020-10-18] MEDS ORDERED: clonazePAM 0.5 MG ODT TABLETS SL PRN (20:46)
[2020-10-18] MEDS ORDERED: methaDONE HCL 10 MG TABLET (FOR DETOX USE ONLY) PO ONE (20:46)
[2020-10-18] MEDS ORDERED: ACETAMINOPHEN 325 MG TABLET (FP) PO PRN ×2 (20:46)
[2020-10-18] MEDS ORDERED: MENTHOL/PHENOL 1 EACH UD MM PRN (20:46)
[2020-10-18] MEDS ORDERED: NALOXONE (NARCAN) HCL 4 MG/0.1 ML SPRAY NS PRN (20:46)
[2020-10-18] MEDS ORDERED: cloNIDine HCL 0.1 MG TABLET PO PRN (20:46)
[2020-10-18] MEDS ORDERED: GABAPENTIN 300 MG CAPSULE PO SCH (22:00)
[2020-10-18] MEDS: MELATONIN 5 MG TABLETS PO SCH (22:44)
[2020-10-18] MEDS: diazePAM 5 MG TABLET PO SCH (22:45)
[2020-10-18] MEDS: THIAMINE HCL 100 MG TABLET (FP) PO SCH (22:45)
[2020-10-18] MEDS: MAG HYDROX/AL HYDROX/SIMETH 30 ML UNIT-DOSE CUP PO PRN (22:49)
[2020-10-18] MEDS: GABAPENTIN 400 MG CAPSULE PO SCH (23:11)
[2020-10-19] MEDS: diazePAM 5 MG TABLET PO SCH ×4 (05:03→22:10)
[2020-10-19] MEDS: MAG HYDROX/AL HYDROX/SIMETH 30 ML UNIT-DOSE CUP PO PRN (09:34)
[2020-10-19] MEDS ORDERED: methaDONE HCL 10 MG TABLET (FOR DETOX USE ONLY) ONE (09:44)
[2020-10-19] MEDS: PRENATAL VITAMINS W/ FOLIC ACID TABLET (FP) PO SCH (10:03)
[2020-10-19] MEDS: GABAPENTIN 400 MG CAPSULE PO SCH ×2 (10:05→22:10)
[2020-10-19 11:03] LABS: HEMOGLOBIN 12.8 GM/dL (11.7-16.9); MCH 27.8 pg (25.7-33.7); MCHC 33.8 g/dl (32.0-35.9); MEAN CELL VOLUME 82.4 fl (80-96); MEAN PLT VOLUME 8.4 fl (7.5-11.1); PLATELET COUNT 209 10^3/uL (134-434); RBC 4.61 M/mm3 (4.00-5.60); RDW 14.5 % (11.9-15.9); WHITE BLOOD COUNT 5.1 K/mm3 (4.0-10.0)
[2020-10-19 11:18] LABS: ALBUMIN 3.9 g/dl (3.4-5.0); BLOOD UREA NITROGEN 10.7 mg/dL (7-18); CALCIUM 8.9 mg/dL (8.5-10.1)
[2020-10-19 11:22] LABS: CREATININE 0.7 mg/dL (0.55-1.3)
[2020-10-19 11:23] LABS: BILIRUBIN,TOTAL 0.6 mg/dL (0.2-1)
[2020-10-19 11:27] LABS: TOT PROT 6.7 g/dl (6.4-8.2)
[2020-10-19] MEDS: PANTOPRAZOLE 40 MG TABLET PO SCH (11:29)
[2020-10-19] MEDS: diazePAM 5 MG TABLET PO PRN (14:19)
[2020-10-19] MEDS: THIAMINE HCL 100 MG TABLET (FP) PO SCH (22:10)
[2020-10-19] MEDS: MELATONIN 5 MG TABLETS PO SCH (22:10)
[2020-10-19] MEDS: busPIRone HCL 10 MG TABLET (FP) PO SCH (22:10)
[2020-10-19] MEDS: CYCLOBENZAPRINE HCL 10 MG TABLET (FP) PO PRN (22:12)
[2020-10-20] MEDS: diazePAM 5 MG TABLET PO PRN ×3 (02:09→17:31)
[2020-10-20] MEDS: diazePAM 5 MG TABLET PO SCH ×3 (05:51→22:09)
[2020-10-20] MEDS ORDERED: methaDONE HCL 10 MG TABLET (FOR DETOX USE ONLY) PO ONE (10:00)
[2020-10-20] MEDS: PRENATAL VITAMINS W/ FOLIC ACID TABLET (FP) PO SCH (10:01)
[2020-10-20] MEDS: busPIRone HCL 10 MG TABLET (FP) PO SCH ×2 (10:02→22:09)
[2020-10-20] MEDS: GABAPENTIN 400 MG CAPSULE PO SCH ×2 (10:02→22:09)
[2020-10-20] MEDS: PANTOPRAZOLE 40 MG TABLET PO SCH (10:02)
[2020-10-20] MEDS: CYCLOBENZAPRINE HCL 10 MG TABLET (FP) PO PRN ×2 (13:54→22:10)
[2020-10-20] MEDS: THIAMINE HCL 100 MG TABLET (FP) PO SCH (22:09)
[2020-10-20] MEDS: MELATONIN 5 MG TABLETS PO SCH (22:09)
[2020-10-21] MEDS: diazePAM 5 MG TABLET PO PRN ×4 (00:56→20:10)
[2020-10-21] MEDS: diazePAM 5 MG TABLET PO SCH ×2 (05:09→17:34)
[2020-10-21] MEDS ORDERED: methaDONE HCL 10 MG TABLET (FOR DETOX USE ONLY) ONE (09:50)
[2020-10-21] MEDS: GABAPENTIN 400 MG CAPSULE PO SCH ×2 (10:47→22:04)
[2020-10-21] MEDS: LIDOCAINE 5% TOPICAL PATCH TP SCH (10:47)
[2020-10-21] MEDS: PRENATAL VITAMINS W/ FOLIC ACID TABLET (FP) PO SCH (10:47)
[2020-10-21] MEDS: busPIRone HCL 10 MG TABLET (FP) PO SCH ×2 (10:47→22:06)
[2020-10-21] MEDS: PANTOPRAZOLE 40 MG TABLET PO SCH (10:48)
[2020-10-21] MEDS: CYCLOBENZAPRINE HCL 10 MG TABLET (FP) PO PRN ×2 (10:51→22:07)
[2020-10-21] MEDS: THIAMINE HCL 100 MG TABLET (FP) PO SCH (22:04)
[2020-10-21] MEDS: MELATONIN 5 MG TABLETS PO SCH (22:05)
[2020-10-21] MEDS: LIDOCAINE PATCH REMOVAL MC SCH (22:05)
[2020-10-22] MEDS ORDERED: diazePAM 5 MG TABLET PO ONE (06:00)
[2020-10-22] MEDS ORDERED: methaDONE HCL 10 MG TABLET (FOR DETOX USE ONLY) PO ONE (10:00)
[2020-10-22] MEDS: PRENATAL VITAMINS W/ FOLIC ACID TABLET (FP) PO SCH (10:22)
[2020-10-22] MEDS: busPIRone HCL 10 MG TABLET (FP) PO SCH ×3 (10:22→22:26)
[2020-10-22] MEDS: GABAPENTIN 400 MG CAPSULE PO SCH ×2 (10:22→22:23)
[2020-10-22] MEDS: PANTOPRAZOLE 40 MG TABLET PO SCH (10:23)
[2020-10-22] MEDS: LIDOCAINE 5% TOPICAL PATCH TP SCH (10:27)
[2020-10-22] MEDS ORDERED: ONDANSETRON *ODT* 4 MG TABLET SL ONE (12:55)
[2020-10-22] MEDS: CYCLOBENZAPRINE HCL 10 MG TABLET (FP) PO PRN ×2 (12:57→22:23)
[2020-10-22] MEDS ORDERED: MIRTAZAPINE 15 MG TABLET (FP) PO SCH (22:00)
[2020-10-22] MEDS: LIDOCAINE PATCH REMOVAL MC SCH (22:24)
[2020-10-22] MEDS: MELATONIN 5 MG TABLETS PO SCH (22:24)
[2020-10-22] MEDS: THIAMINE HCL 100 MG TABLET (FP) PO SCH (22:24)
[2020-10-23 06:35] VITALS: TEMP 97.3
[2020-10-23 09:42] VITALS: BP 116/68; PULSE 83
[2020-10-23] MEDS: PANTOPRAZOLE 40 MG TABLET PO SCH (10:28)
[2020-10-23] MEDS: PRENATAL VITAMINS W/ FOLIC ACID TABLET (FP) PO SCH (10:28)
[2020-10-23] MEDS: GABAPENTIN 400 MG CAPSULE PO SCH (10:28)
[2020-10-23] MEDS: busPIRone HCL 10 MG TABLET (FP) PO SCH (10:29)
[2020-10-23] MEDS: LIDOCAINE 5% TOPICAL PATCH TP SCH (10:30)
[2020-10-23] MEDS: CYCLOBENZAPRINE HCL 10 MG TABLET (FP) PO PRN (10:30)
== END 2020-10-23 11:50 | disposition home or self-care (01) | DRG 773 ==
LOC: YASAS 15:42 → Y3N 20:39
PROVIDERS: ADMIT Allergy & Immunology; ATTEND Allergy & Immunology
PROC: HZ2ZZZZ Detoxification Services for Substance Abuse Treatment (ICD-10-PCS; principal; 2020-10-18)
DX: F11.23 Opioid dependence with withdrawal (principal); F13.230 Sedative, hypnotic or anxiolytic dependence with withdrawal, uncomplicated; F10.20 Alcohol dependence, uncomplicated; F14.20 Cocaine dependence, uncomplicated; F12.20 Cannabis dependence, uncomplicated; F19.282 Other psychoactive substance dependence with psychoactive substance-induced sleep disorder; F19.24 Other psychoactive substance dependence with psychoactive substance-induced mood disorder; J45.20 Mild intermittent asthma, uncomplicated; M54.40 Lumbago with sciatica, unspecified side; B18.2 Chronic viral hepatitis C; K59.03 Drug induced constipation; T40.2X5A Adverse effect of other opioids, initial encounter; Y92.89 Other specified places as the place of occurrence of the external cause; Z87.891 Personal history of nicotine dependence; Z88.0 Allergy status to penicillin
CPT/HCPCS: 36415; 80053; 85027; 86780; C9803; Q0162; U0003; U0005

== ENCOUNTER 2020-11-22 14:51 | Inpatient (IN) | payer OTHER ==
[2020-11-22] MEDS ORDERED: MENTHOL/PHENOL 1 EACH UD MM PRN (20:21)
[2020-11-22] MEDS ORDERED: ONDANSETRON *ODT* 4 MG TABLET SL PRN (20:21)
[2020-11-22] MEDS ORDERED: ACETAMINOPHEN 325 MG TABLET (FP) PO PRN ×2 (20:21)
[2020-11-22] MEDS ORDERED: BISMUTH SUBSALICYLATE 524 MG/30 ML PO PRN (20:21)
[2020-11-22] MEDS ORDERED: MAG HYDROX/AL HYDROX/SIMETH 30 ML UNIT-DOSE CUP PO PRN (20:21)
[2020-11-22] MEDS ORDERED: MAGNESIUM CITRATE 300 ML BOTTLE PO PRN (20:21)
[2020-11-22] MEDS ORDERED: IBUPROFEN 400 MG TABLET (FP) PO PRN (20:21)
[2020-11-22] MEDS ORDERED: METHOCARBAMOL 500 MG TABLET PO PRN (20:21)
[2020-11-22] MEDS ORDERED: MAGNESIUM HYDROX 2400MG/30ML ORAL SUSPENSION 30 ML CUP PO PRN (20:21)
[2020-11-22] MEDS ORDERED: cloNIDine HCL 0.1 MG TABLET PO PRN (20:23)
[2020-11-22] MEDS ORDERED: methaDONE HCL 10 MG TABLET (FOR DETOX USE ONLY) PO ONE (20:23)
[2020-11-22 21:04] VITALS: BMI 21.2
[2020-11-22] MEDS: THIAMINE HCL 100 MG TABLET (FP) PO SCH (22:51)
[2020-11-22] MEDS: PANTOPRAZOLE 40 MG TABLET PO SCH (22:51)
[2020-11-22] MEDS: GABAPENTIN 300 MG CAPSULE PO SCH (22:51)
[2020-11-22] MEDS: CYCLOBENZAPRINE HCL 10 MG TABLET (FP) PO SCH (22:54)
[2020-11-22] MEDS: MELATONIN 5 MG TABLETS PO SCH (22:55)
[2020-11-23] MEDS: diazePAM 5 MG TABLET PO PRN ×4 (04:32→17:58)
[2020-11-23] MEDS ORDERED: methaDONE HCL 10 MG TABLET (FOR DETOX USE ONLY) ONE (08:57)
[2020-11-23 10:30] LABS: HEMOGLOBIN 12.8 GM/dL (11.7-16.9); MCH 27.7 pg (25.7-33.7); MCHC 33.7 g/dl (32.0-35.9); MEAN CELL VOLUME 82.2 fl (80-96); PLATELET COUNT 214 10^3/uL (134-434); RBC 4.62 M/mm3 (4.00-5.60); RDW 13.9 % (11.9-15.9); WHITE BLOOD COUNT 4.7 K/mm3 (4.0-10.0)
[2020-11-23] MEDS: PANTOPRAZOLE 40 MG TABLET PO SCH (10:35)
[2020-11-23] MEDS: GABAPENTIN 300 MG CAPSULE PO SCH ×2 (10:35→22:06)
[2020-11-23] MEDS: PRENATAL VITAMINS W/ FOLIC ACID TABLET (FP) PO SCH (10:35)
[2020-11-23 10:36] LABS: CREATININE 0.9 mg/dL (0.55-1.3)
[2020-11-23 10:38] LABS: ALBUMIN 3.6 g/dl (3.4-5.0); BILIRUBIN,TOTAL 0.4 mg/dL (0.2-1); BLOOD UREA NITROGEN 13.2 mg/dL (7-18); TOT PROT 6.7 g/dl (6.4-8.2)
[2020-11-23 10:40] LABS: CALCIUM 9.1 mg/dL (8.5-10.1)
[2020-11-23] MEDS: CYCLOBENZAPRINE HCL 10 MG TABLET (FP) PO SCH (10:57)
[2020-11-23] MEDS: CYCLOBENZAPRINE HCL 5 MG TABLET PO SCH ×2 (11:11→22:07)
[2020-11-23] MEDS: LIDOCAINE 5% TOPICAL PATCH TP SCH (14:51)
[2020-11-23] MEDS: THIAMINE HCL 100 MG TABLET (FP) PO SCH (22:07)
[2020-11-23] MEDS: MIRTAZAPINE 15 MG TABLET (FP) PO SCH (22:07)
[2020-11-23] MEDS: MELATONIN 5 MG TABLETS PO SCH (22:07)
[2020-11-23] MEDS: LIDOCAINE PATCH REMOVAL MC SCH (22:08)
[2020-11-24] MEDS: diazePAM 5 MG TABLET PO PRN ×6 (00:55→22:44)
[2020-11-24] MEDS ORDERED: methaDONE HCL 10 MG TABLET (FOR DETOX USE ONLY) PO ONE (10:00)
[2020-11-24] MEDS: GABAPENTIN 300 MG CAPSULE PO SCH ×2 (10:22→22:43)
[2020-11-24] MEDS: CYCLOBENZAPRINE HCL 5 MG TABLET PO SCH ×2 (10:22→23:09)
[2020-11-24] MEDS: PANTOPRAZOLE 40 MG TABLET PO SCH (10:22)
[2020-11-24] MEDS: LIDOCAINE 5% TOPICAL PATCH TP SCH (10:23)
[2020-11-24] MEDS: PRENATAL VITAMINS W/ FOLIC ACID TABLET (FP) PO SCH (10:23)
[2020-11-24] MEDS: MELATONIN 5 MG TABLETS PO SCH (22:43)
[2020-11-24] MEDS: MIRTAZAPINE 15 MG TABLET (FP) PO SCH (22:43)
[2020-11-24] MEDS: THIAMINE HCL 100 MG TABLET (FP) PO SCH (22:43)
[2020-11-24] MEDS: LIDOCAINE PATCH REMOVAL MC SCH ×2 (23:09→23:13)
[2020-11-25] MEDS: hydrOXYzine PAMOATE 25 MG CAPSULE (FP) PO PRN (06:04)
[2020-11-25] MEDS: diazePAM 5 MG TABLET PO PRN ×3 (06:05→15:37)
[2020-11-25] MEDS ORDERED: methaDONE HCL 10 MG TABLET (FOR DETOX USE ONLY) ONE (08:58)
[2020-11-25] MEDS: PANTOPRAZOLE 40 MG TABLET PO SCH (10:06)
[2020-11-25] MEDS: GABAPENTIN 300 MG CAPSULE PO SCH ×2 (10:07→21:51)
[2020-11-25] MEDS: CYCLOBENZAPRINE HCL 5 MG TABLET PO SCH ×2 (10:07→21:51)
[2020-11-25] MEDS: PRENATAL VITAMINS W/ FOLIC ACID TABLET (FP) PO SCH (10:08)
[2020-11-25] MEDS: LIDOCAINE 5% TOPICAL PATCH TP SCH (10:08)
[2020-11-25] MEDS: THIAMINE HCL 100 MG TABLET (FP) PO SCH (21:51)
[2020-11-25] MEDS: MIRTAZAPINE 15 MG TABLET (FP) PO SCH (21:51)
[2020-11-25] MEDS: MELATONIN 5 MG TABLETS PO SCH (21:52)
[2020-11-25] MEDS: LIDOCAINE PATCH REMOVAL MC SCH (22:37)
[2020-11-26] MEDS ORDERED: methaDONE HCL 10 MG TABLET (FOR DETOX USE ONLY) PO ONE (10:00)
[2020-11-26] MEDS: PANTOPRAZOLE 40 MG TABLET PO SCH (11:25)
[2020-11-26] MEDS: GABAPENTIN 300 MG CAPSULE PO SCH ×2 (11:25→22:16)
[2020-11-26] MEDS: PRENATAL VITAMINS W/ FOLIC ACID TABLET (FP) PO SCH (11:25)
[2020-11-26] MEDS: LIDOCAINE 5% TOPICAL PATCH TP SCH (11:30)
[2020-11-26] MEDS: CYCLOBENZAPRINE HCL 5 MG TABLET PO SCH ×2 (14:41→22:16)
[2020-11-26] MEDS: hydrOXYzine PAMOATE 25 MG CAPSULE (FP) PO PRN (22:16)
[2020-11-26] MEDS: MIRTAZAPINE 15 MG TABLET (FP) PO SCH (22:16)
[2020-11-26] MEDS: THIAMINE HCL 100 MG TABLET (FP) PO SCH (22:16)
[2020-11-26] MEDS: MELATONIN 5 MG TABLETS PO SCH (22:16)
[2020-11-26] MEDS: LIDOCAINE PATCH REMOVAL MC SCH (23:18)
[2020-11-27 09:32] VITALS: BP 124/77; PULSE 72; TEMP 96.8
[2020-11-27] MEDS: PRENATAL VITAMINS W/ FOLIC ACID TABLET (FP) PO SCH (11:37)
[2020-11-27] MEDS: CYCLOBENZAPRINE HCL 5 MG TABLET PO SCH (11:37)
[2020-11-27] MEDS: GABAPENTIN 300 MG CAPSULE PO SCH (11:37)
[2020-11-27] MEDS: LIDOCAINE 5% TOPICAL PATCH TP SCH (11:37)
[2020-11-27] MEDS: PANTOPRAZOLE 40 MG TABLET PO SCH (11:37)
== END 2020-11-27 09:33 | disposition home or self-care (01) | DRG 773 ==
LOC: YASAS 14:51 → Y3N 20:17
PROVIDERS: ADMIT Allergy & Immunology; ATTEND Allergy & Immunology
PROC: HZ2ZZZZ Detoxification Services for Substance Abuse Treatment (ICD-10-PCS; principal; 2020-11-22)
DX: F11.23 Opioid dependence with withdrawal (principal); F13.10 Sedative, hypnotic or anxiolytic abuse, uncomplicated; F14.20 Cocaine dependence, uncomplicated; F12.20 Cannabis dependence, uncomplicated; G40.909 Epilepsy, unspecified, not intractable, without status epilepticus; K59.03 Drug induced constipation; K21.9 Gastro-esophageal reflux disease without esophagitis; J45.909 Unspecified asthma, uncomplicated; M54.40 Lumbago with sciatica, unspecified side; G89.29 Other chronic pain; B18.2 Chronic viral hepatitis C; Z88.0 Allergy status to penicillin; Z87.891 Personal history of nicotine dependence; Z91.19 Patient's noncompliance with other medical treatment and regimen
CPT/HCPCS: 36415; 80053; 85027; 86780; C9803; U0003; U0005

== ENCOUNTER 2021-01-03 14:39 | Inpatient (IN) | payer OTHER ==
[2021-01-03] MEDS ORDERED: BISMUTH SUBSALICYLATE 262 MG/15 ML BTL PO PRN (15:26)
[2021-01-03] MEDS ORDERED: MAGNESIUM CITRATE 300 ML BOTTLE PO PRN (15:26)
[2021-01-03] MEDS ORDERED: cloNIDine HCL 0.1 MG TABLET PO PRN (15:26)
[2021-01-03] MEDS ORDERED: MENTHOL/PHENOL 1 EACH UD MM PRN (15:26)
[2021-01-03] MEDS ORDERED: ONDANSETRON *ODT* 4 MG TABLET SL PRN (15:26)
[2021-01-03] MEDS ORDERED: methaDONE HCL 10 MG TABLET (FOR DETOX USE ONLY) PO ONE ×2 (15:26→19:45)
[2021-01-03] MEDS ORDERED: MAGNESIUM HYDROX 2400MG/30ML ORAL SUSPENSION 30 ML CUP PO PRN (15:26)
[2021-01-03] MEDS ORDERED: ACETAMINOPHEN 325 MG TABLET (FP) PO PRN ×2 (15:26)
[2021-01-03] MEDS ORDERED: IBUPROFEN 400 MG TABLET (FP) PO PRN (15:26)
[2021-01-03 16:28] VITALS: BMI 22.7
[2021-01-03] MEDS: PRENATAL VITAMINS W/ FOLIC ACID TABLET (FP) PO SCH (19:52)
[2021-01-03] MEDS: diazePAM 5 MG TABLET PO SCH ×2 (19:53→22:39)
[2021-01-03] MEDS: hydrOXYzine PAMOATE 25 MG CAPSULE (FP) PO SCH ×2 (19:53→22:39)
[2021-01-03] MEDS ORDERED: MELATONIN 5 MG TABLETS PO SCH (22:00)
[2021-01-03] MEDS: THIAMINE HCL 100 MG TABLET (FP) PO SCH (22:39)
[2021-01-04] MEDS: MAG HYDROX/AL HYDROX/SIMETH 30 ML UNIT-DOSE CUP PO PRN ×2 (04:04→10:30)
[2021-01-04] MEDS: METHOCARBAMOL 500 MG TABLET PO PRN ×2 (04:05→10:30)
[2021-01-04] MEDS: diazePAM 5 MG TABLET PO SCH ×4 (04:05→22:10)
[2021-01-04] MEDS: hydrOXYzine PAMOATE 25 MG CAPSULE (FP) PO SCH ×5 (05:56→22:10)
[2021-01-04] MEDS: diazePAM 5 MG TABLET PO PRN ×2 (08:27→15:28)
[2021-01-04] MEDS ORDERED: methaDONE HCL 10 MG TABLET (FOR DETOX USE ONLY) ONE (10:09)
[2021-01-04 10:14] LABS: HEMATOCRIT 34.2 % (35.4-49); HEMOGLOBIN 11.4 GM/dL (11.7-16.9); MCH 27.5 pg (25.7-33.7); MCHC 33.4 g/dl (32.0-35.9); MEAN CELL VOLUME 82.3 fl (80-96); MEAN PLT VOLUME 8.1 fl (7.5-11.1); PLATELET COUNT 170 10^3/uL (134-434); RBC 4.15 M/mm3 (4.00-5.60); RDW 13.9 % (11.9-15.9); WHITE BLOOD COUNT 4.4 K/mm3 (4.0-10.0)
[2021-01-04 10:20] LABS: CALCIUM 8.4 mg/dL (8.5-10.1)
[2021-01-04 10:21] LABS: BLOOD UREA NITROGEN 10.3 mg/dL (7-18)
[2021-01-04 10:23] LABS: CREATININE 0.9 mg/dL (0.55-1.3)
[2021-01-04 10:26] LABS: BILIRUBIN,TOTAL 0.3 mg/dL (0.2-1); TOT PROT 6.1 g/dl (6.4-8.2)
[2021-01-04] MEDS: PRENATAL VITAMINS W/ FOLIC ACID TABLET (FP) PO SCH (10:31)
[2021-01-04] MEDS: PANTOPRAZOLE 40 MG TABLET PO SCH (13:29)
[2021-01-04] MEDS ORDERED: CYCLOBENZAPRINE HCL 10 MG TABLET (FP) PO PRN (16:30)
[2021-01-04] MEDS ORDERED: MIRTAZAPINE 15 MG TABLET (FP) PO SCH (22:00)
[2021-01-04] MEDS: THIAMINE HCL 100 MG TABLET (FP) PO SCH (22:10)
[2021-01-05] MEDS: diazePAM 5 MG TABLET PO PRN ×3 (02:21→12:35)
[2021-01-05] MEDS: hydrOXYzine PAMOATE 25 MG CAPSULE (FP) PO SCH ×3 (05:41→14:54)
[2021-01-05] MEDS: diazePAM 5 MG TABLET PO SCH ×2 (05:41→14:54)
[2021-01-05] MEDS ORDERED: methaDONE HCL 10 MG TABLET (FOR DETOX USE ONLY) PO ONE (10:00)
[2021-01-05] MEDS: PRENATAL VITAMINS W/ FOLIC ACID TABLET (FP) PO SCH (10:41)
[2021-01-05] MEDS: PANTOPRAZOLE 40 MG TABLET PO SCH (10:41)
[2021-01-05 13:07] VITALS: BP 108/74; PULSE 63; TEMP 97.3
[2021-01-06] MEDS ORDERED: diazePAM 5 MG TABLET PO SCH (06:00)
[2021-01-07] MEDS ORDERED: diazePAM 5 MG TABLET PO ONE (06:00)
[2021-01-07] MEDS ORDERED: methaDONE HCL 10 MG TABLET (FOR DETOX USE ONLY) PO ONE (10:00)
== END 2021-01-05 15:45 | disposition left against medical advice (07) | DRG 770 ==
LOC: YASAS 14:39 → Y3N 17:10
PROVIDERS: ADMIT Allergy & Immunology; ATTEND Allergy & Immunology
PROC: HZ2ZZZZ Detoxification Services for Substance Abuse Treatment (ICD-10-PCS; principal; 2021-01-03)
DX: F11.23 Opioid dependence with withdrawal (principal); F14.20 Cocaine dependence, uncomplicated; F13.20 Sedative, hypnotic or anxiolytic dependence, uncomplicated; F12.20 Cannabis dependence, uncomplicated; F17.210 Nicotine dependence, cigarettes, uncomplicated; F19.280 Other psychoactive substance dependence with psychoactive substance-induced anxiety disorder; F19.282 Other psychoactive substance dependence with psychoactive substance-induced sleep disorder; F19.24 Other psychoactive substance dependence with psychoactive substance-induced mood disorder; F31.9 Bipolar disorder, unspecified; F90.9 Attention-deficit hyperactivity disorder, unspecified type; D64.9 Anemia, unspecified; B18.2 Chronic viral hepatitis C; Z86.69 Personal history of other diseases of the nervous system and sense organs; Z88.0 Allergy status to penicillin
CPT/HCPCS: 36415; 80053; 85027; 86780; C9803; U0003; U0005

== ENCOUNTER 2021-01-23 11:46 | Inpatient (IN) | payer OTHER ==
[2021-01-23] MEDS ORDERED: ACETAMINOPHEN 325 MG TABLET (FP) PO PRN ×2 (12:22)
[2021-01-23] MEDS ORDERED: ONDANSETRON *ODT* 4 MG TABLET SL PRN (12:22)
[2021-01-23] MEDS ORDERED: MAGNESIUM CITRATE 300 ML BOTTLE PO PRN (12:22)
[2021-01-23] MEDS ORDERED: MAGNESIUM HYDROX 2400MG/30ML ORAL SUSPENSION 30 ML CUP PO PRN (12:22)
[2021-01-23] MEDS ORDERED: MENTHOL/PHENOL 1 EACH UD MM PRN (12:22)
[2021-01-23] MEDS ORDERED: IBUPROFEN 400 MG TABLET (FP) PO PRN (12:22)
[2021-01-23] MEDS ORDERED: BISMUTH SUBSALICYLATE 524 MG/30 ML PO PRN (12:22)
[2021-01-23 12:28] VITALS: BMI 20.9
[2021-01-23] MEDS ORDERED: cloNIDine HCL 0.1 MG TABLET PO PRN (13:16)
[2021-01-23] MEDS ORDERED: methaDONE HCL 10 MG TABLET (FOR DETOX USE ONLY) PO ONE ×2 (13:45→18:15)
[2021-01-23 14:49] LABS: ALBUMIN 4.2 g/dl (3.4-5.0); BLOOD UREA NITROGEN 13.6 mg/dL (7-18); CALCIUM 9.4 mg/dL (8.5-10.1); HEMATOCRIT 40.3 % (35.4-49); HEMOGLOBIN 13.5 GM/dL (11.7-16.9); MCH 27.5 pg (25.7-33.7); MCHC 33.4 g/dl (32.0-35.9); MEAN CELL VOLUME 82.2 fl (80-96); MEAN PLT VOLUME 8.4 fl (7.5-11.1); PLATELET COUNT 276 10^3/uL (134-434); RDW 14.2 % (11.9-15.9); WHITE BLOOD COUNT 6.3 K/mm3 (4.0-10.0)
[2021-01-23 14:53] LABS: CREATININE 0.8 mg/dL (0.55-1.3)
[2021-01-23 14:54] LABS: BILIRUBIN,TOTAL 0.7 mg/dL (0.2-1); TOT PROT 7.8 g/dl (6.4-8.2)
[2021-01-23] MEDS: diazePAM 5 MG TABLET PO PRN ×2 (14:54→21:05)
[2021-01-23] MEDS: hydrOXYzine PAMOATE 25 MG CAPSULE (FP) PO SCH ×3 (14:55→23:01)
[2021-01-23] MEDS: MAG HYDROX/AL HYDROX/SIMETH 30 ML UNIT-DOSE CUP PO PRN (14:55)
[2021-01-23] MEDS: METHOCARBAMOL 500 MG TABLET PO PRN ×2 (14:55→23:03)
[2021-01-23] MEDS: PRENATAL VITAMINS W/ FOLIC ACID TABLET (FP) PO SCH (15:00)
[2021-01-23] MEDS: diazePAM 5 MG TABLET PO SCH ×2 (18:09→23:37)
[2021-01-23] MEDS ORDERED: MELATONIN 5 MG TABLETS PO SCH (22:00)
[2021-01-23] MEDS: THIAMINE HCL 100 MG TABLET (FP) PO SCH (23:01)
[2021-01-23] MEDS: MIRTAZAPINE 30 MG TABLET PO SCH (23:01)
[2021-01-24] MEDS: diazePAM 5 MG TABLET PO PRN ×3 (01:52→19:52)
[2021-01-24] MEDS: diazePAM 5 MG TABLET PO SCH ×4 (05:21→21:59)
[2021-01-24] MEDS: hydrOXYzine PAMOATE 25 MG CAPSULE (FP) PO SCH ×5 (05:21→21:57)
[2021-01-24] MEDS ORDERED: methaDONE HCL 10 MG TABLET (FOR DETOX USE ONLY) ONE (09:20)
[2021-01-24] MEDS: PRENATAL VITAMINS W/ FOLIC ACID TABLET (FP) PO SCH (10:34)
[2021-01-24] MEDS: METHOCARBAMOL 500 MG TABLET PO PRN ×2 (10:35→17:40)
[2021-01-24] MEDS: PANTOPRAZOLE 40 MG TABLET PO SCH (10:35)
[2021-01-24] MEDS: MAG HYDROX/AL HYDROX/SIMETH 30 ML UNIT-DOSE CUP PO PRN (15:09)
[2021-01-24] MEDS: MIRTAZAPINE 30 MG TABLET PO SCH (21:57)
[2021-01-24] MEDS: THIAMINE HCL 100 MG TABLET (FP) PO SCH (21:57)
[2021-01-25] MEDS: diazePAM 5 MG TABLET PO PRN ×2 (02:58→08:02)
[2021-01-25] MEDS: hydrOXYzine PAMOATE 25 MG CAPSULE (FP) PO SCH ×2 (05:43→10:00)
[2021-01-25] MEDS ORDERED: diazePAM 5 MG TABLET PO SCH (06:00)
[2021-01-25] MEDS ORDERED: methaDONE HCL 10 MG TABLET (FOR DETOX USE ONLY) PO ONE (10:00)
[2021-01-25] MEDS: PRENATAL VITAMINS W/ FOLIC ACID TABLET (FP) PO SCH (10:00)
[2021-01-25] MEDS: PANTOPRAZOLE 40 MG TABLET PO SCH (10:00)
[2021-01-25 10:08] VITALS: BP 126/76; PULSE 96; TEMP 98.2
[2021-01-26] MEDS ORDERED: diazePAM 5 MG TABLET PO SCH (06:00)
[2021-01-27] MEDS ORDERED: diazePAM 5 MG TABLET PO ONE (06:00)
[2021-01-27] MEDS ORDERED: methaDONE HCL 10 MG TABLET (FOR DETOX USE ONLY) PO ONE (10:00)
== END 2021-01-25 10:12 | disposition left against medical advice (07) | DRG 773 ==
LOC: YASAS 11:46 → Y6N 12:57
PROVIDERS: ADMIT Allergy & Immunology; ATTEND Allergy & Immunology
PROC: HZ2ZZZZ Detoxification Services for Substance Abuse Treatment (ICD-10-PCS; principal; 2021-01-23)
DX: F11.23 Opioid dependence with withdrawal (principal); F13.230 Sedative, hypnotic or anxiolytic dependence with withdrawal, uncomplicated; F14.20 Cocaine dependence, uncomplicated; F12.20 Cannabis dependence, uncomplicated; F19.282 Other psychoactive substance dependence with psychoactive substance-induced sleep disorder; F19.280 Other psychoactive substance dependence with psychoactive substance-induced anxiety disorder; F31.9 Bipolar disorder, unspecified; F41.8 Other specified anxiety disorders; G62.9 Polyneuropathy, unspecified; J45.909 Unspecified asthma, uncomplicated; K21.9 Gastro-esophageal reflux disease without esophagitis; B18.2 Chronic viral hepatitis C; M19.90 Unspecified osteoarthritis, unspecified site; M54.30 Sciatica, unspecified side; M54.50 Low back pain, unspecified; G89.29 Other chronic pain; G40.509 Epileptic seizures related to external causes, not intractable, without status epilepticus; Z88.0 Allergy status to penicillin; Z59.02 Unsheltered homelessness
CPT/HCPCS: 36415; 80053; 85027; 86780; C9803; U0003; U0005